=== PATIENT | female | born 1985 | race Caucasian/White ===

== ENCOUNTER 2020-03-04 13:00 | Emergency (ER) | payer BC, SELFPAY ==
[2020-03-04 13:28] VITALS: BP 148/89; PULSE 89; RESP 16; TEMP 37; O2SAT 100; BMI 46.0
--- NOTE | 2020-03-04 13:52 | ED_ITS ---
HPI - Female Genitourinary General Chief complaint: Vaginal Bleeding Stated complaint: abd pain, heavy vaginal bleeding Time Seen by Provider: 03/04/20 13:40 Source: patient Mode of arrival: ambulatory Limitations: no limitations History of Present Illness HPI Narrative: patient presents to ED for vaginal bleeding for 1 week. Patient states heavy bleeding with blood clots. Patient states her menstruation are i rregular. Patient states she took a test last week that was negative. Patient states no fever, chills, dysuria, recent abdominal trauma. Patient states no nausea or vomiting. patient states this happened last year also and bleeding was for six month. patient denies any dizziness or weakness.. Related Data Home Medications Medication Instructions Recorded Confirmed ferrous sulfate 325 mg (65 mg 325 mg PO BID 02/06/20 02/06/20 iron) tablet Previous Rx's Medication Instructions Recorded naproxen 500 mg PO BID PRN #20 tab 03/04/20 Allergies Allergy/AdvReac Type Severity Reaction Status Date / Time Sulfa (Sulfonamide Allergy Unknown hives Verified 01/09/20 00:00 Antibiotics) sulfamethoxazole Allergy Unknown HIVES Verified 03/04/20 14:19 [From BACTRIM] trimethoprim [From BACTRIM] Allergy Unknown HIVES Verified 03/04/20 14:19 Review of Systems Review of Systems: Yes all other systems are reviewed and are negative Constitutional: Constitutional: Reports as per HPI and Reports no additional constitutional complaints Eyes: Eyes: Reports as per HPI and Reports no additional eye complaints ENT: Reports system reviewed and no additional complaints, except as docume nted, Reports as per HPI and Denies dysphagia Cardiovascular: Cardiovascular: Reports as per HPI, Reports no additional cardiovascular complaints, Denies Abdominal Cramping after Meds, Denies pedal edema, Denies edema, Denies irregular heart rhythm, Denies dyspnea on exertion, Denies orthopnea and Denies paroxysmal nocturnal dyspnea Respiratory: Respiratory: Reports as per HPI, Reports no additional respiratory complaints and Denies dyspnea on exertion Gastrointestinal: Gastrointestinal: Denies no additional gastrointestinal complaints, Reports abdominal pain, Denies belching, Denies melena, Denies bloating, Denies hematochezia, Denies change in bowel habits, Denies tenesmus, Denies change in stool character, Denies coffee ground emesis, Denies constipation, Denies GI cramping, Denies dysphagia, Denies excessive flatus, Denies early satiety, Denies dyspepsia, Denies heartburn and Denies fecal incontinence Genitourinary: Genitourinary: Reports no additional female genitourinary complaints, Reports abnormal vaginal bleeding and Reports pelvic pain Musculoskeletal: Musculoskeletal: Reports no additional musculoskeletal complaints and Reports as per HPI Neurologic: Reports as per HPI Psychiatric: Psychiatric: Reports no additional psychiatric complaints and Reports as per HPI [facility] Past Medical History Attestation statement: The following information was validated with the patient. Medical History Anemia History of anemia History of PCOS Panic attack Surgical History History of myringotomy History of tonsillectomy Family History Family History Father Acute PA CVD (cardiovascular disease) Mother HTN (hypertension) Diabetes mellitus Depression Maternal Grandmother Lung cancer Paternal Grandmother Brain aneurysm CVD (cardiovascular disease) Social History Social History Advance Directives: No Advance Directives Information Provided: Yes Physical Exam Vital Signs: Vital Signs: Vital Signs Temp Pulse Resp BP Pulse Ox 03/04/20 16:50 84 20 132/78 98 03/04/20 14:58 97.7 F 71 18 124/54 L 98 03/04/20 13:28 98.6 F 89 16 148/89 H 100 Body Mass Index 46.0 Const: General: cooperative, healthy appearing, comfortable, no acute distress, well developed, alert and awake Orientation/consciousness: patient oriented x3 HENMT: Head: Yes normal to inspection and Yes No palpable skull fracture present Eyes: General: appearance normal, both eyes and all related structures Neck: Neck: Yes normal visual inspection, Yes full ROM, Yes no lymphadenopathy, Yes no meningeal signs, No positive Brudzinski's sign and No positive Kernig's sign Chest: Chest palpation & inspection: normal inspection of the chest, normal palpation of entire chest wall and no localized rib tenderness Resp: Effort & Inspection: normal respiratory effort, able to speak in complete sentences, no grunting, not labored, no nasal flaring, no paradoxical thoraco-abdom movements, no segmental paradox chest wall movement, no stridor and not tachypneic Auscultation: clear to auscultation bilaterally, no crackles, no rales, no rhonchi and no wheezes Percussion: percussion normal Cardio: Jugular venous distension: no JVD Heart sounds: S1 normal heart sound present and S2 normal heart sound present GI: Inspection: Yes normal to inspection, No abdominal wall ecchymosis and No Abdominal wall edema Palpation (GI): Soft to palpation, not firm, Tenderness to palpation present (GI) ( pelvic tenderness), no guarding and not rigid : Other: negative for any hemorrhagic bleeding. negative for any vaginal lesions. General: No CVA tenderness and Yes no CVA tenderness External Female Exam: normal external appearance Speculum Exam - Vagina: vaginal bleeding ( stable vaginal bleeding from cervical ox. Negative any blood clots.) Bimanual exam- vagina & uterus: normal bimanual exam OB/external & speculum: vaginal bleeding ( stable vaginal bleeding from cervical ox. Negative any blood clots.) Back/Spine/Pelvis: Back: no CVA tenderness, No CVA tenderness and No back tenderness Skin: General skin exam: no rashes or lesions noted Trauma: no lacerations or abrasions Neuro: General: patient oriented x3, gait normal, no meningeal signs and CN's II-XI intact bilaterally Cranial nerves: Yes CN's II-XII intact bilaterally Extrem: General: Yes normal to inspection and Yes full ROM Psych: Appearance: grossly normal, well kempt and not disheveled Course Course Course Narrative: patient will have labs including a CT to rule out . Patient will have pelvic exam done. Most likely patient will be sent for pelvic/ transvaginal ultrasound. IV fluids ordered. Reevaluation(s) Reevaluation #1: Patient is in severe pain and requests pain medication. Patient given morphine. Patient was informed that we would rather wait for results to see if she is , but patient states pain is unbearable and cannot wait for her results. Patient agrees to take morphine understanding risk. Time: 13:40 Reevaluation #2: pelvic exam does not show hemorrhaging, profuse bleeding, or blood clots. Bleeding is stable. Spoke with Dr. Randolph of [facility] and he was informed of patient's history, physical exam, diagnostics, and vital signs. He was sent pictures of patient labs and imaging. He states patient can be discharged follow-up with his OBGYN clinic. He does not recommend patient being discharged with control pills, due to patient having history of stroke. He states he will talk to patient about ablation. Patient will be discharged with pain medication. Time: 17:36 MDM - Female Genitourinary MDM Narrative Medical decision making narrative: Dysfunctional uterine bleeding. Medical Records Attestation: I reviewed the patient's medical records. Lab Data Attestation: I reviewed the patient's lab results. Result diagrams: 03/04/20 14:12 03/04/20 14:16 Labs: Lab Results 03/04/20 03/04/20 03/04/20 Range/Units 14:12 14:16 14:16 WBC 9.2 (4.8-10.8) X10*3/uL RBC 4.30 (4.20-5.50) X10*6/uL Hgb 10.8 L (12.0-16.0) g/dl Hct 34.7 L (37-47) % MCV 80.7 (80-98) fL MCH 25.1 L (27.0-33.0) pg MCHC 31.1 (31.0-35.0) g/dl RDW 15.0 (11.0-16.0) % Plt Count 397 (160-400) X10*3/uL MPV 9.2 L (9.4-12.3) fL Immature Gran % (Auto) 0.2 (0.0-0.4) % Neut % (Auto) 64.8 (45-73) % Lymph % (Auto) 27.0 (20-40) % Harper % (Auto) 6.0 (2-11) % Eos % (Auto) 1.7 (0-4) % Baso % (Auto) 0.3 (0-2) % Lymph # (Auto) 2.5 (1.2-4.9) X10*3/uL Harper # (Auto) 0.6 (0.1-1.2) X10*3/uL Eos # (Auto) 0.2 (0.0-0.4) X10*3/uL Baso # (Auto) 0.0 (0.0-0.2) X10*3/uL Abs Immat Gran (auto) 0.02 (0.00-0.03) X10*3/uL Absolute Neuts (auto) 5.9 (2.0-8.3) X10*3/uL Absolute Nucleated RBC 0.000 (0.0-0.012) X10*3/uL Nucleated RBC % (auto) 0.0 (0.0-0.2) /100WBC PT 11.6 (10.8-13.0) SEC INR 1.0 (0.9-1.1) APTT 35.9 (24.1-38.0) SEC Sodium 136 (135-145) mmol/L Potassium 4.1 (3.3-5.1) mmol/l Chloride 103 (96-108) mmol/L Carbon Dioxide 26 (22-29) mmol/L Anion Gap 11 L (12-20) BUN 7 L (9-16) mg/dL Creatinine 0.82 (0.5-1.4) mg/dL Estim Creat Clear Calc 121.1 Estimated GFR > 60 Random Glucose 135 H (60-115) mg/dL Calcium 8.4 (8.4-10.2) mg/dL Total Bilirubin 0.2 (0.0-1.0) mg/dL Direct Bilirubin (0.0-0.5) mg/dL AST 19 (5-31) U/L ALT 21 (0-31) U/L Alkaline Phosphatase 101 (39-117) U/L Total Protein 6.9 (6.5-8.0) g/dL Albumin 4.1 (3.5-5.0) g/dL Lipase (8-78) U/L Beta HCG, Quant < 2 mIU/mL Urine Color Urine Appearance Urine pH (5.0-8.0) Ur Specific [place] (1.005-1.025) Urine Protein (NEG-TRACE) MG/DL Urine Glucose (UA) (NEG) MG/DL Urine Ketones (NEG) MG/DL Urine Blood (NEG) Urine Nitrite (NEG) Ur Leukocyte Esterase (NEG) Urine RBC (0) /HPF Urine WBC (0-4) /HPF Ur Squamous Epith Cells /LPF Urine Bacteria /LPF 03/04/20 03/04/20 Range/Units 14:16 15:29 WBC (4.8-10.8) X10*3/uL RBC (4.20-5.50) X10*6/uL Hgb (12.0-16.0) g/dl Hct (37-47) % MCV (80-98) fL MCH (27.0-33.0) pg MCHC (31.0-35.0) g/dl RDW (11.0-16.0) % Plt Count (160-400) X10*3/uL MPV (9.4-12.3) fL Immature Gran % (Auto) (0.0-0.4) % Neut % (Auto) (45-73) % Lymph % (Auto) (20-40) % Harper % (Auto) (2-11) % Eos % (Auto) (0-4) % Baso % (Auto) (0-2) % Lymph # (Auto) (1.2-4.9) X10*3/uL Harper # (Auto) (0.1-1.2) X10*3/uL Eos # (Auto) (0.0-0.4) X10*3/uL Baso # (Auto) (0.0-0.2) X10*3/uL Abs Immat Gran (auto) (0.00-0.03) X10*3/uL Absolute Neuts (auto) (2.0-8.3) X10*3/uL Absolute Nucleated RBC (0.0-0.012) X10*3/uL Nucleated RBC % (auto) (0.0-0.2) /100WBC PT (10.8-13.0) SEC INR (0.9-1.1) APTT (24.1-38.0) SEC Sodium (135-145) mmol/L Potassium (3.3-5.1) mmol/l Chloride (96-108) mmol/L Carbon Dioxide (22-29) mmol/L Anion Gap (12-20) BUN (9-16) mg/dL Creatinine (0.5-1.4) mg/dL Estim Creat Clear Calc Estimated GFR Random Glucose (60-115) mg/dL Calcium (8.4-10.2) mg/dL Total Bilirubin 0.2 (0.0-1.0) mg/dL Direct Bilirubin < 0.2 (0.0-0.5) mg/dL AST 19 (5-31) U/L ALT 21 (0-31) U/L Alkaline Phosphatase 102 (39-117) U/L Total Protein 6.8 (6.5-8.0) g/dL Albumin 4.1 (3.5-5.0) g/dL Lipase 25 (8-78) U/L Beta HCG, Quant mIU/mL Urine Color RED Urine Appearance TURBID Urine pH 7.5 (5.0-8.0) Ur Specific [place] 1.025 (1.005-1.025) Urine Protein 3+ H (NEG-TRACE) MG/DL Urine Glucose (UA) NEG (NEG) MG/DL Urine Ketones NEG (NEG) MG/DL Urine Blood 3+ H (NEG) Urine Nitrite NEG (NEG) Ur Leukocyte Esterase TRACE H (NEG) Urine RBC TNTC H (0) /HPF Urine WBC 0-2 (0-4) /HPF Ur Squamous Epith Cells NONE /LPF Urine Bacteria 1+ /LPF Discharge Plan Discharge Clinical Impression: Vaginal bleeding, Dysfunctional uterine bleeding Patient Disposition: Home, Self-Care Instructions: Dysfunctional Uterine Bleeding (ED) Additional Instructions: Return to the ED immediately for worsening vaginal bleeding, weakness, passing out, nausea, vomiting, worsening abdominal pain, dizziness, or any other concerning symptoms. Prescriptions: New naproxen 500 mg tablet 500 mg PO BID PRN (Reason: pain) Qty: 20 RF: 0 No Action ferrous sulfate 325 mg (65 mg iron) tablet 325 mg PO BID RF: 0 Referrals: Allen Randolph MD [Physician] - 2 days ( vaginal bleeding for 1 week.) Print Language: Irish
[2020-03-04] MEDS: 0.9 % Sodium Chloride 1,000 ML 999 ML IVCONT (14:20)
[2020-03-04 14:23] LABS: MANUAL DIFF FLAG NO
[2020-03-04 14:25] LABS: Basophils Percent Auto 0.3 % (0-2); Eosinophils Absolute Auto 0.2 X10*3/uL (0.0-0.4); Eosinophils Percent Auto 1.7 % (0-4); Hematocrit 34.7 % (37-47); Hemoglobin 10.8 g/dl (12.0-16.0); Imm Gran Abs Auto 0.02 X10*3/uL (0.00-0.03); Imm Gran Pct Auto 0.2 % (0.0-0.4); Lymphocytes Absolute Auto 2.5 X10*3/uL (1.2-4.9); Mean Corpuscular HGB Conc 31.1 g/dl (31.0-35.0); Mean Corpuscular Hemoglobin 25.1 pg (27.0-33.0); Mean Corpuscular Volume 80.7 fL (80-98); Mean Platelet Volume 9.2 fL (9.4-12.3); Monocytes Absolute Auto 0.6 X10*3/uL (0.1-1.2); Neutrophils Absolute Auto 5.9 X10*3/uL (2.0-8.3); Neutrophils Percent Auto 64.8 % (45-73); Platelet Count 397 X10*3/uL (160-400); White Blood Count 9.2 X10*3/uL (4.8-10.8)
[2020-03-04] MEDS: Morphine Sulfate 4 MG/ML CARTRIDGE IVPUSH (14:36)
[2020-03-04 14:41] LABS: Prothrombin Time 11.6 SEC (10.8-13.0)
[2020-03-04 14:44] LABS: Partial Thromboplastin Time 35.9 SEC (24.1-38.0)
[2020-03-04 14:46] LABS: Alanine Aminotransferase 21 U/L (0-31); Albumin Level 4.1 g/dL (3.5-5.0); Alkaline Phosphatase 101 U/L (39-117); Anion Gap 11 (12-20); Aspartate Amino Transferase 19 U/L (5-31); Bilirubin Total 0.2 mg/dL (0.0-1.0); Blood Urea Nitrogen 7 mg/dL (9-16); Calcium 8.4 mg/dL (8.4-10.2); Carbon Dioxide 26 mmol/L (22-29); Chloride 103 mmol/L (96-108); Creatinine Clr Calc Pharmacy 121.1; Estimated Glomerular Filt Rate > 60; Glucose Random 135 mg/dL (60-115); Potassium 4.1 mmol/l (3.3-5.1); Sodium 136 mmol/L (135-145); Total Protein 6.9 g/dL (6.5-8.0)
[2020-03-04 14:48] LABS: Alanine Aminotransferase 21 U/L (0-31); Albumin Level 4.1 g/dL (3.5-5.0); Alkaline Phosphatase 102 U/L (39-117); Aspartate Amino Transferase 19 U/L (5-31); Bilirubin Direct < 0.2 mg/dL (0.0-0.5); Bilirubin Total 0.2 mg/dL (0.0-1.0); Lipase 25 U/L (8-78); Total Protein 6.8 g/dL (6.5-8.0)
[2020-03-04 14:54] LABS: HCG Quantitative < 2 mIU/mL
[2020-03-04 14:58] VITALS: BP 124/54; PULSE 71; RESP 18; TEMP 36.5; O2SAT 98
--- NOTE | 2020-03-04 15:10 | US_ITS ---
EXAMINATION: ULTRASOUND PELVIC, COMPLETE CLINICAL INFORMATION: Vaginal bleeding. Pelvic pain. COMPARISON: Pelvic ultrasound 10/31/2019 TECHNIQUE: Transvaginal: Used to better visualize pelvic structures Transabdominal: Not adequate visualization Spectral Doppler and color Doppler exam was utilized. LMP: 01/19/2020 FINDINGS: UTERUS: Uterus is unremarkable. Uterus measures 9 x 5 x 5.8 cm. Endometrial thickness is 0.9 cm. Nabothian cysts at cervix. ADNEXA: Ovarian vascularity:Doppler demonstrates both arterial and venous vascular flow in the right and left ovary. No evidence of ovarian torsion. Right Ovary: 3.5 x 2.7 x 2.5 cm. Volume 12.7 mL Left Ovary: 3.1 x 2.9 x 2.6 cm. Volume 12.2 mL Cul-de-sac: No Fluid US/US transvaginal IMPRESSION: Normal ultrasound of pelvis.
--- NOTE | 2020-03-04 15:10 | US_ITS ---
EXAMINATION: ULTRASOUND PELVIC, COMPLETE CLINICAL INFORMATION: Vaginal bleeding. Pelvic pain. COMPARISON: Pelvic ultrasound 10/31/2019 TECHNIQUE: Transvaginal: Used to better visualize pelvic structures Transabdominal: Not adequate visualization Spectral Doppler and color Doppler exam was utilized. LMP: 01/19/2020 FINDINGS: UTERUS: Uterus is unremarkable. Uterus measures 9 x 5 x 5.8 cm. Endometrial thickness is 0.9 cm. Nabothian cysts at cervix. ADNEXA: Ovarian vascularity:Doppler demonstrates both arterial and venous vascular flow in the right and left ovary. No evidence of ovarian torsion. Right Ovary: 3.5 x 2.7 x 2.5 cm. Volume 12.7 mL Left Ovary: 3.1 x 2.9 x 2.6 cm. Volume 12.2 mL Cul-de-sac: No Fluid US/US pelvic complete IMPRESSION: Normal ultrasound of pelvis.
--- NOTE | 2020-03-04 15:10 | US_ITS ---
EXAMINATION: ULTRASOUND PELVIC, COMPLETE CLINICAL INFORMATION: Vaginal bleeding. Pelvic pain. COMPARISON: Pelvic ultrasound 10/31/2019 TECHNIQUE: Transvaginal: Used to better visualize pelvic structures Transabdominal: Not adequate visualization Spectral Doppler and color Doppler exam was utilized. LMP: 01/19/2020 FINDINGS: UTERUS: Uterus is unremarkable. Uterus measures 9 x 5 x 5.8 cm. Endometrial thickness is 0.9 cm. Nabothian cysts at cervix. ADNEXA: Ovarian vascularity:Doppler demonstrates both arterial and venous vascular flow in the right and left ovary. No evidence of ovarian torsion. Right Ovary: 3.5 x 2.7 x 2.5 cm. Volume 12.7 mL Left Ovary: 3.1 x 2.9 x 2.6 cm. Volume 12.2 mL Cul-de-sac: No Fluid US/US pelvic ovarian doppler IMPRESSION: Normal ultrasound of pelvis.
[2020-03-04 16:29] LABS: Glucose Urine UA NEG (NEG); Leukocyte Esterase Urine TRACE (NEG); Nitrite Urine NEG (NEG); PH 7.5 (5.0-8.0); Specific Gravity - Urine 1.025 (1.005-1.025); Urine Blood 3+ (NEG); Urine Ketones NEG (NEG); Urine Protein 3+ MG/DL (NEG-TRACE)
[2020-03-04 16:30] LABS: Appearance Urine TURBID
[2020-03-04 16:31] LABS: Color Urine RED
[2020-03-04 16:33] LABS: Bacteria Urine 1+ /LPF; RBC Urine TNTC /HPF (0); WBC Urine 0-2 /HPF (0-4)
[2020-03-04 16:50] VITALS: BP 132/78; PULSE 84; RESP 20; O2SAT 98
--- NOTE | 2020-03-04 16:51 | PC.NURSE ---
pt moved from room 10, into 7 pt reports for the last two days having really heavy vaginal bleeding, with dark blood/clots, going through 5 pads today, and lower abd/pelvis pain, some nausea but no vomiting at this time, vs stable
[2020-03-04] MEDS: Ketorolac Tromethamine 30 MG/ML VIAL IVPUSH (17:57)
== END 2020-03-04 18:14 | disposition home or self-care (01) ==
PROVIDERS: Physician Assistant; Emergency Provider Internal Medicine; PCP Nurse Practitioner Family
DX: N93.8 Other specified abnormal uterine and vaginal bleeding (principal); R10.2 Pelvic and perineal pain; Z79.899 Other long term (current) drug therapy
CPT/HCPCS: 36415; 76830; 76856; 80053; 80076; 81001; 82248; 83690; 84702; 85025; 85610; 85730; 87086; 93975; 96361; 96374; 96375; 99284; J1885; J2270

== ENCOUNTER 2020-08-20 16:47 | Outpatient (REF) | payer BC, SELFPAY ==
--- NOTE | ~2020-08-20 | XR_ITS ---
EXAMINATION: XR KNEE, RIGHT CLINICAL INFORMATION: Right knee pain COMPARISON: None TECHNIQUE: Four views of the right knee. FINDINGS: Bones and soft tissues are normal. No fracture or joint effusion. Alignment is anatomic. Joint spaces are well maintained. No abnormal soft tissue calcification. XR/XR knee RT 4V IMPRESSION: Normal right knee.
== END 2020-08-20 16:48 | disposition home or self-care (01) ==
LOC: HO.HMGCX 16:47
PROVIDERS: PCP Nurse Practitioner Family; Visit Provider Nurse Practitioner Family
DX: M25.561 Pain in right knee (principal)
CPT/HCPCS: 73564

== ENCOUNTER 2021-02-02 15:21 | Outpatient (REF) | payer BC, SELFPAY ==
[2021-02-02 16:40] LABS: MANUAL DIFF FLAG NO
[2021-02-02 16:42] LABS: Basophils Percent Auto 0.3 % (0-2); Eosinophils Absolute Auto 0.1 X10*3/uL (0.0-0.4); Eosinophils Percent Auto 1.5 % (0-4); Hematocrit 30.3 % (37-47); Hemoglobin 9.4 g/dl (12.0-16.0); Imm Gran Abs Auto 0.03 X10*3/uL (0.00-0.03); Imm Gran Pct Auto 0.3 % (0.0-0.4); Lymphocytes Absolute Auto 2.8 X10*3/uL (1.2-4.9); Lymphocytes Percent Auto 29.3 % (20-40); Mean Corpuscular Hemoglobin 24.5 pg (27.0-33.0); Mean Corpuscular Volume 78.9 fL (80-98); Mean Platelet Volume 8.9 fL (9.4-12.3); Monocytes Absolute Auto 0.5 X10*3/uL (0.1-1.2); Monocytes Percent Auto 4.9 % (2-11); Neutrophils Percent Auto 63.7 % (45-73); Platelet Count 445 X10*3/uL (160-400); Red Blood Count 3.84 X10*6/uL (4.20-5.50); Red Cell Distribution Width 14.5 % (11.0-16.0); White Blood Count 9.4 X10*3/uL (4.8-10.8)
[2021-02-02 16:56] LABS: Alanine Aminotransferase 20 U/L (0-31); Albumin Level 4.5 g/dL (3.5-5.0); Alkaline Phosphatase 103 U/L (39-117); Anion Gap 13 (12-20); Aspartate Amino Transferase 17 U/L (5-31); Bilirubin Total 0.3 mg/dL (0.0-1.0); Blood Urea Nitrogen 9 mg/dL (9-16); Carbon Dioxide 23 mmol/L (22-29); Chloride 107 mmol/L (96-108); Estimated Glomerular Filt Rate > 60; Glucose Fasting 117 mg/dL (60-99); Potassium 4.4 mmol/L (3.3-5.1); Sodium 139 mmol/L (135-145); Total Protein 7.3 g/dL (6.5-8.0)
[2021-02-02 17:16] LABS: Ferritin 7 ng/mL (10-122); TSH reflex Free T4 3.62 uIU/mL (0.32-4.0)
[2021-02-02 17:31] LABS: Urine Cytology See Pathology rpt
== END 2021-02-02 15:22 | disposition home or self-care (01) ==
LOC: HO.HMGCLDS 15:21
PROVIDERS: PCP Nurse Practitioner Family; Visit Provider Nurse Practitioner Family
DX: R31.9 Hematuria, unspecified (principal)
CPT/HCPCS: 36415; 80053; 82728; 84443; 85025; 87086; 88112

== ENCOUNTER 2021-06-23 07:50 | Outpatient (REF) | payer OTHER, SELFPAY ==
--- NOTE | ~2021-06-23 | CT_ITS ---
EXAMINATION: CT ABDOMEN AND PELVIS WITHOUT AND WITH CONTRAST CLINICAL INFORMATION: Hematuria. COMPARISON: Pelvic ultrasound 02/25/2020. CT abdomen 08/09/2016. TECHNIQUE: Multidetector volumetric imaging was performed of the abdomen and pelvis before and after the IV administration of 100 mL of Omnipaque 300 intravenous contrast. Sagittal and coronal reformatted images were obtained on the technologist's workstation. This CT examination was performed using dose optimization techniques as appropriate, variously including the following: *Automated exposure control *Adjustment of mA and/or kV according to patient size (this includes techniques or standardized protocols for targeted exams where dose is matched to indication/reason for exam; i.e. extremities or head) *Use of iterative reconstruction technique DLP: 1403 mGy-cm FINDINGS: LUNG BASES: The visualized lung bases are unremarkable. LIVER, GALLBLADDER, AND BILIARY TREE: The liver is normal in size, shape, and attenuation. No focal hepatic lesion or biliary ductal dilatation is present. The gallbladder has been surgically removed. PANCREAS: Unremarkable. SPLEEN: Unremarkable. ADRENAL GLANDS: Unremarkable. KIDNEYS AND URETERS: The kidneys are normal in size, shape, and attenuation. No hydronephrosis, hydroureter, or calculi seen. No perinephric stranding. BLADDER: Unremarkable. GASTROINTESTINAL TRACT: Minimal scattered stool seen in the right colon without colonic distention. The small bowel loops are normal. Appendix is normal caliber. No inflammatory process seen in the abdomen. ABDOMINAL WALL: Small umbilical hernia containing fat is noted. LYMPH NODES: Small left para-aortic retroperitoneal lymph nodes. Largest left para-aortic retroperitoneal 1 cm lymph node axial image 32/3, nonspecific. VASCULAR: The aorta is normal caliber. PELVIC VISCERA: The uterus is anteverted and appears unremarkable. Scattered phleboliths seen in the right adnexa. OSSEOUS STRUCTURES: Unremarkable. CT/CT abdomen pelvis wo/w con IMPRESSION: No acute intra-abdominal process seen. Especially, there is no radiopaque renal calculi or hydroureteronephrosis. No major change compared to previous study 08/09/2016. Fleischner guidelines were followed.
[2021-06-23] MEDS: iohexoL 350 MG/ML 100 ML INFUS..BTL IV (08:41)
== END 2021-06-23 07:51 | disposition home or self-care (01) ==
LOC: HO.CT 07:50
PROVIDERS: PCP Nurse Practitioner Family; Visit Provider Nurse Practitioner Family
DX: R31.9 Hematuria, unspecified (principal)
CPT/HCPCS: 74178; Q9967

== ENCOUNTER 2021-10-06 09:46 | Outpatient (REF) | payer OTHER, SELFPAY ==
--- NOTE | ~2021-10-06 | XR_ITS ---
EXAMINATION: XR LUMBOSACRAL SPINE CLINICAL INFORMATION: Low back pain COMPARISON: Lumbar spine 12/25/2018 TECHNIQUE: Three views of the lumbosacral spine. FINDINGS: There is normal lumbar lordosis. The vertebral heights and alignment is normal. There is loss of L5-S1 disc height. Rest the disc heights are normal. There is no visible acute fracture, dislocation or subluxation seen. The SI joints are symmetrical and normal. XR/XR lumbar spine 2-3V IMPRESSION: Minimal degenerative disc changes L5-S1 disc level. Otherwise rest of the lumbar spine is unremarkable.
[2021-10-06 11:38] LABS: Hemoglobin 9.9 g/dl (12.0-16.0); Mean Corpuscular Volume 73.5 fL (80.0-98.0); Mean Platelet Volume 8.9 fL (9.4-12.3); Platelet Count 434 X10*3/uL (160-400); Red Blood Count 4.49 X10*6/uL (4.20-5.50); Red Cell Distribution Width 16.5 % (11.0-16.0); White Blood Count 8.9 X10*3/uL (4.8-10.8)
== END 2021-10-06 09:47 | disposition home or self-care (01) ==
LOC: HO.HMGCX 09:46
PROVIDERS: Visit Provider Nurse Practitioner Family
DX: M54.50 Low back pain, unspecified (principal)
CPT/HCPCS: 36415; 72100; 85027

== ENCOUNTER 2021-11-16 15:46 | Outpatient (REF) | payer OTHER, SELFPAY ==
--- NOTE | ~2021-11-16 | MR_ITS ---
EXAMINATION: MR LUMBAR SPINE WITHOUT AND WITH CONTRAST CLINICAL INFORMATION: Low back pain, unspecified. COMPARISON: Lumbar spine MRI 10/08/2014. TECHNIQUE: MRI of the lumbar spine was obtained using routine sequences without and with intravenous contrast. A total of 10 mL Gadavist was intravenously administered. FINDINGS: The lumbar vertebral bodies maintain normal heights and alignment. The disc heights are preserved. No bone marrow edema is seen. The distal spinal cord appears normal. The conus medullaris terminates normally at the L1 level. No cauda equina nerve root enhancement is seen. The extraspinal soft tissues are unremarkable. Small retroperitoneal lymph nodes are demonstrated along the para-aortic stations, similar compared with prior CT of the abdomen and pelvis from 06/23/2021. SPINAL LEVELS: L1-L2: No posterior disc abnormality. No spinal canal or neural foraminal stenosis. L2-L3: No posterior disc abnormality. Mild facet arthropathy. No spinal canal or neural foraminal stenosis. L3-L4: Mild disc bulging with mild facet arthropathy. Mild bilateral neural foraminal stenosis. No spinal canal stenosis. L4-L5: No posterior disc abnormality. Mild facet arthropathy. No spinal canal or neural foraminal stenosis. L5-S1: No posterior disc abnormality. Mild facet arthropathy. No spinal canal or neural foraminal stenosis. MR/MR lumbar spine wo/w con IMPRESSION: Mild degenerative spondylosis. No significant narrowing of the spinal canal. No nerve root compression.
== END 2021-11-16 15:47 | disposition home or self-care (01) ==
LOC: HO.MRI 15:46
PROVIDERS: Visit Provider Nurse Practitioner Family
DX: M54.50 Low back pain, unspecified (principal)
CPT/HCPCS: 72158; A9585

== ENCOUNTER 2021-11-17 10:54 | Emergency (ER) | payer OTHER, SELFPAY ==
[2021-11-17 11:25] VITALS: BP 145/76; PULSE 86; RESP 18; TEMP 36.8; O2SAT 96; BMI 45.1
[2021-11-17 11:52] LABS: COVID-19 Test Negative (Negative)
[2021-11-17 11:54] LABS: Strep A Nucleic Acid Negative (Negative)
--- NOTE | 2021-11-17 11:54 | ED.GENADULT ---
HPI - General Adult General Chief complaint: Upper Respiratory Symptoms Stated complaint: sore throat diff breathing Time Seen by Provider: 11/17/21 11:47 Source: patient Mode of arrival: ambulatory Limitations: no limitations History of Present Illness HPI narrative: Patient comes to the emergency room complaining of sore throat that started this morning. Patient states when she went to sleep, she was feeling fine. However, throughout the night she woke up with mild sore throat. This morning patient had pain swallowing. Patient has no difficulty breathing, denies fever or chills. Also, patient complaining of right calf pain. Patient states that yesterday while she was walking, she learned a popping noise coming from the right calf. Patient states that her head calf has been hurting since then. When she is at rest, she does not have any pain, denies swelling, patient has been able to bear weight but any rotation movement makes it worse. At rest she has no pain. Related Data Previous Rx's Medication Instructions Recorded lorazepam 1 mg tablet 1 mg PO DAILY 30 days #30 tabs 07/13/21 albuterol sulfate 90 mcg/actuation 1 inh inhalation QID PRN shortness 07/14/21 aerosol inhaler of breath or wheezing #8.5 grams omeprazole 20 mg capsule,delayed 20 mg PO BID 30 days #60 caps 07/26/21 release sertraline 25 mg tablet 25 mg PO DAILY 30 days #30 tabs 09/07/21 Allergies Allergy/AdvReac Type Severity Reaction Status Date / Time Sulfa (Sulfonamide Allergy Unknown hives Verified 10/06/21 10:08 Antibiotics) sulfamethoxazole Allergy Unknown HIVES Verified 10/06/21 10:08 [From BACTRIM] trimethoprim [From BACTRIM] Allergy Unknown HIVES Verified 10/06/21 10:08 Review of Systems Review of Systems: Constitutional : No Weight loss, No Fever, No Chills, No Night Sweats, No Fatigue, No Malaise ENT/Mouth : No Hearing loss, No Ear Pain, No Nasal Congestion, No Sinus Pain, No Hoarseness, complaining of sore throat, No Rhinorrhea, No Swallowing Difficulty Eyes: No Eye Pain, No Swelling, No Redness, No Foreign Body, No Discharge, No Vision Changes Cardiovascular : No Chest Pain, No SOB, No Dyspnea on Exertion, No Orthopnea, No Edema, No Palpitations Respiratory : No Cough, No Sputum, No Wheezing, No Smoke Exposure, No Dyspnea Gastrointestinal : No Nausea, No Vomiting, No Diarrhea, No Constipation, No abdominal Pain, No Hematochezia, No Melena Genitourinary : no irregular bleeding, No Dysuria, No Urinary Frequency, No Hematuria, No Urinary Incontinence, No Urgency, No Flank Pain, No Urinary Flow Changes, No Hesitancy Musculoskeletal : No joint pain, complaining of right calf pain, No Joint Swelling Skin : No Skin Lesions, No rash Neuro : No Weakness, No Numbness, No Paresthesias, No Loss of Consciousness, No Dizziness, No Headache Psych : No Anxiety/Panic, No Depression, No SI/HI/AH/VH, No Social Issues, Heme/Lymph: No Bruising, No Bleeding,No Lymphadenopathy Endocrine : No Polyuria, No Polydipsia, No Temperature Intolerance [facility] Past Medical History Medical History Anemia History of anemia History of PCOS Panic attack PTSD (post-traumatic stress disorder) Surgical History History of myringotomy History of tonsillectomy Family History Family History Father Acute [place] CVD (cardiovascular disease) Mother HTN (hypertension) Diabetes mellitus Depression Maternal Grandmother Lung cancer Paternal Grandmother Brain aneurysm CVD (cardiovascular disease) Social History Social History Housing: Apartment Patient Tobacco Use Status: Former Tobacco user Quit Date: quit 8 years ago e-Cigarette/Vaping Use: Never Used Second Hand Smoke Exposure: Yes service: No Current occupational status: employed Current occupation: [employer] Current occupational exposures/hazards: No Cognitive needs: No Hearing needs: No Vision needs: No Physical Exam ED Vital Signs: Vital Signs - 24 hr 11/17/21 11:25 Temperature 98.3 F Pulse Rate 86 Respiratory Rate 18 Blood Pressure 145/76 H Pulse Oximetry 96 Oxygen Delivery Method Room Air BMI result Body Mass Index 45.1 Const Other: Appearance: Alert. Oriented X3. No acute distress. Eyes: Pupils equal, round and reactive to light. ENT: Erythematous pharynx, no exudates no swelling, uvula is very mildly swollen, midline, nonobstructing, patient handling secretions within normal limits Neck: Normal inspection. Neck supple. No lymph nodes noted. No crepitus CVS: Normal heart rate and rhythm. Pulses normal. Normal S1 and S2 Respiratory: No respiratory distress. Breath sounds normal. No Wheezing. No rales Abdomen: Soft and nontender. No rigidity. No distention. Skin: Skin warm and dry. Normal skin color. Normal skin turgor. Extremities: No lower extremity edema. Right and left calf are the same size. There is no swelling on the right calf, at rest there is no pain, pain to palpation over the right gastrocnemius muscles and with foot flexion and extension Neuro: Oriented X 3. No motor deficit. No sensory deficit. Moving all extremities. No slurred speech. CN 2 through 12 grossly intact Psych: calm, cooperative, normal affect Course Course Course Narrative: Strep test and COVID test pending Patient was given 1 dose of p.o. viscous lidocaine and dexamethasone. I discussed with the patient that she likely has a muscle injury, wells score for DVT is -2 Strep test and COVID test are negative. Mononucleosis is not suspected at this time. Patient likely has viral pharyngitis Medical Decision Making Lab Data Labs: Lab Results 11/17/21 11/17/21 Range/Units 11:30 11:30 COVID-19 (LUDWIG) Negative (Negative) COVID-19 Clin Com See Note S. pyogenes GrpA ANTON Negative (Negative) Scores Wells DVT Alternative Dx as likely as or more likely than DVT: -2 Score: -2 2-tier Risk: unlikely risk (5%) 3-tier Risk: low risk (3%) Discharge Plan Discharge Clinical Impression: Acute viral pharyngitis, Gastrocnemius strain Patient Disposition: Home, Self-Care Instructions: Muscle Strain (ED), Pharyngitis (ED) Additional Instructions: Please follow-up with your primary care physician tomorrow. If you have any worsening or new symptoms, please return to the emergency room or call 911 Prescriptions: No Action lorazepam 1 mg tablet 1 mg PO DAILY 30 Days Qty: 30 2RF omeprazole 20 mg capsule,delayed release(DR/EC) 20 mg PO BID 30 Days Qty: 60 3RF sertraline 25 mg tablet 25 mg PO DAILY 30 Days Qty: 30 3RF albuterol sulfate 90 mcg/actuation HFA aerosol inhaler 1 inh inhalation QID PRN (Reason: shortness of breath or wheezing) Qty: 8.5 2RF
[2021-11-17] MEDS: dexAMETHasone sod phosphate 4 MG/ML VIAL 6 MG IVPUSH (12:13)
[2021-11-17] MEDS: Lidocaine HCl Viscous 2 % 15 ML SOLUTION MUCOUS MEM (12:14)
== END 2021-11-17 12:21 | disposition home or self-care (01) ==
PROVIDERS: Emergency Provider Emergency Medicine; PCP Nurse Practitioner Family
DX: J02.9 Acute pharyngitis, unspecified (principal); S86.811A Strain of other muscle(s) and tendon(s) at lower leg level, right leg, initial encounter; X58.XXXA Exposure to other specified factors, initial encounter; Z20.822 Contact with and (suspected) exposure to COVID-19; Z87.891 Personal history of nicotine dependence; Y93.01 Activity, walking, marching and hiking; Y92.480 Sidewalk as the place of occurrence of the external cause; Y99.9 Unspecified external cause status
CPT/HCPCS: 87635; 87651; 96374; 99283; 99284; J1100

== ENCOUNTER 2022-01-26 09:00 | Outpatient (RCR) | payer OTHER, SELFPAY ==
--- NOTE | 2021-12-10 09:03 | MHC.PT.EP ---
[facility] [place] Office [place] Office [place] Office [address] Brody Kennedy [address] [phone] F: [phone] F: [phone] F: [phone] F: [phone] Physical Therapy Plan of Care Date of Evaluation: Date of Surgery: Diagnosis: LBP Assessment: 36 y/o F referred to PT with LBP. She has a hx of LBP for over 10 years following lipoma removal and keloid scarring. It has recently worsened when she was movig and pulled 'the muscle.' CUrrently pain and difficulty with sitting, standing, walking, carrying, lifting, and bending. Exaination shows decreased lumbar AROM, decreased abdominal/hip strength, B keloid scarring lumbar spine, decreased hip flexor length and impaired postural awareness. S/s consistent with SI dysfunction and muscle weakness. Recommend PT 2x/week for 6 weeks (she can only come 1x/week due to high copay) to address impairment, implement HEP, and optimize functional mobilty. Frequency and Duration: The patient will be seen 1x/week for 6 weeks Short Term Goals: 3 weeks 1 i with HEP 2. Improve lumbar AROM to WNL with pain < 3/10 [employer] Goals: 6 weeks 1 I with HEP and self management of sx 2. Will report a 50% decrease in pain with functional activities (IR 9/10) 3. Pt will be able to walk > 20 min with pain < 3/10 Treatment Plan: Modalities to reduce pain, spasms and effusion. Manual therapy to restore motion and function. Therapeutic exercise to improve strength and flexibility. Neuromuscular re-education for posture and balance. Therapeutic activities to return to functional activities of daily living. Electronically signed by: Supriya Quinones PT Please sign and return to therapist. Thank you for your referral.
--- NOTE | 2022-02-18 13:06 | MHC.PT.DC ---
[facility] [place] Office [place] Office [place] Office [address] Brody Kennedy [address] [phone] F: [phone] F: [phone] F: [phone] F: [phone] Physical Therapy Discharge Report Diagnosis: LBP Date of Surgery: Date of Evaluation: 12/10/21 Date of Discharge: Treatments to Date: 6 Cancellations to Date: 0 No Shows to Date: 0 Discharge Status: Improved Function Independent with HEP Patient Elected to Stop Discharge Summary: Pt called to self d/c reporting it is too difficult to make apointments at this time with her new job. At time of last session, she had made some improvement and I with HEP. Electronically signed by: Supriya Quinones PT Please sign and return to therapist. Thank you for your referral.
== END 2022-02-18 13:07 | disposition home or self-care (01) ==
LOC: HO.PTCHIC 09:00
PROVIDERS: PCP Nurse Practitioner Family; Visit Provider Physician Assistant Medical
DX: M54.50 Low back pain, unspecified (principal)
CPT/HCPCS: 97110; 97112; 97140; 97161

== ENCOUNTER → 2022-01-27 15:50 | Outpatient (REF) | payer OTHER, SELFPAY ==
--- NOTE | 2022-01-27 15:53 | CA_ITS ---
Transthoracic Echocardiogram Patient (Last, First, Middle): Miya Willingham M Gender: Female Date of : 1985 Age: 36 Procedure Date: 01/27/2022 Procedure Type: Transthoracic Echocardiogram Location: OP Height: 160.02 cm Weight: 116.58 kg BSA: 2.15 m2 Heart Rate: bpm BP: 100 / 76 mmHg Inspector Tubes: TO Referring MD: John Wright [facility] Symptoms: R01.1 - Cardiac murmur, unspecified Study Quality: Fair/Contrast ECG Rhythm: Sinus Conclusions: - The left ventricular systolic function is normal. The calculated ejection fraction is 59% by biplane method. - No obvious valvular pathology seen on this study. Findings Procedure Information Contrast agent, definity, is being given per protocol without apparent complications. Left Ventricle Normal left ventricular cavity size. There is mildly increased left ventricular wall thickness. The left ventricular systolic function is normal. The calculated ejection fraction is 59% by biplane method. There is no evidence of regional wall motion abnormalities. Diastolic function is normal for age. Right Ventricle Normal right ventricular cavity size and systolic function. Atria Both atria are normal in size. Aortic Valve There is a normal trileaflet aortic valve. There is no aortic valve stenosis. There is no aortic valve regurgitation. Mitral Valve The mitral valve appears normal. There is no mitral valve regurgitation. There is no mitral valve stenosis. Pulmonic Valve The pulmonic valve is likely normal. Tricuspid Valve Normal tricuspid valve structure. There is trace tricuspid valve regurgitation. There is no evidence of pulmonary hypertension. Great Vessels The aortic annulus, sinuses of valsalva, and asc aorta are normal in size. Venous The inferior vena cava is normal in size and collapses greater than 50% with inspiration. Pericardium/Pleural There is no evidence of pericardial effusion. Prior Study Comparison No prior study available for comparison. Recommendations, Care & Conclusions No obvious valvular pathology seen on this study. Measurements 2D Linear Measurements IVSd: 1.09 0.6-0.9/0.6-1.0 cm LVIDd: 4.74 3.9-5.3/4.2-5.9 cm LVIDd Index: 2.20 2.4-3.2/2.2-3.1 cm/m2 LVIDs: 2.70 2.0-3.6 cm LVPWd: 1.15 0.7-1.1 cm LA Diam: 3.70 2.7-3.8/3.0-4.0 cm LAIDs Index: 1.72 1.5-2.3 cm/m2 LV Mass: 242.91 67-162/88-224 g LV Mass Index: 112.98 43-95/49-115 g/m2 LVOT Diam: 2.10 3.0+(-)1.3 cm 2D Systolic Function EF 4C: 60.00 >55% EF 2C: 60.60 >55% EF BiP: 58.90 >55% Mitral Valve MV Pk E: 0.84 MV PK A: 0.54 MV Decel Time: 231.00 E/A: 1.60 E'Lateral: 16.40 E'Medial: 11.30 E/E' Med: 7.40 E/E' Lat: 5.10 PHT: 68.00 MVA PHT: 3.24 Decel [place]: 3.61 Aortic Valve AoV Pk [place]: 1.45 AoV Mn [place]: 1.00 AoV VTI: 0.32 AoV Pk Grad: 8.00 Aov Mn Grad: 4.00 JOAQUIN Cont.VTI: 2.25 LVOT LVOT Pk [place]: 0.96 LVOT Mn [place]: 0.64 LVOT VTI: 0.21 LVOT Pk Grad: 4.00 LVOT Mn Grad: 2.00 LVOT Diam: 2.10 LVOT Area: 3.46 Diastolic Function MV Pk E: 0.84 MV Pk A: 0.54 E/A: 1.60 E'Medial: 11.30 E/E' Med: 7.40 E' Laterial: 16.40 E/E' Lat: 5.10 Right Ventricle TAPSE (mm): 25.60 TVS' [place]: 13.70 Tricuspid Valve TR Pk [place]: 1.90 TR Pk Grad: 14.00 RA Press: 3.00 RVSP: 17.00 Great Vessels Aorta Sinus of Valsalva: 3.08 2.0-3.5 cm Ao Asc: 2.90 2.1-3.4 cm Updated in Other Vendor System with Status of Final Russell Giron MD electronically signed on 01/28/2022 9:05:02 AM with status of Final
== END ==
LOC: HO.CARD 15:50
PROVIDERS: PCP Nurse Practitioner Family; Visit Provider Nurse Practitioner Family
DX: R01.1 Cardiac murmur, unspecified (principal)
CPT/HCPCS: 93306; Q9957

== ENCOUNTER 2022-07-18 07:31 | Emergency (ER) | payer OTHER, MEDICAID, SELFPAY ==
[2022-07-18 07:39] VITALS: BP 141/77; PULSE 90; RESP 18; TEMP 36.1; O2SAT 97; BMI 45.1
--- NOTE | 2022-07-18 08:33 | ED.GENADULT ---
HPI - General Adult General Chief complaint: Upper Respiratory Symptoms Stated complaint: double ear, sinus and respiratory infection Time Seen by Provider: 07/18/22 08:15 Source: patient Mode of arrival: ambulatory Limitations: no limitations History of Present Illness HPI narrative: 36-year-old female presents to ED for bilateral ear pain, sore throat, and facial pain with slight cough for couple of days. Patient denies any chest pain, shortness of breath, fever, weakness. Patient admits to chills. Patient states no one else at home being sick. Related Data Previous Rx's Medication Instructions Recorded albuterol sulfate 90 mcg/actuation 1 inh inhalation QID PRN shortness 07/14/21 aerosol inhaler of breath or wheezing #8.5 grams prednisone 50 mg tablet 50 mg PO DAILY 6 days #6 tabs 01/25/22 omeprazole 20 mg capsule,delayed 20 mg PO BID 30 days #60 caps 06/08/22 release lorazepam 1 mg tablet 1 mg PO DAILY 30 days #30 tabs 07/13/22 amoxicillin 875 mg-potassium 1 tab PO Q12H 10 days #20 tabs 07/18/22 clavulanate 125 mg tablet fluticasone propionate 50 2 spray intranasal DAILY 7 days 07/18/22 mcg/actuation nasal #16 grams spray,suspension naproxen 500 mg tablet 500 mg PO BID PRN pain 10 days #20 07/18/22 tabs Allergies Allergy/AdvReac Type Severity Reaction Status Date / Time Sulfa (Sulfonamide Allergy Unknown hives Verified 07/18/22 07:43 Antibiotics) sulfamethoxazole Allergy Unknown HIVES Verified 07/18/22 07:43 [From BACTRIM] trimethoprim [From BACTRIM] Allergy Unknown HIVES Verified 07/18/22 07:43 Review of Systems Review of Systems: Bilateral ear pain, sore throat, sinus facial tenderness, cough Yes all other systems are reviewed and are negative [facility] Past Medical History Medical History Anemia History of anemia History of PCOS Panic attack PTSD (post-traumatic stress disorder) Surgical History History of myringotomy History of tonsillectomy Family History Family History Father Acute [place] CVD (cardiovascular disease) Mother HTN (hypertension) Diabetes mellitus Depression Maternal Grandmother Lung cancer Paternal Grandmother Brain aneurysm CVD (cardiovascular disease) Social History Social History Housing: Apartment Alcohol intake: current Alcohol intake frequency: a few times a month Patient Tobacco Use Status: Former Tobacco user Quit Date: quit 8 years ago Smoked in Last 30 Days: No e-Cigarette/Vaping Use: Never Used Second Hand Smoke Exposure: Yes Substance Use Type: Marijuana Substance Use Frequency: Daily Advance Directives: No Advance Directives Information Provided: Yes service: No Current occupational status: employed Current occupation: [employer] Current occupational exposures/hazards: No Cognitive needs: No Hearing needs: No Vision needs: No Physical Exam ED Vital Signs: Vital Signs - 24 hr 07/18/22 07:39 07/18/22 09:31 Temperature 97 F 97.6 F Pulse Rate 90 81 Respiratory Rate 18 16 Blood Pressure 141/77 H 123/80 Pulse Oximetry 97 98 Oxygen Delivery Method Room Air Room Air BMI result Body Mass Index 45.1 Const General: cooperative, healthy appearing, comfortable, no acute distress, well developed, alert, awake and Physically active Orientation/consciousness: oriented to person, oriented to place, oriented to time and patient oriented x3 HENMT Head: Yes normal to inspection, Yes No palpable skull fracture present, Yes normocephalic, Yes atraumatic and No abrasion Ears: hearing grossly normal bilaterally, external ears normal, mastoids normal, no periauricular adenopathy and TM abnormal erythematous on the right and on the left Face and sinus: Yes sinuses nontender (maxillary and frontal) Throat: Yes posterior oropharynx normal, Yes tonsils normal and Yes uvula midline Eyes General: appearance normal, both eyes and all related structures Neck Neck: Yes normal visual inspection, Yes full ROM, Yes no lymphadenopathy, Yes no meningeal signs, Yes trachea midline, Yes supple, No anterior neck swelling and No tender Chest Chest palpation & inspection: normal inspection of the chest and normal palpation of entire chest wall Resp Effort & Inspection: normal respiratory effort and able to speak in complete sentences Auscultation: clear to auscultation bilaterally Cardio Jugular venous distension: no JVD Heart sounds: S1 normal heart sound present and S2 normal heart sound present GI Inspection: Yes normal to inspection and No abdominal wall ecchymosis Palpation (GI): Soft to palpation, not firm, nontender, no guarding and not rigid General: No CVA tenderness Back/Spine/Pelvis Back: No CVA tenderness and No back tenderness Skin General skin exam: no rashes or lesions noted and elasticity normal Neuro General: oriented to person, oriented to place, oriented to time, patient oriented x3, gait normal, tone normal, moves all extremities, Normal light touch and pain sensation, no meningeal signs, no focal motor deficits, CN's II-XI intact bilaterally and normal sensation to monofilament Extrem General: Yes normal to inspection and Yes full ROM Psych Appearance: grossly normal, well kempt and not disheveled Course Course Course Narrative: SARs ordered. Strep test ordered. Patient well-appearing. Reevaluation(s) Reevaluation #1: COVID, influenza, RSV, and strep came back negative. Patient will be treated as otitis media/sinusitis. Patient discharged with antibiotics. Time: 21:14 Medical Decision Making Medical Decision Making [facility] Narrative: 36-year-old female presents ED for sore throat, bilateral ear pain, sinus facial pain, and slight cough couple of days. No one else at home is sick. Patient denies any chest pain or shortness of breath. Patient well-appearing Differential Diagnosis Differential Diagnoses: The differential diagnosis associated with the presentation includes ( COVID, influenza, RSV, head call, sinusitis, otitis media, tonsillitis,) Lab Data [facility] Lab Attestation statement: I reviewed the patient's lab results. Labs: Lab Results 07/18/22 07/18/22 Range/Units 07:54 08:29 Influenza Type A (PCR) NEGATIVE (Negative) Influenza Type B (PCR) NEGATIVE (Negative) RSV RNA Qual (PCR) NEGATIVE (Negative) SARS-CoV-2 RNA (RT-PCR) NEGATIVE (Negative) S. pyogenes GrpA ANTON Negative (Negative) Prescription Management I considered prescription management with: Pain Medication and Antibiotic Discharge Plan Discharge Clinical Impression: Sinusitis, Otitis media Patient Disposition: Home, Self-Care Instructions: Sinusitis (ED), Ear Infection (ED) Additional Instructions: You're COVID, influenza, RSV, and strep test came back negative. You will be discharged with antibiotics for ear infection and sinusitis. Return to the ED immediately for any chest pain cough shortness of breath, weakness, dizziness, coughing up blood, tractable fever, ear discharge, nasal discharge, or any other concerning symptoms. Please follow-up with primary care provider. Prescriptions: New amoxicillin-pot clavulanate 875-125 mg tablet 1 tab PO Q12H 10 Days Qty: 20 0RF naproxen 500 mg tablet 500 mg PO BID PRN (Reason: pain) 10 Days Qty: 20 0RF fluticasone propionate 50 mcg/actuation spray,suspension 2 spray intranasal DAILY 7 Days Qty: 16 0RF Rx Instructions: administer into each nostril No Action prednisone 50 mg tablet 50 mg PO DAILY 6 Days Qty: 6 0RF omeprazole 20 mg capsule,delayed release(DR/EC) 20 mg PO BID 30 Days Qty: 60 3RF lorazepam 1 mg tablet 1 mg PO DAILY 30 Days Qty: 30 2RF albuterol sulfate 90 mcg/actuation HFA aerosol inhaler 1 inh inhalation QID PRN (Reason: shortness of breath or wheezing) Qty: 8.5 2RF Stand Alone Forms: Work/School Release Interventions: ED Discharge Assessment Last Done: 07/18/22 09:37 Discharge Date/Time: 07/18/22 09:40 Print Language: Bulgarian
[2022-07-18 08:36] LABS: Influenza A PCR NEGATIVE (Negative); Influenza B PCR NEGATIVE (Negative); Resp Syncy Virus RNA Qual PCR NEGATIVE (Negative); SARS COV2 PCR INHOUSE NEGATIVE (Negative)
[2022-07-18 08:52] LABS: IDNOW Serial# 6674DD1D; Strep A Nucleic Acid Negative (Negative)
[2022-07-18 09:31] VITALS: BP 123/80; PULSE 81; RESP 16; TEMP 36.4; O2SAT 98
== END 2022-07-18 09:40 | disposition home or self-care (01) ==
PROVIDERS: Physician Assistant; Emergency Provider Student in an Organized Health Care Education/Training Program; PCP Nurse Practitioner Family
DX: J32.9 Chronic sinusitis, unspecified (principal); H66.93 Otitis media, unspecified, bilateral; Z20.822 Contact with and (suspected) exposure to COVID-19; Z20.828 Contact with and (suspected) exposure to other viral communicable diseases
CPT/HCPCS: 0241U; 36415; 87651; 99283; 99284

== ENCOUNTER 2022-08-18 06:55 | Outpatient (REF) | payer OTHER, SELFPAY ==
[2022-08-18 11:30] LABS: Appearance Urine Turbid; Color Urine Yellow; Glucose Urine UA >=1000 mg/dL (Negative); Leukocyte Esterase Urine Negative (Negative); Nitrite Urine Negative (Negative); PH 5.5 (5.0-9.0); Specific Gravity - Urine >= 1.030 (1.005-1.025); UMIC TRIGGER UACC YES; Urine Blood Negative (Negative); Urine Ketones Negative (Negative); Urine Protein Trace mg/dL (Neg-Trace)
[2022-08-18 11:35] LABS: Bacteria Urine None Seen (None Seen); Hyaline Casts Urine 0-2 /LPF (0-2); RBC Urine 0-2 /HPF (0-2); WBC Urine 0-5 /HPF (0-5)
[2022-08-18 11:44] LABS: MANUAL DIFF FLAG NO
[2022-08-18 12:03] LABS: Alanine Aminotransferase 32 U/L (0-31); Albumin Level 4.1 g/dL (3.5-5.0); Alkaline Phosphatase 145 U/L (39-117); Anion Gap 12 (12-20); Aspartate Amino Transferase 20 U/L (5-31); Bilirubin Total 0.3 mg/dL (0.0-1.0); Blood Urea Nitrogen 12 mg/dL (9-16); Calcium 8.9 mg/dL (8.4-10.2); Carbon Dioxide 25 mmol/L (22-29); Chloride 105 mmol/L (96-108); Cholesterol 182 mg/dL; Estimated Glomerular Filt Rate > 60; Glucose Fasting 189 mg/dL (60-99); HDL Cholesterol 38 mg/dL; Iron 66 mcg/dL (30-160); LDL Cholesterol Calculated 96 mg/dl; Percent Iron Saturation 18 % (15-50); Potassium 4.3 mmol/L (3.3-5.1); Sodium 138 mmol/L (135-145); Total Iron Binding Capacity 367 mcg/dL (228-428); Total Protein 6.7 g/dL (6.5-8.0); Triglycerides 244 mg/dL; Unsaturated Iron Binding 301 ug/dL
[2022-08-18 12:07] LABS: Basophils Percent Auto 0.4 % (0-2); Eosinophils Absolute Auto 0.2 X10*3/uL (0.0-0.4); Eosinophils Percent Auto 2.5 % (0-4); Hemoglobin 13.3 g/dl (12.0-16.0); Imm Gran Abs Auto 0.02 X10*3/uL (0.00-0.03); Imm Gran Pct Auto 0.3 % (0.0-0.4); Immature Retic Fraction 12.7 % (3.0-15.9); Lymphocytes Percent Auto 27.8 % (20-40); Mean Corpuscular HGB Conc 33.3 g/dl (31.0-35.0); Mean Corpuscular Volume 84.2 fL (80.0-98.0); Mean Platelet Volume 9.1 fL (9.4-12.3); Monocytes Absolute Auto 0.5 X10*3/uL (0.1-1.2); Monocytes Percent Auto 6.6 % (2-11); Neutrophils Absolute Auto 4.4 x10*3/uL (2.0-8.3); Neutrophils Percent Auto 62.4 % (45-73); Platelet Count 364 X10*3/uL (160-400); Red Blood Count 4.75 X10*6/uL (4.20-5.50); Red Cell Distribution Width 13.8 % (11.0-16.0); Retic HGB Equivalent 33.7 pg (30.0-35.0); Reticulocyte Percent 1.6 % (0.5-1.8); Reticulocytes Absolute 0.075 X10*6/uL (0.026-0.095); White Blood Count 7.1 X10*3/uL (4.8-10.8)
[2022-08-18 12:36] LABS: Ferritin 33 ng/mL (10-122); Folate 7.5 ng/mL (> or = 4.0); TSH reflex Free T4 3.72 uIU/mL (0.32-4.0); Vitamin B12 477 pg/mL (200-900)
== END 2022-08-18 06:56 | disposition home or self-care (01) ==
LOC: HO.HMGCLDS 06:55
PROVIDERS: PCP Nurse Practitioner Family; Visit Provider Nurse Practitioner Family
DX: Z00.00 Encounter for general adult medical examination without abnormal findings (principal); D64.9 Anemia, unspecified; E78.5 Hyperlipidemia, unspecified
CPT/HCPCS: 36415; 80053; 80061; 81001; 82607; 82728; 82746; 83540; 84443; 85025; 85045

== ENCOUNTER 2022-09-30 15:54 | Outpatient (REF) | payer OTHER, SELFPAY ==
[2022-09-30 17:06] LABS: Estimated Average Glucose 157 mg/dL; Hemoglobin A1c % 7.1 %
[2022-09-30 17:51] LABS: Creatinine Urine 173.37 mg/dL; Gamma Glutamyl Transpeptidase 50 U/L (7-33); Microalbum/Creatinine Ratio Ur 9.2 ug/mg cr
[2022-10-08 06:08] LABS: Alk.Phos Iso. Macrohepatic 0 % (<=0); Alk.Phos Isoenzymes Bone 33 % (28-66); Alk.Phos Isoenzymes Intest 13 % (1-24); Alk.Phos Isoenzymes Liver 54 % (25-69); Alk.Phos Isoenzymes Placental 0 % (<=0); Alk.Phos Isoenzymes Total 102 U/L (31-125)
== END 2022-09-30 15:55 | disposition home or self-care (01) ==
LOC: HO.LAB 15:54
PROVIDERS: PCP Nurse Practitioner Family; Visit Provider Nurse Practitioner Family
DX: E11.9 Type 2 diabetes mellitus without complications (principal); R74.8 Abnormal levels of other serum enzymes
CPT/HCPCS: 36415; 82043; 82977; 83036; 84080

== ENCOUNTER 2022-10-28 14:06 | Outpatient (REF) | payer OTHER, SELFPAY ==
--- NOTE | ~2022-10-28 | XR_ITS ---
EXAMINATION: XR CERVICAL SPINE CLINICAL INFORMATION: Cervical radiculopathy. COMPARISON: None available. TECHNIQUE: 3 views of the cervical spine were obtained. FINDINGS: Moderate disc degenerative changes are present at C5-C7. There is mild reversal of the normal cervical lordosis, centered at C5-C6. No fracture or subluxation is seen. Vertebral body heights appear maintained. No lytic or sclerotic bony lesion is seen. The prevertebral soft tissues appear unremarkable. XR/XR cervical spine 3V IMPRESSION: Degenerative change.
== END 2022-10-28 14:07 | disposition home or self-care (01) ==
LOC: HO.HMGCX 14:06
PROVIDERS: PCP Nurse Practitioner Family; Visit Provider Physician Assistant Medical
DX: M54.12 Radiculopathy, cervical region (principal)
CPT/HCPCS: 72040

== ENCOUNTER 2022-12-22 08:25 | Outpatient (AMB) | payer OTHER, SELFPAY ==
--- NOTE | 2022-12-22 08:31 | MHC.PC.OV ---
Vital Signs 12/22/22 08:33 Height 5 ft 3 in Weight 244 lb 4 oz BMI 43.3 BP 128/72 Blood Pressure Location Rt brachial Position Sitting Pulse 66 Pulse Source Pulse Oximeter Pulse Oximetry (%) 98 Oxygen Delivery Method Room Air Intake Visit Reasons: Med increase follow up/ discuss ssri Allergies Sulfa (Sulfonamide Antibiotics) Allergy (Unknown, Verified 12/22/22 08:51) hives sulfamethoxazole [From BACTRIM] Allergy (Unknown, Verified 12/22/22 08:51) HIVES trimethoprim [From BACTRIM] Allergy (Unknown, Verified 12/22/22 08:51) HIVES lisinopril Allergy (Mild, Uncoded 12/22/22 08:51) Cough Tobacco use date assessed: 12/22/22 Dental Screening Dental Screen Date: 12/22/22 Did you have a dental visit in the last 12 months?: Yes Did you have a dental problem in the last 6 months where you did not have access to dental care?: No Was dental information given to patient?: Patient has dentist HPI Med increase follow up/ discuss ssri HPI Details Pt is a diabetic, on an ARB and a statin. A1C in office today is 7.0. Microalbumin is up to date. Denies polyuria, polydipsia, and neuropathy. Pt denies any signs and symptoms of hypoglycemia and does know how to correct it. Pt reports that her blood sugar this morning was 104. Will increase metformin from 500mg daily to 500mg bid. She will schedule her own eye exam. recent steroids and going for a cortisone injection today, educated steroid use and hyperglycemia. [facility] Medical History Anemia History of anemia History of PCOS Panic attack PTSD (post-traumatic stress disorder) Surgical History History of myringotomy History of tonsillectomy Family History Father Acute [place] CVD (cardiovascular disease) Mental health disorder Mother HTN (hypertension) Diabetes mellitus Depression Mental health disorder Maternal Grandmother Lung cancer Mental health disorder Paternal Grandmother Brain aneurysm CVD (cardiovascular disease) Mental health disorder Maternal Grandfather Mental health disorder Paternal Grandfather Mental health disorder Sister Mental health disorder Social History Housing: Apartment Alcohol intake: current Alcohol intake frequency: a few times a month Patient Tobacco Use Status: Former Tobacco user Quit Date: quit 8 years ago e-Cigarette/Vaping Use: Never Used Second Hand Smoke Exposure: Yes Substance Use Type: Marijuana service: No Current occupational status: employed Current occupation: [employer] Current occupational exposures/hazards: No Cognitive needs: No Hearing needs: No Vision needs: No Questionnaire Thrive Questionnaire Date Thrive assessed: 10/06/21 RORO-7 AMB Questionnaire RORO-7 Date RORO - 7 assessed: 10/06/21 Source: Developed by Drs. Onur Connors, Kimberly Oseguera, Juan Manuel Lara and colleagues, with an educational leah from [employer] Review of Systems Const Reports as per HPI Physical exam (Primary Care) Vital Signs: Last Vital Signs Pulse 66 12/22/22 08:33 BP 128/72 12/22/22 08:33 Pulse Ox 98 12/22/22 08:33 Oxygen Delivery Method Room Air 12/22/22 08:33 BMI result Body Mass Index 43.3 Tobacco/Smoking Status: Tobacco use Status Tobacco use date assessed 12/22/22 12/22/22 08:36 Patient Tobacco Use Status Former Tobacco user 12/22/22 08:33 e-Cigarette/Vaping Use Never Used 12/22/22 08:33 Thrive Assessment: Date of Thrive Assessment Date Thrive assessed 10/06/21 12/22/22 08:33 Const General: cooperative Nutritional Appearance: obese morbidly obese Orientation/consciousness: patient oriented x3 Resp Effort & Inspection: normal respiratory effort Auscultation: clear to auscultation bilaterally Cardio Rate: regular rate Rhythm: regular rhythm Heart sounds: S1 normal heart sound present, S2 normal heart sound present and Murmur heart sound present systolic (faint) Neuro General: patient oriented x3 Extrem Other: bilat feet: + sensation with use of monofilament Psych Appearance: grossly normal Mental Status: mental status grossly normal Speech and movement: Normal speech and movement present Affect: normal affect Attitude: cooperative Thought process: Normal thought process present Thought content: Normal thought content present Insight: Good insight present (Psych) Judgement: Good judgement present (Psych) Results AMB Hemoglobin A1c AMB Hemoglobin A1c 7.0 % Last Edit by Cyndee Suresh CMA on 12/22/22 09:03 Results Reviewed Results Reviewed: Laboratory Last Values Hgb A1c (Clinic) 7.0 % (4.0-6.0) H 12/22/22 09:01 Assessment and Plan Assessment & Plan (1) Newly diagnosed diabetes: Code(s): E11.9 - Type 2 diabetes mellitus without complications Plan The patient agreed to the use of a medical office assistant for this encounter. Scribed for REINALDO Denney by Jamia Yao medical office assistant, on 12/22/2022 at 08:40 EST. Orders: Orders Comprehensive [place]. Panel Fast Today E11.9 - Type 2 diabetes mellitus without complications TSH reflex Free T4 Today E11.9 - Type 2 diabetes mellitus without complications Complete Blood Count Auto Diff Today E11.9 - Type 2 diabetes mellitus without complications UA CC w/rflx Micro + Cult Today E11.9 - Type 2 diabetes mellitus without complications Lipid Panel Today E11.9 - Type 2 diabetes mellitus without complications AMB Hemoglobin A1c Today E11.9 - Type 2 diabetes mellitus without complications Coding Level of Care Code Est Pt Level 3 (40788) Diagnoses Newly diagnosed diabetes E11.9
[2022-12-22 08:33] VITALS: BP 128/72; PULSE 66; O2SAT 98; BMI 43.3
== END 2022-12-22 08:59 | disposition home or self-care (01) ==
PROVIDERS: Visit Provider Nurse Practitioner Family
DX: E11.9 Type 2 diabetes mellitus without complications (principal)
CPT/HCPCS: 83036; 99213

== ENCOUNTER 2023-02-14 14:47 | Outpatient (AMB) | payer OTHER, SELFPAY ==
--- NOTE | 2023-02-14 14:53 | MHC.PC.OV ---
Vital Signs 02/14/23 14:54 Height 5 ft 3 in Weight 235 lb 8 oz BMI 41.7 BP 122/80 Blood Pressure Location Rt brachial Position Sitting Pulse 79 Pulse Source Pulse Oximeter Pulse Oximetry (%) 99 Oxygen Delivery Method Room Air Intake Visit Reasons: 6 month follow up Allergies Sulfa (Sulfonamide Antibiotics) Allergy (Unknown, Verified 02/14/23 15:09) hives sulfamethoxazole [From BACTRIM] Allergy (Unknown, Verified 02/14/23 15:09) HIVES trimethoprim [From BACTRIM] Allergy (Unknown, Verified 02/14/23 15:09) HIVES lisinopril Allergy (Mild, Uncoded 02/14/23 15:09) Cough Medication List - Last Reconciled 02/14/23 by REINALDO Carey albuterol sulfate 90 mcg/actuation 1 inh inhalation QID PRN blood sugar diagnostic (FreeStyle Lite Strips) test blood sugar once a day blood-glucose meter (FreeStyle Lite Meter kit) As directed famotidine 20 mg PO BEDTIME lancets (FreeStyle Lancets) Test blood sugar once a day lorazepam 1.5 mg (1.5 x 1 mg) PO DAILY 30 days losartan 25 mg PO DAILY metformin 500 mg PO DAILY omeprazole 20 mg PO BID 30 days rosuvastatin 5 mg PO DAILY sertraline 50 mg PO DAILY 30 days Tobacco use date assessed: 02/14/23 Dental Screening Dental Screen Date: 02/14/23 Did you have a dental visit in the last 12 months?: Yes Did you have a dental problem in the last 6 months where you did not have access to dental care?: No Was dental information given to patient?: Patient has dentist HPI 6 month follow up HPI Details Pt is a diabetic, on an ARB and a statin. Last A1C was 7.0, microalbumin is up to date. Denies polyuria, polydipsia, and neuropathy. Pt denies any signs and symptoms of hypoglycemia and does know how to correct it. Pt reports that her blood sugar has been ranging from 90s-mid 150s. Pt has been working on her diet and losing weight. [facility] Medical History Anemia History of anemia History of PCOS Panic attack PTSD (post-traumatic stress disorder) Surgical History History of myringotomy History of tonsillectomy Family History Father Acute [place] CVD (cardiovascular disease) Mental health disorder Mother HTN (hypertension) Diabetes mellitus Depression Mental health disorder Maternal Grandmother Lung cancer Mental health disorder Paternal Grandmother Brain aneurysm CVD (cardiovascular disease) Mental health disorder Maternal Grandfather Mental health disorder Paternal Grandfather Mental health disorder Sister Mental health disorder Social History Housing: Apartment Alcohol intake: current Alcohol intake frequency: a few times a month Patient Tobacco Use Status: Former Tobacco user Quit Date: quit 8 years ago e-Cigarette/Vaping Use: Never Used Second Hand Smoke Exposure: Yes Substance Use Type: Marijuana service: No Current occupational status: employed Current occupation: [employer] Current occupational exposures/hazards: No Cognitive needs: No Hearing needs: No Vision needs: No Questionnaire Thrive Questionnaire Date Thrive assessed: 10/06/21 RORO-7 AMB Questionnaire RORO-7 Date RORO - 7 assessed: 10/06/21 Source: Developed by Drs. Onur Connors, Kimberly Oseguera, Juan Manuel Lara and colleagues, with an educational laeh from [employer]. Review of Systems Const Reports as per HPI Physical exam (Primary Care) Vital Signs: Last Vital Signs Pulse 79 02/14/23 14:54 BP 122/80 02/14/23 14:54 Pulse Ox 99 02/14/23 14:54 Oxygen Delivery Method Room Air 02/14/23 14:54 BMI result Body Mass Index 41.7 Tobacco/Smoking Status: Tobacco use Status Tobacco use date assessed 02/14/23 02/14/23 14:57 Patient Tobacco Use Status Former Tobacco user 02/14/23 14:53 e-Cigarette/Vaping Use Never Used 02/14/23 14:53 Thrive Assessment: Date of Thrive Assessment Date Thrive assessed 10/06/21 02/14/23 14:53 Const General: cooperative Nutritional Appearance: obese morbidly obese Orientation/consciousness: patient oriented x3 Resp Effort & Inspection: normal respiratory effort Auscultation: clear to auscultation bilaterally Cardio Rate: regular rate Rhythm: regular rhythm Heart sounds: S1 normal heart sound present and S2 normal heart sound present Neuro General: patient oriented x3 Extrem Other: bilat feet: + sensation with use of monofilament, slight lack of sensation to right foot Psych Appearance: grossly normal Mental Status: mental status grossly normal Speech and movement: Normal speech and movement present Affect: normal affect Attitude: cooperative Thought process: Normal thought process present Thought content: Normal thought content present Insight: Good insight present (Psych) Judgement: Good judgement present (Psych) Assessment and Plan Assessment & Plan (1) Newly diagnosed diabetes: Code(s): E11.9 - Type 2 diabetes mellitus without complications Plan: Labs ordered Plan The patient agreed to the use of a coroner/medical examiner for this encounter. Scribed for REINALDO Denney by Jamia Yao coroner/medical examiner, on 02/14/2023 at 15:10 EST Orders: Orders Comprehensive [place]. Panel Fast Today E11.9 - Type 2 diabetes mellitus without complications Hemoglobin A1c Today E11.9 - Type 2 diabetes mellitus without complications Complete Blood Count Auto Diff Today E11.9 - Type 2 diabetes mellitus without complications TSH reflex Free T4 Today E11.9 - Type 2 diabetes mellitus without complications UA CC w/rflx Micro + Cult Today E11.9 - Type 2 diabetes mellitus without complications Lipid Panel Today E11.9 - Type 2 diabetes mellitus without complications Coding Level of Care Code Est Pt Level 3 (47634) Diagnoses Newly diagnosed diabetes E11.9
[2023-02-14 14:54] VITALS: BP 122/80; PULSE 79; O2SAT 99; BMI 41.7
== END 2023-02-14 15:21 | disposition home or self-care (01) ==
PROVIDERS: Visit Provider Nurse Practitioner Family
DX: E11.9 Type 2 diabetes mellitus without complications (principal)
CPT/HCPCS: 99213

== ENCOUNTER 2023-03-16 08:22 | Emergency (ER) | payer OTHER, SELFPAY ==
[2023-03-16 08:38] VITALS: BP 142/86; PULSE 86; RESP 18; TEMP 36.8; O2SAT 97; BMI 35.9
--- NOTE | 2023-03-16 08:41 | PC.NURSE ---
Patient reports dry non-productive cough for the the last few months, reports x3 days ago started with productive cough and sinus pressure/pain. reports sob and headache but denies chest pain
--- NOTE | 2023-03-16 08:56 | ED.GENADULT ---
HPI - General Adult General Chief complaint: General Medical Stated complaint: Sinus infection Time Seen by Provider: 03/16/23 08:38 Source: patient Mode of arrival: ambulatory History of Present Illness HPI narrative: 37-year-old female, has history of diabetes, presents with 2 days of coughing that is now become slightly productive of yellowish sputum but denies any fevers or chills, does report headache and significant bilateral sinus pressure denies cigarette smoking but does endorse smoking of marijuana. Related Data Previous Rx's Medication Instructions Recorded albuterol sulfate 90 mcg/actuation 1 inh inhalation QID PRN shortness 07/14/21 aerosol inhaler of breath or wheezing #8.5 grams blood sugar diagnostic (FreeStyle #100 ea 09/30/22 Lite Strips) blood-glucose meter (FreeStyle #1 ea 09/30/22 Lite Meter kit) lancets 28 gauge (FreeStyle #100 ea 09/30/22 Lancets) metformin 500 mg tablet 500 mg PO DAILY #90 tabs 11/21/22 famotidine 20 mg tablet 20 mg PO BEDTIME #90 tabs 01/11/23 rosuvastatin 5 mg tablet 5 mg PO DAILY #90 tabs 01/13/23 sertraline 50 mg tablet 50 mg PO DAILY 30 days #30 tabs 01/30/23 lorazepam 1 mg tablet 1.5 mg (1.5 x 1 mg) PO DAILY 30 02/15/23 days #45 tabs losartan 25 mg tablet 25 mg PO DAILY #90 tabs 02/15/23 omeprazole 20 mg capsule,delayed 20 mg PO BID 30 days #60 caps 02/15/23 release amoxicillin 875 mg-potassium 1 tab PO BID 3 days #6 tabs 03/16/23 clavulanate 125 mg tablet Allergies Allergy/AdvReac Type Severity Reaction Status Date / Time Sulfa (Sulfonamide Allergy Unknown hives Verified 02/14/23 15:09 Antibiotics) sulfamethoxazole Allergy Unknown HIVES Verified 02/14/23 15:09 [From BACTRIM] trimethoprim [From BACTRIM] Allergy Unknown HIVES Verified 02/14/23 15:09 lisinopril Allergy Mild Cough Uncoded 02/14/23 15:09 Review of Systems Review of Systems: Pertinent positives and negatives as stated in HPI [facility] Past Medical History Source: nursing notes reviewed Medical History PTSD (post-traumatic stress disorder) Anemia Panic attack History of PCOS History of anemia Surgical History History of myringotomy History of tonsillectomy Family History Family History Father Acute [place] CVD (cardiovascular disease) Mental health disorder Mother HTN (hypertension) Diabetes mellitus Depression Mental health disorder Maternal Grandmother Lung cancer Mental health disorder Paternal Grandmother Brain aneurysm CVD (cardiovascular disease) Mental health disorder Maternal Grandfather Mental health disorder Paternal Grandfather Mental health disorder Sister Mental health disorder Social History Social History Housing: Apartment Alcohol intake: current Alcohol intake frequency: holidays/special occasions only Patient Tobacco Use Status: Former Tobacco user Quit Date: quit 8 years ago Smoked in Last 30 Days: No e-Cigarette/Vaping Use: Never Used Second Hand Smoke Exposure: Yes Use of substances other than those prescribed or required for medical reasons: Yes Substance Use Type: Marijuana Advance Directives: No Advance Directives Information Provided: Yes service: No Current occupational status: employed Current occupation: [employer] Current occupational exposures/hazards: No Cognitive needs: No Hearing needs: No Vision needs: No Physical Exam ED Vital Signs: Vital Signs - 24 hr 03/16/23 08:38 Temperature 98.2 F Pulse Rate 86 Respiratory Rate 18 Blood Pressure 142/86 H Pulse Oximetry 97 Oxygen Delivery Method Room Air BMI result Body Mass Index 35.9 VITAL SIGNS: Reviewed. GENERAL: Well developed, well nourished, in no acute distress. HEAD: Normocephalic/atraumatic EYES: PERRLA, EOMI EARS: Ext canals without abnormality, TMs non-bulging and non-erythematous NOSE: Bilateral boggy turbinates no purulence noted, tenderness to palpation across bilateral maxilla sinus OROPHARYNX: no oral lesions noted, posterior pharynx clear but hyperemic without noted tonsillar enlargement/erythema/exudates NECK: Supple, no adenopathy LUNGS: Normal breath sounds. No adventitious sounds or accessory muscle use. SpO2<97> CARDIOVASCULAR: Regular rate and rhythm without noted murmurs ABDOMEN: Soft, non-tender, non-distended with bowel sounds. MUSCULOSKELETAL: No tenderness, deformities, or effusions noted on gross inspection. EXTREMITIES: No cyanosis, clubbing or edema. SKIN: Inspection of the skin reveals no rashes NEUROLOGIC: Alert and oriented x 4. Strength and sensation to light touch were grossly intact x 4. Medications Administered Discontinued Medications Generic Name Dose Route Start Last Admin Trade Name Edwin PRN Reason Stop Dose Admin Acetaminophen 975 mg 03/16/23 08:55 03/16/23 09:02 Acetaminophen 325 Mg Tablet PO 03/16/23 08:56 975 mg ONCE ONE Administration Ibuprofen 400 mg 03/16/23 08:55 03/16/23 09:02 Ibuprofen 400 Mg Tablet PO 03/16/23 08:56 400 mg ONCE ONE Administration Medical Decision Making Medical Decision Making MDM Narrative: 37-year-old female with history and clinical presentation, DDX: Viral illness, doubt pneumonia, likely sinusitis but feel that this is most consistent with viral sinusitis. My interpretation is that patient a viral illness with viral bronchitis and sinusitis, viral testing is negative for evidence of influenza/RSV/COVID. Patient given combination analgesics. I recommended that patient initiate the use of Flonase for symptom relief as well as [id number] decongestants. In addition, recommended cessation of any form of smoke inhalation. Although I would not normally prescribe antibiotics given patient's diagnosis diabetes will cover with short course of antibiotics for the bronchitis. Differential Diagnosis Differential Diagnoses: The differential diagnosis associated with the presentation includes Please see the discussion above Admission/Observation Consideration of admission/observation: Escalation of care including admission/observation considered Please see the discussion above Lab Data MDM Lab Attestation statement: I reviewed the patient's lab results. Please see the discussion above Labs: Lab Results 03/16/23 Range/Units 08:48 Influenza Type A (PCR) NEGATIVE (Negative) Influenza Type B (PCR) NEGATIVE (Negative) RSV RNA Qual (PCR) NEGATIVE (Negative) SARS-CoV-2 RNA (RT-PCR) NEGATIVE (Negative) Discharge Plan Discharge Clinical Impression: Bronchitis Patient Disposition: Home, Self-Care Instructions: Acute Bronchitis (ED) Additional Instructions: 1. [id number] Tylenol/ibuprofen for pain/headache/temperatures greater than 100.4 symptoms. Also recommend [id number] Flonase. 2. Please complete the course of antibiotics as prescribed. 3. Follow-up with your primary care provider. Return to the ER for any worsening symptoms. Prescriptions: New amoxicillin-pot clavulanate 875-125 mg tablet 1 tab PO BID 3 Days Qty: 6 0RF No Action (DME) blood-glucose meter [FreeStyle Lite Meter] Kit See Rx Instructions .Route Qty: 1 0RF Rx Instructions: As directed (DME) FreeStyle Lite Strips Strip See Rx Instructions .Route Qty: 100 1RF Rx Instructions: test blood sugar once a day (DME) lancets [FreeStyle Lancets] 28 gauge misc See Rx Instructions .Route Qty: 100 1RF Rx Instructions: Test blood sugar once a day metformin 500 mg tablet 500 mg PO DAILY Qty: 90 1RF famotidine 20 mg tablet 20 mg PO BEDTIME Qty: 90 0RF rosuvastatin 5 mg tablet 5 mg PO DAILY Qty: 90 1RF sertraline 50 mg tablet 50 mg PO DAILY 30 Days Qty: 30 3RF lorazepam 1 mg tablet 1.5 mg PO DAILY 30 Days Qty: 45 2RF omeprazole 20 mg capsule,delayed release(DR/EC) 20 mg PO BID 30 Days Qty: 60 3RF losartan 25 mg tablet 25 mg PO DAILY Qty: 90 0RF albuterol sulfate 90 mcg/actuation HFA aerosol inhaler 1 inh inhalation QID PRN (Reason: shortness of breath or wheezing) Qty: 8.5 2RF Referrals: John Wright FNP-[facility] [Primary Care Provider] -
[2023-03-16] MEDS: Acetaminophen 325 MG TABLET 975 MG PO (09:02)
[2023-03-16] MEDS: Ibuprofen 400 MG TABLET PO (09:02)
[2023-03-16 09:41] LABS: Influenza A PCR NEGATIVE (Negative); Influenza B PCR NEGATIVE (Negative); Resp Syncy Virus RNA Qual PCR NEGATIVE (Negative); SARS COV2 PCR INHOUSE NEGATIVE (Negative)
[2023-03-16 09:55] LABS: Glucose, Whole Blood 129 mg/dL (60-115)
== END 2023-03-16 10:24 | disposition home or self-care (01) ==
PROVIDERS: Emergency Provider Student in an Organized Health Care Education/Training Program; PCP Nurse Practitioner Family
DX: J40 Bronchitis, not specified as acute or chronic (principal); Z20.822 Contact with and (suspected) exposure to COVID-19; Z20.828 Contact with and (suspected) exposure to other viral communicable diseases; R05.9 Cough, unspecified; R51.9 Headache, unspecified; F12.90 Cannabis use, unspecified, uncomplicated; E11.8 Type 2 diabetes mellitus with unspecified complications; Z79.84 Long term (current) use of oral hypoglycemic drugs; Z79.899 Other long term (current) drug therapy
CPT/HCPCS: 0241U; 82947; 99283; 99284

== ENCOUNTER 2023-05-24 07:10 | Outpatient (REF) | payer OTHER, SELFPAY ==
[2023-05-24 11:26] LABS: MANUAL DIFF FLAG NO
[2023-05-24 11:33] LABS: Appearance Urine Turbid; Color Urine Yellow; Glucose Urine UA Negative (Negative); Leukocyte Esterase Urine Negative (Negative); Nitrite Urine Negative (Negative); PH 5.5 (5.0-9.0); Specific Gravity - Urine 1.025 (1.005-1.025); Urine Blood Negative (Negative); Urine Ketones Negative (Negative); Urine Protein Negative (Neg-Trace)
[2023-05-24 11:34] LABS: Basophils Percent Auto 0.3 % (0-2); Eosinophils Absolute Auto 0.3 X10*3/uL (0.0-0.4); Hematocrit 42.4 % (37.0-47.0); Hemoglobin 13.7 g/dl (12.0-16.0); Imm Gran Abs Auto 0.03 X10*3/uL (0.00-0.03); Imm Gran Pct Auto 0.3 % (0.0-0.4); Lymphocytes Absolute Auto 2.1 X10*3/uL (1.2-4.9); Mean Corpuscular HGB Conc 32.3 g/dl (31.0-35.0); Mean Corpuscular Hemoglobin 27.3 pg (27.0-33.0); Mean Corpuscular Volume 84.6 fL (80.0-98.0); Mean Platelet Volume 9.3 fL (9.4-12.3); Monocytes Absolute Auto 0.6 X10*3/uL (0.1-1.2); Monocytes Percent Auto 5.9 % (2-11); Neutrophils Absolute Auto 6.4 x10*3/uL (2.0-8.3); Neutrophils Percent Auto 68.5 % (45-73); Platelet Count 349 X10*3/uL (160-400); Red Blood Count 5.01 X10*6/uL (4.20-5.50); Red Cell Distribution Width 14.6 % (11.0-16.0); White Blood Count 9.4 X10*3/uL (4.8-10.8)
[2023-05-24 11:42] LABS: Estimated Average Glucose 128 mg/dL; Hemoglobin A1C 151.1304 umol/L; Hemoglobin A1c % 6.1 % (<6.0)
[2023-05-24 12:09] LABS: Alanine Aminotransferase 20 U/L (0-31); Albumin Level 4.3 g/dL (3.5-5.0); Alkaline Phosphatase 97 U/L (39-117); Anion Gap 11 (12-20); Aspartate Amino Transferase 20 U/L (5-31); Bilirubin Total 0.5 mg/dL (0.0-1.0); Blood Urea Nitrogen 14 mg/dL (9-16); Calcium 9.3 mg/dL (8.4-10.2); Carbon Dioxide 24 mmol/L (22-29); Chloride 105 mmol/L (96-108); Cholesterol 134 mg/dL (<200); Estimated Glomerular Filt Rate > 60; Glucose Fasting 135 mg/dL (60-99); HDL Cholesterol 45 mg/dL (>40); LDL Cholesterol Calculated 62 mg/dL (<100); Potassium 4.1 mmol/L (3.3-5.1); Sodium 136 mmol/L (135-145); TSH reflex Free T4 1.97 uIU/mL (0.32-4.0); Total Protein 7.3 g/dL (6.5-8.0); Triglycerides 138 mg/dL (<150)
== END 2023-05-24 07:11 | disposition home or self-care (01) ==
LOC: HO.HMGCLDS 07:10
PROVIDERS: PCP Nurse Practitioner Family; Visit Provider Nurse Practitioner Family
DX: E11.9 Type 2 diabetes mellitus without complications (principal)
CPT/HCPCS: 36415; 80053; 80061; 81003; 83036; 84443; 85025

== ENCOUNTER 2023-06-01 13:11 | Outpatient (AMB) | payer OTHER, SELFPAY ==
--- NOTE | 2023-06-01 13:15 | A.OFFPC_ITS ---
Vital Signs 06/01/23 13:16 Height 5 ft 5 in Weight 231 lb 6 oz BMI 38.5 BP 112/78 Blood Pressure Location Rt brachial Position Sitting Pulse 74 Pulse Source Pulse Oximeter Pulse Oximetry (%) 98 Oxygen Delivery Method Room Air Intake Visit Reasons: 3 month follow up Intake Note: Pt is here to follow up for her lab results Allergies Sulfa (Sulfonamide Antibiotics) Allergy (Unknown, Verified 06/01/23 13:20) hives sulfamethoxazole [From BACTRIM] Allergy (Unknown, Verified 06/01/23 13:20) HIVES trimethoprim [From BACTRIM] Allergy (Unknown, Verified 06/01/23 13:20) HIVES lisinopril Allergy (Mild, Uncoded 06/01/23 13:20) Cough Medication List - Last Reconciled 06/01/23 by REINALDO Carey albuterol sulfate 90 mcg/actuation 1 inh inhalation QID PRN blood sugar diagnostic (FreeStyle Lite Strips) test blood sugar once a day blood-glucose meter (FreeStyle Lite Meter kit) As directed lancets (FreeStyle Lancets) Test blood sugar once a day lorazepam 1.5 mg (1.5 x 1 mg) PO DAILY 30 days omeprazole 20 mg PO BID 30 days rosuvastatin 5 mg PO DAILY sertraline 50 mg PO DAILY 30 days Tobacco use date assessed: 06/01/23 Dental Screening Dental Screen Date: 06/01/23 Did you have a dental visit in the last 12 months?: Yes Did you have a dental problem in the last 6 months where you did not have access to dental care?: No Was dental information given to patient?: Patient has dentist HPI 3 month follow up HPI Details Pt is a diabetic, on a statin. Last A1C was 6.1, microalbumin is up to date. Denies polyuria, polydipsia, and neuropathy. Pt denies any signs and symptoms of hypoglycemia and does know how to correct it. Eye exam is up to date. [facility] Medical History PTSD (post-traumatic stress disorder) Anemia Panic attack History of PCOS History of anemia Surgical History History of myringotomy History of tonsillectomy Family History Father Acute [place] CVD (cardiovascular disease) Mental health disorder Mother HTN (hypertension) Diabetes mellitus Depression Mental health disorder Maternal Grandmother Lung cancer Mental health disorder Paternal Grandmother Brain aneurysm CVD (cardiovascular disease) Mental health disorder Maternal Grandfather Mental health disorder Paternal Grandfather Mental health disorder Sister Mental health disorder Social History Housing: Apartment Alcohol intake: current Alcohol intake frequency: holidays/special occasions only Patient Tobacco Use Status: Former Tobacco user Quit Date: quit 8 years ago e-Cigarette/Vaping Use: Never Used Second Hand Smoke Exposure: Yes Substance Use Type: Marijuana service: No Current occupational status: employed Current occupation: [employer] Current occupational exposures/hazards: No Cognitive needs: No Hearing needs: No Vision needs: No Questionnaire PHQ-9 Over the last 2 weeks, how often have you been bothered by any of the following problems? 1. Little interest or pleasure in doing things: not at all 2. Feeling down, depressed, or hopeless: not at all 3. Trouble falling or staying asleep, or sleeping too much: not at all 4. Feeling tired or having little energy: nearly every day 5. Poor appetite or overeating: several days 6. Feeling bad about yourself - or that you are a failure or have let yourself or your family down: several days 7. Trouble concentrating on things, such as reading the newspaper or watching television: nearly every day 8. Moving or speaking so slowly that other people could have noticed. Or the opposite - being so fidgety or restless that you have been moving around a lot more than usual: more than half the days 9. Thoughts that you would be better off or of hurting yourself in some way: not at all Total score: 10 Depression Screening Interpretation: Positive Depression Screening Follow-up: Existing condition and In treatment Depression Screening Done: Yes 92615 - PHQ-9 Billing: Yes Source: Developed by Drs. Onur Connors, Kimberly Oseguera, Juan Manuel Lara and colleagues, with an educational leah from [employer]. Thrive Questionnaire Date Thrive assessed: 06/01/23 I am a: Patient What is your living situation today?: I have a steady place to live Within the past 12 months, did the food you bought not last and you didn't have the money to get more?: Never true Within the past 12 months, did you worry whether your food would run out before you got money to buy more?: Never true Do you have trouble paying for medicines?: No Do you have trouble getting transportation to medical appointments?: No Do you have trouble paying your heating and electricity bill?: No Do you have trouble taking care of your child, family member or friend?: No Do you have trouble with day-to-day activities such as bathing, preparing meals, shopping, managing finances, etc.?: No Are you currently unemployed and looking for a job?: No Are you interested in more education?: No THRIVE Score: 0 AUDIT C Alcohol Use Questionnaire (AUDIT-C) 1. How often do you have a drink containing alcohol?: Monthly or less 2. How many drinks containing alcohol do you have on a typical day when you are drinking?: 3 or 4 3. How often do you have six or more drinks on one occasion?: Never Total Score: 2 Score Reviewed/Action Taken: Yes RORO-7 AMB Questionnaire RORO-7 Date RORO - 7 assessed: 06/01/23 Feeling nervous, anxious, or on edge: 1 = Several days Not being able to stop or control worryin = Several days Worrying too much about different things: 1 = Several days Trouble relaxin = More than half the days Being so restless that it is hard to sit still: 2 = More than half the days Becoming easily annoyed or irritable: 2 = More than half the days Feeling afraid as if something awful might happen: 1 = Several days Total RORO-7 score (0-4 normal; 5-9 mild; 10-14 moderate; 15-21 severe): 10 Source: Developed by Drs. Onur Connors, Kimberly Oseguera, Juan Manuel Lara and colleagues, with an educational leah from [employer]. RORO-7 Assessment Billing RORO-7 Assessment Tool: RORO-7 Assessment 54393 Review of Systems Const Reports as per HPI Physical exam (Primary Care) Vital Signs: Last Vital Signs Pulse 74 06/01/23 13:16 BP 112/78 06/01/23 13:16 Pulse Ox 98 06/01/23 13:16 Oxygen Delivery Method Room Air 06/01/23 13:16 BMI result Body Mass Index 38.5 Tobacco/Smoking Status: Tobacco use Status Tobacco use date assessed 06/01/23 06/01/23 13:25 Patient Tobacco Use Status Former Tobacco user 06/01/23 13:16 e-Cigarette/Vaping Use Never Used 06/01/23 13:16 PHQ-9: PHQ-9 Score PHQ-9: Total score 10 06/01/23 13:32 Depression Screening Interpretation: Positive Depression Screening Follow-up: Existing condition and In treatment Thrive Assessment: Date of Thrive Assessment Date Thrive assessed 06/01/23 06/01/23 13:32 Const General: cooperative Nutritional Appearance: obese Orientation/consciousness: patient oriented x3 Resp Effort & Inspection: normal respiratory effort Auscultation: clear to auscultation bilaterally Cardio Other: very faint systolic murmur Rate: regular rate Rhythm: regular rhythm Heart sounds: S1 normal heart sound present, S2 normal heart sound present and Murmur heart sound present systolic (very faint murmur) Neuro General: patient oriented x3 Extrem Other: bilat feet: + sensation with use of monofilament Right lower extremity: no edema Left lower extremity: no edema Psych Appearance: grossly normal Mental Status: mental status grossly normal Speech and movement: Normal speech and movement present Affect: normal affect Attitude: cooperative Thought process: Normal thought process present Thought content: Normal thought content present Insight: Good insight present (Psych) Judgement: Good judgement present (Psych) Assessment and Plan Assessment & Plan (1) Diabetes: Code(s): E11.9 - Type 2 diabetes mellitus without complications Plan: Labs already performed Plan The patient agreed to the use of a medical administrative specialist for this encounter. Scribed for REINALDO Denney by Jamia Yao medical administrative specialist, on 06/01/2023 at 13:35 EST. Coding Level of Care Code Est Pt Level 3 (80276) Diagnoses Diabetes E11.9 Additional Codes RORO-7 Assessment Billing - RORO-7 Assessment Tool: RORO-7 Assessment 12545 ([id number])
[2023-06-01 13:16] VITALS: BP 112/78; PULSE 74; O2SAT 98; BMI 38.5
== END 2023-06-01 16:53 | disposition home or self-care (01) ==
PROVIDERS: PCP Nurse Practitioner Family; Visit Provider Nurse Practitioner Family
DX: E11.9 Type 2 diabetes mellitus without complications (principal)
CPT/HCPCS: 99213

== ENCOUNTER 2023-06-28 13:44 | Outpatient (REF) | payer OTHER, SELFPAY ==
--- NOTE | ~2023-06-28 | XR_ITS ---
EXAMINATION: XR PELVIS CLINICAL INFORMATION: Sacroiliitis. COMPARISON: None available. TECHNIQUE: AP view of the pelvis. FINDINGS: No fracture. Hip joint spaces are maintained. Alignment is anatomic. Sacroiliac joints and pubic symphysis are normal. No abnormal soft tissue calcifications. XR/XR pelvis 1-2V IMPRESSION: Normal pelvis.
--- NOTE | ~2023-06-28 | XR_ITS ---
EXAMINATION: XR LUMBOSACRAL SPINE WITH OBLIQUES CLINICAL INFORMATION: Sacroiliitis. COMPARISON: Radiographs dated 10/06/2021. TECHNIQUE: AP, both oblique, and lateral views of the lumbar spine. Lateral view of the lumbosacral junction. FINDINGS: The vertebral bodies and posterior elements are normal. The disc spaces are preserved and the vertebral alignment is normal. The paraspinal soft tissues are normal. The sacroiliac joints are symmetric and well-maintained. The acetabular joint spaces are well-maintained. There are right upper quadrant surgical clips. XR/XR lumbar spine 4V min IMPRESSION: Unremarkable examination.
== END 2023-06-28 13:45 | disposition home or self-care (01) ==
LOC: HO.HMGCX 13:44
PROVIDERS: PCP Nurse Practitioner Family; Visit Provider Student in an Organized Health Care Education/Training Program
DX: M46.1 Sacroiliitis, not elsewhere classified (principal)
CPT/HCPCS: 72110; 72170

== ENCOUNTER 2023-07-11 09:32 | Emergency (ER) | payer OTHER, SELFPAY ==
[2023-07-11 09:35] VITALS: BP 138/70; PULSE 66; RESP 16; TEMP 36.5; O2SAT 96; BMI 40.7
--- NOTE | 2023-07-11 09:38 | ED.BACK ---
HPI - Back Pain/Injury General Chief Complaint: Back Pain/Injury Stated Complaint: Low Back Spasms Injury 07/10/23 Time Seen by Provider: 07/11/23 09:38 Source: patient Mode of arrival: ambulatory Limitations: no limitations History of Present Illness HPI Narrative: Patient is a 37-year-old female presenting to the emergency department with complaint lower back pain, worse on the right since yesterday. She states that she was throwing out bags of trash at work and after lifting a bag, noted that the whole bottle was filled with dirt and it caused the bag to be heavier than she expected. Since that time has had lower back pain. Reports some radiation to right buttock. Denies any saddle anesthesia or bowel or bladder incontinence. Denies fevers, IV drug use. Denies fall or other trauma. MD elicited complaint: back pain Pertinent past history: prior back pain Onset (ago): hour(s) Timing: constant Severity: severe Similar Symptoms Previously: Yes Quality: aching Location: right lower back Radiation: buttocks (right) Exacerbating factors: walking Context: while lifting and turning/twisting Associated symptoms: denies other symptoms Related Data Previous Rx's Medication Instructions Recorded blood sugar diagnostic (FreeStyle #100 ea 09/30/22 Lite Strips) blood-glucose meter (FreeStyle #1 ea 09/30/22 Lite Meter kit) lancets 28 gauge (FreeStyle #100 ea 09/30/22 Lancets) rosuvastatin 5 mg tablet 5 mg PO DAILY #90 tabs 01/13/23 sertraline 50 mg tablet 50 mg PO DAILY 30 days #30 tabs 01/30/23 lorazepam 1 mg tablet 1.5 mg (1.5 x 1 mg) PO DAILY 30 02/15/23 days #45 tabs omeprazole 20 mg capsule,delayed 20 mg PO BID 30 days #60 caps 02/15/23 release albuterol sulfate 90 mcg/actuation 1 inh inhalation QID PRN shortness 03/29/23 aerosol inhaler of breath or wheezing #8.5 grams cyclobenzaprine 5 mg tablet 5 mg PO TID PRN muscle spasm #10 07/11/23 tabs lidocaine 5 % topical patch 1 patch topical DAILY #15 ea 07/11/23 Allergies Allergy/AdvReac Type Severity Reaction Status Date / Time Sulfa (Sulfonamide Allergy Unknown hives Verified 06/01/23 13:20 Antibiotics) sulfamethoxazole Allergy Unknown HIVES Verified 06/01/23 13:20 [From BACTRIM] trimethoprim [From BACTRIM] Allergy Unknown HIVES Verified 06/01/23 13:20 lisinopril Allergy Mild Cough Uncoded 06/01/23 13:20 Review of Systems Review of Systems: As per HPI. Yes all other systems are reviewed and are negative Constitutional: Constitutional: Reports as per HPI PMFSH Past Medical History Medical History PTSD (post-traumatic stress disorder) Anemia Panic attack History of PCOS History of anemia Surgical History History of myringotomy History of tonsillectomy Family History Family History Father Acute [place] CVD (cardiovascular disease) Mental health disorder Mother HTN (hypertension) Diabetes mellitus Depression Mental health disorder Maternal Grandmother Lung cancer Mental health disorder Paternal Grandmother Brain aneurysm CVD (cardiovascular disease) Mental health disorder Maternal Grandfather Mental health disorder Paternal Grandfather Mental health disorder Sister Mental health disorder Social History Social History Housing: Apartment Alcohol intake: current Alcohol intake frequency: holidays/special occasions only Patient Tobacco Use Status: Former Tobacco user Quit Date: quit 8 years ago e-Cigarette/Vaping Use: Never Used Second Hand Smoke Exposure: Yes Substance Use Type: Marijuana Advance Directives: No service: No Current occupational status: employed Current occupation: [employer] Current occupational exposures/hazards: No Cognitive needs: No Hearing needs: No Vision needs: No Physical Exam Vital Signs: Vital Signs: Last Vital Signs Temp 97.7 F 07/11/23 09:35 Pulse 66 07/11/23 09:35 Resp 16 07/11/23 09:35 BP 138/70 07/11/23 09:35 Pulse Ox 96 07/11/23 09:35 O2 Del Method Room Air 07/11/23 09:35 BMI result Body Mass Index 40.7 Vital signs have been reviewed and appear to be correct. Blood pressure normal. Heart rate normal. Respiratory rate normal. Temperature normal. Oxygen saturation normal. Const: General: cooperative, healthy appearing and no acute distress Orientation/consciousness: oriented to person, oriented to place, oriented to time and patient oriented x3 Limitations: no limitations HEENT: Head: Yes normocephalic and Yes atraumatic Ears: external ears normal General nose exam: Normal external nose present Face and sinus: Yes face symmetric Mouth: oropharynx normal and moist mucous membranes Throat: Yes uvula midline Eyes: Pupils: Equal, round and reactive pupils present Neck: Neck: Yes normal visual inspection, Yes no meningeal signs and Yes supple Resp: Effort & Inspection: normal respiratory effort and able to speak in complete sentences Auscultation: clear to auscultation bilaterally Cardio: Rate: regular rate Rhythm: regular rhythm Heart sounds: S1 normal heart sound present and S2 normal heart sound present GI: Palpation (GI): Soft to palpation and nontender Auscultation: normoactive bowel sounds : General: Yes no CVA tenderness Back/Spine/Pelvis: Back: no CVA tenderness Thoracic/Lumbar Spine: thoracic and lumbar spine normal to inspection, Thoracic/lumbar spine scar(s) (right lumbar keloid scar), thoraco-lumbar ROM normal, straight leg raise negative bilaterally, pain with thoraco-lumbar ROM, paraspinal muscle tenderness on the right in the mid lumbar and in the lower lumbar, No thoracic spinal tenderness and No lumbar spinal tenderness Sacroiliac joints: bilaterally nontender Skin: General skin exam: elasticity normal and turgor normal Neuro: General: oriented to person, oriented to place, oriented to time, patient oriented x3, gait normal, tone normal, moves all extremities, Normal light touch and pain sensation, no meningeal signs, no focal motor deficits, CN's II-XI intact bilaterally and deep tendon reflexes 2+ bilaterally Cranial nerves: Yes Equal, round and reactive pupils present Cognition (Neuro): normal cognition Motor exam (neuro): Normal motor muscle tone present throughout and Motor abnormalities not present Sensory Exam: Normal double simultaneous stimulation for sensation Extrem: General: Yes normal to inspection, Yes full ROM, Yes capillary refill normal, Yes no pedal edema and Yes no calf tenderness Psych: Mental Status: mental status grossly normal Affect: normal affect Thought process: Normal thought process present Medications Administered Discontinued Medications Generic Name Dose Route Start Last Admin Trade Name Freq PRN Reason Stop Dose Admin Cyclobenzaprine HCl 10 mg 07/11/23 09:58 07/11/23 10:07 Cyclobenzaprine Hcl 10 Mg Tablet PO 07/11/23 09:59 10 mg ONCE ONE Administration Ketorolac Tromethamine 30 mg 07/11/23 09:58 07/11/23 10:08 Ketorolac Tromethamine 30 Mg/Ml Vial IM 07/11/23 09:59 30 mg ONCE ONE Administration Medical Decision Making Medical Decision Making [facility] Narrative: Patient is a 37-year-old female presenting to the emergency department with complaint lower back pain, worse on the right since yesterday. On exam patient is awake, A+Ox3, VS WNL, afebrile, normal neurological exam without focal deficits, physical exam findings as above. Given reported symptoms and physical exam findings, initial differential includes lumbar strain, lumbar radiculopathy. Do not suspect degenerative disc disease, disc herniation, spinal stenosis, spondylosis. Unlikely vertebral fracture as patient denies trauma. Do not suspect malignancy/mass, SEA, cauda equina/cord compression. Treated with ketorolac and cyclobenzaprine in the ED as she was driven to ED by her . Will send prescriptions for cyclobenzaprine and lidocaine patches. Instructed patient to follow-up with her primary care provider. Return precautions discussed at bedside. Patient verbalized understanding of and agreement with plan. Differential Diagnosis Differential Diagnoses: The differential diagnosis associated with the presentation includes As per MDM. Lab Data Labs: Lab Results 07/11/23 Range/Units 09:48 Urine Test NEGATIVE (NEGATIVE) External Record Review External record reviewed: Inpatient record, Office record and Outpatient record Prescription Management I considered prescription management with: Pain Medication and Other Discharge Plan Discharge Clinical Impression: Strain of lumbar region Patient Disposition: Home, Self-Care Instructions: Low Back Strain (ED), Acute Low Back Pain (ED), Lower Back Exercises (ED) Additional Instructions: You were evaluated in the emergency department today for back pain. Your evaluation did not show signs of medical conditions requiring emergent intervention at this time. We recommended that you use ibuprofen or Tylenol per package directions every 6 hours as needed for pain. If necessary, you can alternate these medications so that you take one medication every 3 hours. For instance, at noon take ibuprofen, then at 3:00 p.m. take Tylenol, then at 6:00 p.m. take ibuprofen. You have been prescribed a muscle relaxer which you may take every 8 hours as needed for spasms. You have been prescribed 5% topical lidocaine patches which you can wear for up to 12 hours in a 24 hour period. Do not apply heat directly over the patches. Please schedule an appointment for follow-up with your primary care physician this week for further evaluation of your symptoms. Return to the emergency department if you experience worsening back pain, difficulty walking, fevers, numbness, tingling, incontinence, groin numbness or tingling, or any other concerning symptoms. Prescriptions: New cyclobenzaprine 5 mg tablet 5 mg PO TID PRN (Reason: muscle spasm) Qty: 10 0RF lidocaine 5 % adhesive patch,medicated 1 patch topical DAILY Qty: 15 0RF Rx Instructions: leave on most painful area for up to 12 hrs No Action (DME) blood-glucose meter [FreeStyle Lite Meter] Kit See Rx Instructions .Route Qty: 1 0RF Rx Instructions: As directed (DME) FreeStyle Lite Strips Strip See Rx Instructions .Route Qty: 100 1RF Rx Instructions: test blood sugar once a day (DME) lancets [FreeStyle Lancets] 28 gauge misc See Rx Instructions .Route Qty: 100 1RF Rx Instructions: Test blood sugar once a day rosuvastatin 5 mg tablet 5 mg PO DAILY Qty: 90 1RF sertraline 50 mg tablet 50 mg PO DAILY 30 Days Qty: 30 3RF lorazepam 1 mg tablet 1.5 mg PO DAILY 30 Days Qty: 45 2RF omeprazole 20 mg capsule,delayed release(DR/EC) 20 mg PO BID 30 Days Qty: 60 3RF albuterol sulfate 90 mcg/actuation HFA aerosol inhaler 1 inh inhalation QID PRN (Reason: shortness of breath or wheezing) Qty: 8.5 2RF
[2023-07-11 09:56] LABS: UPreg QC Valid YES; Urine Pregnancy NEGATIVE (NEGATIVE)
[2023-07-11] MEDS: Cyclobenzaprine HCl 10 MG TABLET PO (10:07)
[2023-07-11] MEDS: Ketorolac Tromethamine 30 MG/ML VIAL IM (10:08)
== END 2023-07-11 10:31 | disposition home or self-care (01) ==
PROVIDERS: Registered Nurse Emergency; Emergency Provider Student in an Organized Health Care Education/Training Program; PCP Nurse Practitioner Family
DX: S39.012A Strain of muscle, fascia and tendon of lower back, initial encounter (principal); X50.0XXA Overexertion from strenuous movement or load, initial encounter; X50.9XXA Other and unspecified overexertion or strenuous movements or postures, initial encounter; Y93.9 Activity, unspecified; Y92.9 Unspecified place or not applicable; Y99.0 Civilian activity done for income or pay
CPT/HCPCS: 81025; 96372; 99283; 99284; J1885

== ENCOUNTER 2023-07-13 08:55 | Outpatient (AMB) | payer OTHER, SELFPAY ==
--- NOTE | 2023-07-13 10:03 | AM.OFFWIN_ITS ---
Intake Vital Signs 07/13/23 10:05 Weight 240 lb BP 120/76 Blood Pressure Location Lt brachial Position Sitting Pulse 56 Pulse Source Pulse Oximeter Pulse Oximetry (%) 98 Oxygen Delivery Method Room Air Intake Visit Reasons: EP WC Lower back pain Intake Note: Patient here for lower back pain while at work 4 days ago, she states she was lifting bags of what she thought was leaves which ended up having wet soil at the bottom of the bag and was just lifting them regularly when she pulled something Patient Tobacco Use Status: Former Tobacco user Quit Date: quit 8 years ago Allergies Sulfa (Sulfonamide Antibiotics) Allergy (Unknown, Verified 07/13/23 10:07) hives sulfamethoxazole [From BACTRIM] Allergy (Unknown, Verified 07/13/23 10:07) HIVES trimethoprim [From BACTRIM] Allergy (Unknown, Verified 07/13/23 10:07) HIVES lisinopril Allergy (Mild, Uncoded 07/13/23 10:07) Cough Do you need a note to return to daycare/school/sports/work: Yes HPI HPI Comments History of Present Illness Details 37 y/o female patient who presents to [facility] with c/o lower back x 4 days. This is a chronic issue. She lifted heavy bags of Trash at work, and aggravated the pain. Pt was seen at [facility] [place] 07/11/23 for similar problem. She was give NSAIDs, Acetaminophen, Lido Patch and Muscle relaxant. She reports no improvement. Denies Bowel or urinary problems. Pt is also receiving PT for her back. [facility] Medical History PTSD (post-traumatic stress disorder) Anemia Panic attack History of PCOS History of anemia Surgical History History of myringotomy History of tonsillectomy Family History Father Acute [place] CVD (cardiovascular disease) Mental health disorder Mother HTN (hypertension) Diabetes mellitus Depression Mental health disorder Maternal Grandmother Lung cancer Mental health disorder Paternal Grandmother Brain aneurysm CVD (cardiovascular disease) Mental health disorder Maternal Grandfather Mental health disorder Paternal Grandfather Mental health disorder Sister Mental health disorder Social History Housing: Apartment Alcohol intake: current Alcohol intake frequency: holidays/special occasions only Patient Tobacco Use Status: Former Tobacco user Quit Date: quit 8 years ago e-Cigarette/Vaping Use: Never Used Second Hand Smoke Exposure: Yes Substance Use Type: Marijuana service: No Current occupational status: employed Current occupation: [employer] Current occupational exposures/hazards: No Cognitive needs: No Hearing needs: No Vision needs: No Review of Systems Const All systems reviewed & are unremarkable except as noted in HPI and below Physical Exam Vital Signs: Last Vital Signs Pulse 56 07/13/23 10:05 BP 120/76 07/13/23 10:05 Pulse Ox 98 07/13/23 10:05 Oxygen Delivery Method Room Air 07/13/23 10:05 Const General: comfortable and no acute distress Nutritional Appearance: obese Orientation/consciousness: patient oriented x3 Back/Spine/Pelvis Thoracic/Lumbar Spine: thoracic and lumbar spine normal to inspection, thoraco- lumbar ROM limited (Due to pain) and lumbar spinal tenderness Neuro General: patient oriented x3 and gait normal Psych Appearance: grossly normal Affect: normal affect Attitude: cooperative Assessment & Plan Assessment & Plan (1) Spondylosis without myelopathy or radiculopathy, lumbar region: Code(s): M47.816 - Spondylosis without myelopathy or radiculopathy, lumbar region Plan: - Continue on current medications as directed. - D/C Flexeril and start taking Carisoprodol - Rest back - Continue with PT Medications: New carisoprodol 350 mg PO BEDTIME 20 tabs 0RF M47.816 - Spondylosis without myelopathy or radiculopathy, lumbar region Discontinued cyclobenzaprine Discontinued Reason: No Longer Medically Relevant 5 mg PO TID PRN 10 tabs 0RF muscle spasm Coding Level of Care Code Est Pt Level 3 (62956) Diagnoses Spondylosis without myelopathy or radiculopathy, lumbar region M47.816 Time Spent (min) 15
[2023-07-13 10:05] VITALS: BP 120/76; PULSE 56; O2SAT 98
== END 2023-07-13 10:44 | disposition home or self-care (01) ==
PROVIDERS: PCP Nurse Practitioner Family; Visit Provider Nurse Practitioner Family
DX: M47.816 Spondylosis without myelopathy or radiculopathy, lumbar region (principal)
CPT/HCPCS: 99213

== ENCOUNTER 2023-07-19 14:30 | Outpatient (AMB) | payer OTHER, SELFPAY ==
--- NOTE | 2023-07-19 14:31 | AM.OFFWIN_ITS ---
Intake Vital Signs 07/19/23 14:33 Height 5 ft 3 in Weight 236 lb BMI 41.8 BP 104/64 Blood Pressure Location Rt brachial Position Sitting Pulse 84 Pulse Source Pulse Oximeter Temp 97.6 F Temp Source Temporal Artery Scan Pulse Oximetry (%) 99 Oxygen Delivery Method Room Air Intake Visit Reasons: EP WC lower back/still not better Intake Note: Pt is here c/o lower back pain not getting better. Pt states she is feeling numbness on her lower back. Patient Tobacco Use Status: Former Tobacco user Quit Date: quit 8 years ago Allergies Sulfa (Sulfonamide Antibiotics) Allergy (Unknown, Verified 07/19/23 14:34) hives sulfamethoxazole [From BACTRIM] Allergy (Unknown, Verified 07/19/23 14:34) HIVES trimethoprim [From BACTRIM] Allergy (Unknown, Verified 07/19/23 14:34) HIVES lisinopril Allergy (Mild, Uncoded 07/19/23 14:34) Cough Do you need a note to return to daycare/school/sports/work: Yes HPI HPI Comments History of Present Illness Details 37 y/o female patient who presents to [facility] with c/o back pain, numbness and tingling. Pt was seen by me last week for similar issue. Pt reports prescribed Tx not working. Pt was injured at work, and now her case has been presented for Work-danilo comp. Pt was informed that for her to qualify for the services she will need to be out of work for 5 days. Pt asking for work/excuse note for today. [facility] Medical History PTSD (post-traumatic stress disorder) Anemia Panic attack History of PCOS History of anemia Surgical History History of myringotomy History of tonsillectomy Family History Father Acute [place] CVD (cardiovascular disease) Mental health disorder Mother HTN (hypertension) Diabetes mellitus Depression Mental health disorder Maternal Grandmother Lung cancer Mental health disorder Paternal Grandmother Brain aneurysm CVD (cardiovascular disease) Mental health disorder Maternal Grandfather Mental health disorder Paternal Grandfather Mental health disorder Sister Mental health disorder Social History Housing: Apartment Alcohol intake: current Alcohol intake frequency: holidays/special occasions only Patient Tobacco Use Status: Former Tobacco user Quit Date: quit 8 years ago e-Cigarette/Vaping Use: Never Used Second Hand Smoke Exposure: Yes Substance Use Type: Marijuana service: No Current occupational status: employed Current occupation: [employer] Current occupational exposures/hazards: No Cognitive needs: No Hearing needs: No Vision needs: No Review of Systems Const All systems reviewed & are unremarkable except as noted in HPI and below Physical Exam Vital Signs: BMI result Body Mass Index 41.8 Const General: comfortable and no acute distress Orientation/consciousness: oriented to person, oriented to place and oriented to time Neuro General: oriented to person, oriented to place, oriented to time and moves all extremities Gait exam (Neuro): Normal gait present Psych Speech and movement: Normal speech and movement present Assessment & Plan Assessment & Plan (1) Spondylosis without myelopathy or radiculopathy, lumbar region: Code(s): M47.816 - Spondylosis without myelopathy or radiculopathy, lumbar region Plan: - Provided Pt with a work note today. - She is already in Physical therapy at [facility] [facility]. They need another Referral that will cover the work-danilo comp claim. - Informed Pt to f/u with her employer regarding issue. Coding Level of Care Code Est Pt Level 2 (59738) Diagnoses Spondylosis without myelopathy or radiculopathy, lumbar region M47.816 Time Spent (min) 10
[2023-07-19 14:33] VITALS: BP 104/64; PULSE 84; TEMP 36.4; O2SAT 99; BMI 41.8
== END 2023-07-19 14:51 | disposition home or self-care (01) ==
PROVIDERS: PCP Nurse Practitioner Family; Visit Provider Nurse Practitioner Family
DX: M47.816 Spondylosis without myelopathy or radiculopathy, lumbar region (principal); Z04.2 Encounter for examination and observation following work accident
CPT/HCPCS: 99212

== ENCOUNTER 2023-08-08 07:44 | Outpatient (AMB) | payer OTHER, SELFPAY ==
--- NOTE | 2023-08-08 07:15 | MHC.PC.OV ---
Intake Visit Reasons: work comp, back injury Allergies Sulfa (Sulfonamide Antibiotics) Allergy (Unknown, Verified 07/19/23 14:34) hives sulfamethoxazole [From BACTRIM] Allergy (Unknown, Verified 07/19/23 14:34) HIVES trimethoprim [From BACTRIM] Allergy (Unknown, Verified 07/19/23 14:34) HIVES lisinopril Allergy (Mild, Uncoded 07/19/23 14:34) Cough Medication List - Last Reconciled 08/08/23 by LUZ Carey-MAHESH albuterol sulfate 90 mcg/actuation 1 inh inhalation QID PRN blood sugar diagnostic (FreeStyle Lite Strips) test blood sugar once a day blood-glucose meter (FreeStyle Lite Meter kit) As directed carisoprodol 350 mg PO BEDTIME lancets (FreeStyle Lancets) Test blood sugar once a day lidocaine 5% 1 patch topical DAILY lorazepam 1.5 mg (1.5 x 1 mg) PO DAILY 30 days omeprazole 20 mg PO BID 30 days rosuvastatin 5 mg PO DAILY sertraline 50 mg PO DAILY 30 days tramadol 50 mg PO PRN Tobacco use date assessed: 06/01/23 Dental Screening Dental Screen Date: 06/01/23 HPI work comp, back injury HPI Details Pt was seen in the ER on 07/10 c/o lower back pain after injuring her back at work on 07/09. She was given ketorolac and cyclobenzaprine in the ER. Pt was d/c with cyclobenzaprine and lidocaine patches. She was seen in the walk-in on 07/12. Cyclobenzaprine was d/c and she was given carisoprodol. Pt will be going to PT. She reports some ongoing pain with radicular symptoms down her BLE (left>right). Will send prednisone. Pt is currently on light duty. Denies any signs of cauda equina. [facility] Medical History PTSD (post-traumatic stress disorder) Anemia Panic attack History of PCOS History of anemia Surgical History History of myringotomy History of tonsillectomy Family History Father Acute [place] CVD (cardiovascular disease) Mental health disorder Mother HTN (hypertension) Diabetes mellitus Depression Mental health disorder Maternal Grandmother Lung cancer Mental health disorder Paternal Grandmother Brain aneurysm CVD (cardiovascular disease) Mental health disorder Maternal Grandfather Mental health disorder Paternal Grandfather Mental health disorder Sister Mental health disorder Social History Housing: Apartment Alcohol intake: current Alcohol intake frequency: holidays/special occasions only Patient Tobacco Use Status: Former Tobacco user Quit Date: quit 8 years ago e-Cigarette/Vaping Use: Never Used Second Hand Smoke Exposure: Yes Substance Use Type: Marijuana service: No Current occupational status: employed Current occupation: [employer] Current occupational exposures/hazards: No Cognitive needs: No Hearing needs: No Vision needs: No Questionnaire Thrive Questionnaire Date Thrive assessed: 06/01/23 I am a: Patient What is your living situation today?: I have a place to live, but I am worried about losing it in the future Within the past 12 months, did the food you bought not last and you didn't have the money to get more?: Never true Within the past 12 months, did you worry whether your food would run out before you got money to buy more?: Never true Please select the resources that you would like help with: Housing/Group Home THRIVE Score: 1 AUDIT C Alcohol Use Questionnaire (AUDIT-C) 1. How often do you have a drink containing alcohol?: Monthly or less 2. How many drinks containing alcohol do you have on a typical day when you are drinking?: 1 or 2 3. How often do you have six or more drinks on one occasion?: Less than monthly Total Score: 2 RORO-7 AMB Questionnaire RORO-7 Date RORO - 7 assessed: 06/01/23 Feeling nervous, anxious, or on edge: 3 = Nearly every day Not being able to stop or control worryin = Nearly every day Worrying too much about different things: 3 = Nearly every day Trouble relaxin = Nearly every day Being so restless that it is hard to sit still: 3 = Nearly every day Becoming easily annoyed or irritable: 3 = Nearly every day Feeling afraid as if something awful might happen: 3 = Nearly every day Total RORO-7 score (0-4 normal; 5-9 mild; 10-14 moderate; 15-21 severe): 21 Source: Developed by Drs. Onur Connors, Kimberly Oseguera, Juan Manuel Lara and colleagues, with an educational leah from [employer]. Review of Systems Const Reports as per HPI Physical exam (Primary Care) Tobacco/Smoking Status: Tobacco use Status Tobacco use date assessed 06/01/23 08/08/23 07:19 Patient Tobacco Use Status Former Tobacco user 08/08/23 07:19 e-Cigarette/Vaping Use Never Used 08/08/23 07:19 Thrive Assessment: Date of Thrive Assessment Date Thrive assessed 06/01/23 08/08/23 07:19 Const General: cooperative Orientation/consciousness: patient oriented x3 Neuro General: patient oriented x3 Psych Appearance: grossly normal Mental Status: mental status grossly normal Speech and movement: Clear speech present Affect: normal affect Attitude: cooperative Thought process: Normal thought process present Thought content: Normal thought content present Insight: Good insight present (Psych) Judgement: Good judgement present (Psych) Telehealth Telehealth Location of provider rendering services: practice address Location of patient: address on file Patient Identification confirmed using: Name, : Yes Telehealth method: video Patient verbally consented to treatment: Yes Patient verbally consented to billing insurance company: Yes Patient informed of any privacy concerns related to visit: Yes Minutes spent on Phone/Video with Pt.: 10 Assessment and Plan Assessment & Plan (1) Spondylosis without myelopathy or radiculopathy, lumbar region: Code(s): M47.816 - Spondylosis without myelopathy or radiculopathy, lumbar region Plan: start prednisone, start PT Plan The patient agreed to the use of a medical administrative specialist for this encounter. Scribed for REINALDO Denney by Jamia Yao medical administrative specialist, on 08/08/2023 at 07:10 EST. Medications: New prednisone 50 mg PO DAILY 7 tabs 0RF 7 days Refilled lidocaine 5% leave on most painful area for up to 12 hrs 1 patch topical DAILY 15 ea 0RF Coding Level of Care Code Tele Est Pt Level 3 (14244) Diagnoses Spondylosis without myelopathy or radiculopathy, lumbar region M46.135
== END 2023-08-08 08:28 | disposition home or self-care (01) ==
LOC: HO.HMGC 07:44
PROVIDERS: PCP Nurse Practitioner Family; Visit Provider Nurse Practitioner Family
DX: M47.816 Spondylosis without myelopathy or radiculopathy, lumbar region (principal)
CPT/HCPCS: 99213

== ENCOUNTER 2023-11-15 07:05 | Outpatient (AMB) | payer OTHER, SELFPAY ==
--- NOTE | 2023-11-15 07:34 | A.OFFPC_ITS ---
Intake Visit Reasons: ? med increase Allergies Sulfa (Sulfonamide Antibiotics) Allergy (Unknown, Verified 11/15/23 09:02) hives sulfamethoxazole [From BACTRIM] Allergy (Unknown, Verified 11/15/23 09:02) HIVES trimethoprim [From BACTRIM] Allergy (Unknown, Verified 11/15/23 09:02) HIVES lisinopril Allergy (Mild, Uncoded 11/15/23 09:02) Cough Medication List - Last Reconciled 11/15/23 by REINALDO Carey albuterol sulfate 90 mcg/actuation 1 inh inhalation QID PRN blood sugar diagnostic (FreeStyle Lite Strips) test blood sugar once a day blood-glucose meter (FreeStyle Lite Meter kit) As directed carisoprodol 350 mg PO BEDTIME lancets (FreeStyle Lancets) Test blood sugar once a day lidocaine 5% 1 patch topical DAILY lorazepam 1.5 mg (1.5 x 1 mg) PO DAILY 30 days omeprazole 20 mg PO BID 30 days prednisone 50 mg PO DAILY 7 days rosuvastatin 5 mg PO DAILY sertraline 100 mg PO DAILY 30 days tramadol 50 mg PO PRN Tobacco use date assessed: 06/01/23 Dental Screening Dental Screen Date: 06/01/23 HPI ? med increase HPI Details Pt c/o increased depression. She is currently taking sertraline 50mg. She reports that this was working well but it has not been as effective lately. Will increase from 50mg to 100mg. Pt does not see a therapist or a psychiatrist. Denies any SI and HI. [facility] Medical History PTSD (post-traumatic stress disorder) Anemia Panic attack History of PCOS History of anemia Surgical History History of myringotomy History of tonsillectomy Family History Father Acute [place] CVD (cardiovascular disease) Mental health disorder Mother HTN (hypertension) Diabetes mellitus Depression Mental health disorder Maternal Grandmother Lung cancer Mental health disorder Paternal Grandmother Brain aneurysm CVD (cardiovascular disease) Mental health disorder Maternal Grandfather Mental health disorder Paternal Grandfather Mental health disorder Sister Mental health disorder Social History Housing: Apartment Alcohol intake: current Alcohol intake frequency: holidays/special occasions only Patient Tobacco Use Status: Former Tobacco user e-Cigarette/Vaping Use: Never Used Second Hand Smoke Exposure: Yes Substance Use Type: Marijuana service: No Current occupational status: employed Current occupation: [employer] Current occupational exposures/hazards: No Cognitive needs: No Hearing needs: No Vision needs: No Questionnaire Thrive Questionnaire Date Thrive assessed: 06/01/23 RORO-7 AMB Questionnaire RORO-7 Date RORO - 7 assessed: 06/01/23 Source: Developed by Drs. Onur Connors, Kimberly Oseguera, Juan Manuel Lara and colleagues, with an educational leah from [employer]. Review of Systems Const Reports as per HPI Physical exam (Primary Care) Tobacco/Smoking Status: Tobacco use Status Tobacco use date assessed 06/01/23 11/15/23 07:39 Patient Tobacco Use Status Former Tobacco user 11/15/23 07:39 e-Cigarette/Vaping Use Never Used 11/15/23 07:39 Thrive Assessment: Date of Thrive Assessment Date Thrive assessed 06/01/23 11/15/23 07:39 Const General: cooperative Orientation/consciousness: patient oriented x3 Neuro General: patient oriented x3 Psych Appearance: grossly normal Mental Status: mental status grossly normal Speech and movement: Clear speech present Affect: normal affect Attitude: cooperative Thought process: Normal thought process present Thought content: Normal thought content present Insight: Good insight present (Psych) Judgement: Good judgement present (Psych) Telehealth Telehealth Telehealth Platform: [facility] Location of provider rendering services: practice address Location of patient: address on file Patient Identification confirmed using: Name, : Yes Telehealth method: video Patient verbally consented to treatment: Yes Patient verbally consented to billing insurance company: Yes Patient informed of any privacy concerns related to visit: Yes Minutes spent on Phone/Video with Pt.: 5 Assessment and Plan Assessment & Plan (1) Anxiety: Code(s): F41.9 - Anxiety disorder, unspecified (2) Depression: Code(s): F32.A - Depression, unspecified Plan: increased sertraline Plan The patient agreed to the use of a medical assistant dermatology for this encounter. Scribed for LUZ Denney-MAHESH by Jamia Yao medical assistant dermatology, on 11/15/2023 at 07:35 EST. Orders: Orders Microalbumin, Random (w Creat) Today E11.9 - Type 2 diabetes mellitus without complications Medications: Changed From sertraline 50 mg PO DAILY 30 days 30 tabs 3RF To sertraline 100 mg PO DAILY 30 tabs 3RF 30 days Coding Level of Care Code Tele Est Pt Level 3 (61854) Diagnoses Anxiety F41.9 Depression F32.A
== END 2023-11-15 17:17 | disposition home or self-care (01) ==
LOC: HO.HMGC 07:05
PROVIDERS: PCP Nurse Practitioner Family; Visit Provider Nurse Practitioner Family
DX: E11.9 Type 2 diabetes mellitus without complications (principal); F41.9 Anxiety disorder, unspecified; F32.A Depression, unspecified
CPT/HCPCS: 99213

== ENCOUNTER 2023-12-09 08:19 | Outpatient (REF) | payer OTHER, SELFPAY ==
[2023-12-09 11:22] LABS: MANUAL DIFF FLAG NO
[2023-12-09 11:37] LABS: Basophils Percent Auto 0.4 % (0-2); Eosinophils Absolute Auto 0.3 X10*3/uL (0.0-0.4); Hematocrit 41.3 % (37.0-47.0); Hemoglobin 13.5 g/dl (12.0-16.0); Imm Gran Abs Auto 0.03 X10*3/uL (0.00-0.03); Imm Gran Pct Auto 0.4 % (0.0-0.4); Lymphocytes Absolute Auto 1.7 X10*3/uL (1.2-4.9); Lymphocytes Percent Auto 25.4 % (20-40); Mean Corpuscular HGB Conc 32.7 g/dl (31.0-35.0); Mean Corpuscular Hemoglobin 28.9 pg (27.0-33.0); Mean Corpuscular Volume 88.4 fL (80.0-98.0); Mean Platelet Volume 9.3 fL (9.4-12.3); Monocytes Absolute Auto 0.4 X10*3/uL (0.1-1.2); Neutrophils Absolute Auto 4.3 x10*3/uL (2.0-8.3); Neutrophils Percent Auto 63.8 % (45-73); Platelet Count 290 X10*3/uL (160-400); Red Blood Count 4.67 X10*6/uL (4.20-5.50); Red Cell Distribution Width 13.9 % (11.0-16.0); White Blood Count 6.8 X10*3/uL (4.8-10.8)
[2023-12-09 12:01] LABS: Alanine Aminotransferase 17 U/L (0-31); Alkaline Phosphatase 127 U/L (39-117); Anion Gap 12 (12-20); Aspartate Amino Transferase 22 U/L (5-31); Bilirubin Total 0.2 mg/dL (0.0-1.0); Blood Urea Nitrogen 10 mg/dL (9-16); Calcium 8.7 mg/dL (8.4-10.2); Carbon Dioxide 25 mmol/L (22-29); Chloride 106 mmol/L (96-108); Cholesterol 121 mg/dL (<200); Estimated Glomerular Filt Rate > 60; Glucose Fasting 151 mg/dL (60-99); HDL Cholesterol 38 mg/dL (>40); LDL Cholesterol Calculated 35 mg/dL (<100); Potassium 4.1 mmol/L (3.3-5.1); Sodium 139 mmol/L (135-145); Total Protein 6.6 g/dL (6.5-8.0); Triglycerides 243 mg/dL (<150)
[2023-12-09 12:19] LABS: TSH reflex Free T4 2.39 uIU/mL (0.32-4.0)
== END 2023-12-09 08:20 | disposition home or self-care (01) ==
LOC: HO.HMGCLDS 08:19
PROVIDERS: PCP Nurse Practitioner Family; Visit Provider Nurse Practitioner Family
DX: E11.9 Type 2 diabetes mellitus without complications (principal)
CPT/HCPCS: 36415; 80053; 80061; 84443; 85025

== ENCOUNTER 2023-12-13 12:22 | Outpatient (AMB) | payer OTHER, SELFPAY ==
[2023-12-13 12:29] VITALS: BP 110/66; PULSE 71; O2SAT 98; BMI 41.6
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
== END 2023-12-13 13:41 | disposition home or self-care (01) ==
PROVIDERS: PCP Nurse Practitioner Family; Visit Provider Nurse Practitioner Family
DX: Z00.00 Encounter for general adult medical examination without abnormal findings (principal); E11.9 Type 2 diabetes mellitus without complications
CPT/HCPCS: 83036; 99395

== ENCOUNTER 2023-12-23 13:09 | Outpatient (REF) | payer OTHER, SELFPAY ==
[2023-12-28 22:08] LABS: Alk.Phos Iso. Macrohepatic 0 % (<=0); Alk.Phos Isoenzymes Bone 17 % (28-66); Alk.Phos Isoenzymes Intest 36 % (1-24); Alk.Phos Isoenzymes Liver 47 % (25-69); Alk.Phos Isoenzymes Placental 0 % (<=0); Alk.Phos Isoenzymes Total 101 U/L (31-125)
== END 2023-12-23 13:10 | disposition home or self-care (01) ==
LOC: HO.HMGCLDS 13:09
PROVIDERS: PCP Nurse Practitioner Family; Visit Provider Nurse Practitioner Family
DX: R74.8 Abnormal levels of other serum enzymes (principal)
CPT/HCPCS: 36415; 84080

== ENCOUNTER 2024-02-09 08:23 | Outpatient (AMB) | payer BC, SELFPAY ==
--- NOTE | 2024-02-09 08:31 | MHC.OFFWIV ---
Intake Vital Signs 02/09/24 08:33 Height 5 ft 3 in Weight 235 lb BMI 41.6 BP 122/82 Blood Pressure Location Lt brachial Position Sitting Pulse 78 Pulse Source Pulse Oximeter Pulse Oximetry (%) 98 Oxygen Delivery Method Room Air Intake Visit Reasons: EP-lt eye infection Intake Note: Patient here for for left eye that started off as a stye and it is now red and swollen and has some slight discharge. Patient Tobacco Use Status: Former Tobacco user Allergies Sulfa (Sulfonamide Antibiotics) Allergy (Unknown, Verified 02/09/24 08:34) hives sulfamethoxazole [From BACTRIM] Allergy (Unknown, Verified 02/09/24 08:34) HIVES trimethoprim [From BACTRIM] Allergy (Unknown, Verified 02/09/24 08:34) HIVES lisinopril Allergy (Mild, Uncoded 02/09/24 08:34) Cough Do you need a note to return to daycare/school/sports/work: No HPI HPI Comments History of Present Illness Details Patient is a 38-year-old female complaining of a left eyelid swelling and pain for the last few days. She has been treating it with warm compresses and thought it was getting better but this morning she woke up it was painful and she has states it is leaking yellow fluid. She denies any changes in her vision or fevers. She tells me she does not wear contacts. [facility] Medical History PTSD (post-traumatic stress disorder) Anemia Panic attack History of PCOS History of anemia Surgical History History of myringotomy History of tonsillectomy Family History Father Acute [place] CVD (cardiovascular disease) Mental health disorder Mother HTN (hypertension) Diabetes mellitus Depression Mental health disorder Maternal Grandmother Lung cancer Mental health disorder Paternal Grandmother Brain aneurysm CVD (cardiovascular disease) Mental health disorder Maternal Grandfather Mental health disorder Paternal Grandfather Mental health disorder Sister Mental health disorder Social History Housing: Apartment Alcohol intake: current Alcohol intake frequency: holidays/special occasions only Patient Tobacco Use Status: Former Tobacco user e-Cigarette/Vaping Use: Never Used Second Hand Smoke Exposure: Yes Substance Use Type: Marijuana service: No Current occupational status: employed Current occupation: [employer] Current occupational exposures/hazards: No Cognitive needs: No Hearing needs: No Vision needs: No Review of Systems Const All systems reviewed & are unremarkable except as noted in HPI and below Physical Exam Vital Signs: Last Vital Signs Pulse 78 02/09/24 08:33 BP 122/82 02/09/24 08:33 Pulse Ox 98 02/09/24 08:33 Oxygen Delivery Method Room Air 02/09/24 08:33 BMI result Body Mass Index 41.6 Const General: cooperative, healthy appearing, comfortable, no acute distress and well developed Orientation/consciousness: patient oriented x3 Limitations: no limitations HEENT Head: Yes normal to inspection Eyes Alignment and Position: alignment normal and position normal Periorbital: periorbital findings normal Eyelids: Yes eyelid abnormality (Right upper eyelid has area of swelling and erythema) Conjunctivae: conjunctival abnormal right conjunctival injection (mild); without discharge Neck Neck: Yes normal visual inspection and Yes supple Neuro General: patient oriented x3 Assessment & Plan Assessment & Plan (1) Hordeolum externum left upper eyelid: Code(s): H00.014 - Hordeolum externum left upper eyelid Plan: Recommended she use a antibiotic ointment as well as warm compresses and tea bags for swelling Plan See above Medications: New erythromycin Apply to left eye 4 times a day while awake 0.5 inches ophthalmic (eye) QID 3.5 grams 0RF Coding Level of Care Code Est Pt Level 3 (39623) Diagnoses Hordeolum externum left upper eyelid H00.014
[2024-02-09 08:33] VITALS: BP 122/82; PULSE 78; O2SAT 98; BMI 41.6
== END 2024-02-09 09:26 | disposition home or self-care (01) ==
PROVIDERS: PCP Nurse Practitioner Family; Visit Provider Physician Assistant
DX: H00.014 Hordeolum externum left upper eyelid (principal)

== ENCOUNTER → 2024-02-09 08:23 | Outpatient (BNVA) | payer BC, SELFPAY | PROVIDERS: PCP Nurse Practitioner Family ==

== ENCOUNTER 2024-05-14 15:02 | Outpatient (AMB) | payer BC, SELFPAY ==
[2024-05-14 15:05] VITALS: BP 120/74; PULSE 70; O2SAT 97; BMI 40.2
--- NOTE | 2024-05-14 15:05 | A.OFFVIS_ITS ---
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 Prior hx of colo/egd? N Concerns/Questions? Pt is concerned regarding a mass that they recently discovered as well as the abd labs. Allergies Sulfa (Sulfonamide Antibiotics) Allergy (Unknown, Verified 05/14/24 15:07) hives sulfamethoxazole [From BACTRIM] Allergy (Unknown, Verified 05/14/24 15:07) HIVES trimethoprim [From BACTRIM] Allergy (Unknown, Verified 05/14/24 15:07) HIVES lisinopril Adverse Reaction (Mild, Verified 05/14/24 15:07) Cough Medication List - Last Reconciled 05/14/24 by Coral Kaur, TRANSPORTATION ECONOMICS TEACHER- albuterol sulfate 90 mcg/actuation 1 inh inhalation QID PRN blood sugar diagnostic (FreeStyle Lite Strips) test blood sugar once a day blood-glucose meter (FreeStyle Lite Meter kit) As directed erythromycin 0.5 inches ophthalmic (eye) QID lancets (FreeStyle Lancets) Test blood sugar once a day lorazepam 1.5 mg (1.5 x 1 mg) PO DAILY 30 days omeprazole 20 mg PO BID PRN rosuvastatin 5 mg PO DAILY sertraline 100 mg PO DAILY 30 days tramadol 50 mg PO PRN HPI HPI ISO enzyme breakdown, elevated intestinal level: Details: 38-year-old female with past medical history of diabetes, previously on metformin now prediabetic, cervical radiculopathy, anxiety, spondylosis, PTSD, anemia is here today for initial consultation. Patient had her blood work done with PCP and was found to have alkaline phosphate isotope intestinal elevated and bone iso low. When reviewing patient's chart patient had elevation almost 2 years ago and then normal results. Patient denies any family history of CRC, positive for family history of IBD. Patient denies any melena, hematochezia, unintentional weight loss or ribbon like stools. History of anemia. Patient reports postprandial abdominal bloating, occasional acid reflux. Patient denies any dyspepsia, dysphagia or odynophagia. [facility] Medical History PTSD (post-traumatic stress disorder) Anemia Panic attack History of PCOS History of anemia Surgical History Hx of cholecystectomy History of myringotomy History of tonsillectomy Family History Father Acute [place] CVD (cardiovascular disease) Mental health disorder Mother HTN (hypertension) Diabetes mellitus Depression Mental health disorder Maternal Grandmother Lung cancer Mental health disorder Paternal Grandmother Brain aneurysm CVD (cardiovascular disease) Mental health disorder Maternal Grandfather Mental health disorder Paternal Grandfather Mental health disorder Sister Mental health disorder Social History Housing: Apartment Alcohol intake: current Alcohol intake frequency: holidays/special occasions only Patient Tobacco Use Status: Former Tobacco user e-Cigarette/Vaping Use: Never Used Second Hand Smoke Exposure: Yes Substance Use Type: Marijuana service: No Current occupational status: employed Current occupation: [employer] Current occupational exposures/hazards: No Cognitive needs: No Hearing needs: No Vision needs: No Review of Systems Const Denies weight gain and Denies weight loss ENT Reports no additional complaints, Denies dysphagia and Denies odynophagia Card Reports no additional complaints Resp Reports no additional complaints GI Reports abdominal pain, Denies belching, Denies melena, Reports bloating, Denies change in bowel habits, Reports constipation, Denies dysphagia, Denies excessive flatus, Denies dyspepsia, Denies heartburn, Denies diarrhea, Denies loose stools, Denies nausea, Denies odynophagia, Denies vomiting and Reports other (Rectal discomfort) Reports no additional complaints Musc Reports no additional complaints Neuro Reports no additional complaints Psych Reports no additional complaints Endo Reports no additional complaints Physical Exam Vital Signs: Last Vital Signs Pulse 70 05/14/24 15:05 BP 120/74 05/14/24 15:05 Pulse Ox 97 05/14/24 15:05 Oxygen Delivery Method Room Air 05/14/24 15:05 BMI result Body Mass Index 40.2 Const General: healthy appearing and no acute distress Nutritional Appearance: obese Orientation/consciousness: patient oriented x3 Resp Effort & Inspection: normal respiratory effort, able to speak in complete sentences, no tracheal deviation and symmetric chest movement Auscultation: clear to auscultation bilaterally Cardio Rate: regular rate GI Inspection: Yes normal to inspection, No distended and Yes obesity Palpation (GI): Soft to palpation, not firm, nontender and No hepatosplenomegaly present Auscultation: normal bowel sounds Rectal Exam - Female: other (Patient had very strong sphincter tone and I am unable to examine properly ) General: Yes no CVA tenderness Back/Spine/Pelvis Back: no CVA tenderness Skin General skin exam: elasticity normal, turgor normal and dry skin Neuro General: patient oriented x3 Psych Appearance: grossly normal Mental Status: mental status grossly normal Results Reviewed Results Reviewed: Laboratory Tests 05/24/23 12/09/23 12/23/23 07:18 08:28 13:12 AST 20 22 ALT 20 17 Alk Phos Iso-Intestine 36 H Alk Phos Iso-Bone 17 L Laboratory Tests 08/18/22 09/30/22 05/24/23 07:02 16:02 07:18 Alkaline Phosphatase 145 H 102 97 Alk Phos Iso-Intestine 13 Alk Phos Iso-Bone 33 12/09/23 12/23/23 08:28 13:12 Alkaline Phosphatase 127 H 101 Alk Phos Iso-Intestine Alk Phos Iso-Bone Assessment & Plan Assessment & Plan (1) Anemia: Code(s): D64.9 - Anemia, unspecified Category: Medical Qualifiers: Anemia type: unspecified type Qualified Code(s): D64.9 - Anemia, unspecified (2) Abnormal laboratory test: Code(s): R89.9 - Unspecified abnormal finding in specimens from other organs, systems and tissues (3) Rectal mass: Code(s): K62.89 - Other specified diseases of anus and rectum (4) IBS (irritable bowel syndrome): Code(s): K58.9 - Irritable bowel syndrome, unspecified Qualifiers: Irritable bowel syndrome type: without diarrhea Qualified Code(s): K58.9 - Irritable bowel syndrome, unspecified (5) Postprandial abdominal bloating: Code(s): R14.0 - Abdominal distension (gaseous) Plan Continue omeprazole on as needed basis. Patient only has acid reflux occasionally. Avoid dietary triggers and late night snacking. Patient agreed to rectal exam, dental specialist Beto PERES present during the exam. Patient tolerated well, unable to fully examine as patient had very strong sphincter tone and unable to determine if patient was describing hemorrhoids versus potential mass. Given that patient has bowel movements normal shape and size when she does have a bowel movement unlikely mass, however given her history of anemia in the past, elevated alkaline phosphate intestinal isoenzyme and occasional loose stools postprandially patient will go for colonoscopy. Patient does not have any family history of CRC. Possibility of malabsorption, will order vitamin-D, B12, folate, magnesium. Will order CRP as patient is experiencing occasional postprandial loose stools. Discussed with patient what to expect before during and after procedure. Stressed the importance of good bowel prep and clear liquid diet day before procedure. Patient will be meeting after disappointment with surgical schedulers to book procedure. Available spot opened up in June. Patient will follow-up in our office after the procedure. Patient will call if she will have any GI concerning symptoms. She is agreeable to current plan of care and verbalizes understanding of instructions. She was given the opportunity to ask questions and all questions answered. Thank you for allowing me to participate in her care Orders: Orders Transglutaminase IgA Today Coral Kaur TRANSPORTATION ECONOMICS TEACHER-BC R10.9 - Unspecified abdominal pain Vitamin D 25-OH (D2 and D3) Today Coral Kaur TRANSPORTATION ECONOMICS TEACHER-BC E55.9 - Vitamin D deficiency, unspecified Calcium Today Coral Kaur TRANSPORTATION ECONOMICS TEACHER-BC R89.9 - Unspecified abnormal finding in specimens from other organs, systems and tissues Vitamin B12 and Folate Today Coral Kaur TRANSPORTATION ECONOMICS TEACHER-BC R19.7 - Diarrhea, unspecified Magnesium Today Coral Kaur TRANSPORTATION ECONOMICS TEACHER-BC N18.9 - Chronic kidney disease, unspe cified C Reactive Protein Today Coral Kaur, TRANSPORTATION ECONOMICS TEACHER-BC K58.9 - Irritable bowel syndrome, unspecified Medications: New polyethylene glycol 3350 (Miralax) As directed by gastroenterology department at [facility] 238 grams PO ONCE 238 grams 0RF Coral Kaur TRANSPORTATION ECONOMICS TEACHER-BC Z12.11 - Encounter for screening for malignant neoplasm of colon bisacodyl (Dulcolax (bisacodyl)) take 4 tabs at noon the day before your colonoscopy 20 mg (4 x 5 mg) PO ONCE 1 day 4 tabs 0RF Coral Kaur, TRANSPORTATION ECONOMICS TEACHER-BC Z12.11 - Encounter for screening for malignant neoplasm of colon Changed From omeprazole 20 mg PO BID 30 days 60 caps 3RF To omeprazole 20 mg PO BID PRN John Wright, TRANSPORTATION ECONOMICS TEACHER-BC Coding Level of Care Code New Pt Level 4 (49655) Diagnoses Anemia, unspecified type D64.9 Anemia type: unspecified type Abnormal laboratory test R89.9 Rectal mass K62.89 Irritable bowel syndrome without diarrhea K58.9 Irritable bowel syndrome type: without diarrhea Postprandial abdominal bloating R14.0 Time Spent (min) 45 Comment 35 minutes spent with patient and additional 15 minutes spent reviewing her records
== END 2024-05-14 16:01 | disposition home or self-care (01) ==
PROVIDERS: PCP Nurse Practitioner Family; Visit Provider Nurse Practitioner Family
DX: D64.9 Anemia, unspecified (principal); R89.9 Unspecified abnormal finding in specimens from other organs, systems and tissues; K62.89 Other specified diseases of anus and rectum; K58.9 Irritable bowel syndrome, unspecified; R14.0 Abdominal distension (gaseous)
CPT/HCPCS: 99204

== ENCOUNTER 2024-05-14 15:02 | Outpatient (REF) | payer BC, SELFPAY ==
[2024-05-14 17:50] LABS: Calcium 9.3 mg/dL (8.4-10.2); Magnesium 1.9 mg/dL (1.6-2.6)
[2024-05-14 18:24] LABS: Folate 14.7 ng/mL (> or = 4.0); Vitamin B12 822 pg/mL (200-900)
[2024-05-17 15:24] LABS: Transglutaminase IgA <1.0 U/mL
[2024-05-18 13:58] LABS: Vitamin D 25-OH, D2 <4 ng/mL; Vitamin D 25-OH, D3 26 ng/mL; Vitamin D 25-OH, Total 26 ng/mL (30-100)
== END 2024-05-14 15:03 | disposition home or self-care (01) ==
LOC: HO.LAB 15:02
PROVIDERS: PCP Nurse Practitioner Family; Visit Provider Nurse Practitioner Family
DX: D64.9 Anemia, unspecified (principal); R89.9 Unspecified abnormal finding in specimens from other organs, systems and tissues; K62.89 Other specified diseases of anus and rectum; K58.9 Irritable bowel syndrome, unspecified; R14.0 Abdominal distension (gaseous)
CPT/HCPCS: 36415; 82306; 82310; 82607; 82746; 83735; 86140; 86364

== ENCOUNTER 2024-06-01 09:39 | Outpatient (REF) | payer BC, SELFPAY ==
--- NOTE | ~2024-06-01 | XR_ITS ---
EXAMINATION: XR SHOULDER 2 OR MORE VIEWS RIGHT HISTORY: RIGHT SHOULDER PAIN. COMPARISON: There are no prior studies available for comparison. FINDINGS: Four views of the right shoulder are submitted. Osseous mineralization is normal. There is no fracture or dislocation. The joint spaces are preserved. The soft tissues are unremarkable. XR/XR shoulder RT min 2V IMPRESSION: Unremarkable examination of the right shoulder. Electronically signed by: Onur Gomez MD 06/03/2024 11:14 AM [email or web address]
--- OUTSIDE RECORDS SUMMARY | 2024-06-01 09:42 | XMS_ITS | Encounter Summary ---
Author Organization [facility] Address [address] [place] [id number] Phone Care Team Providers Care Permastone Mechanic Name Role Phone Yoana Carballo MD Primary Care Provider Unava ilable Encounter Details Date Type Department Care Team (Late st Contact Info) Description 12/22/2016 Conversion Encounter [facility] - [address] [id number] Social History Tobacco Use Types Packs/Day Years Used Date Smoking Tobacco: Never Assessed Comments Unknown Sex and Gender Information Value Date Recorded Sex Assigned at Not on file Legal Sex Female 4:21 PM EDT Gender Identity Not on file Sexual Orientation Not on file documented as of this encounter Plan of Treatment Not on file documented as of this encounter Visit Diagnoses Not on filedocumented in this encounter Care Teams Permastone Mechanic Relationship Specialty Start Date End Date Yoana Carballo MD PCP - General 12/16/16 documented as of this encounter
--- OUTSIDE RECORDS SUMMARY | 2024-06-01 09:42 | XMS_ITS | Clinical Summary ---
Author Organization [facility] Address [address] [place] [phone] Phone Care Team Providers Care Tractor Operator Battery Name Role Phone Yoana Carballo MD Primary Care Provider Unava ilable Immunizations Name Administration Dates Next Due DTP 06/07/1998, 8,06/07/1997,03/07/19 97,09/05/1991 Hep B, ped/adol 10/07/1998,06/08/1998,11/27/1997 Hib (HbOC) 06/07/1998 IPV 06/07/1998, 8,06/07/1997,03/07/19 97 MMR 05/07/1998,12/05/1997 Td (adult) (MBL), 2 Lf tetan us toxoid, PF, adsorbed 1999 Family History Relation Name Status Comments Father Alive Father: Alive a nd well Mother Mother: Hyperte nsion, Asthma Sister 1 Alive Sister: Alive a nd well, Alive and well Sister 2 Alive Sister: Alive a nd well, Alive and well Social History Tobacco Use Types Packs/Day Years Used Date Smoking Tobacco: Never Assessed Comments Unknown Sex and Gender Information Value Date Recorded Sex Assigned at Not on file Legal Sex Female 4:21 PM EDT Gender Identity Not on file Sexual Orientation Not on file Plan of Treatment Health Maintenance Due Date Last Done Comments Varicella Vaccines (1 of 2 - 13+ 2-dose series) 12/01/1999 Consider Men B Vaccine (1 of 2 - Bexsero 2-dose series) 2002 DTaP,Tdap,and Td Vaccines (5 - Tdap) 11/29/2009 1999, 06/07/1998, 08/05/1997, Additional history exists Influenza Vaccines (#1) 2023 COVID-19 Vaccine ( season) 2024 MMR Vaccines Completed 05/07/1998, 12/05/1997 HIB Vaccines Aged Out 06/07/1998 No longer eligi ble based on patient's age to complete this topic IPV Vaccines Completed 06/07/1998, 07/08, 06/07/1997, Additional history exists Hepatitis B Vaccines Completed 10/07/1998, 06/08/1998, 11/27/1997 HPV Vaccines Aged Out No longer eligi ble based on patient's age to complete this topic Hepatitis A Vaccines Aged Out No long er eligible based on patient's age to complete this topic Men B Vaccine Aged Out No longer elig ible based on patient's age to complete this topic Meningococcal Vaccine Aged Out No vy deja eligible based on patient's age to complete this topic Pneumococcal Vaccine Aged Out No long er eligible based on patient's age to complete this topic Care Teams Tractor Operator Battery Relationship Specialty Start Date End Date Yoana Carballo MD PCP - General 12/16/16
--- OUTSIDE RECORDS SUMMARY | 2024-06-01 09:42 | XMS_ITS | Clinical Summary ---
Author Organization [facility] Address [address] [place] [address] Care Team Providers Care Quality Control Assessor Name Role Phone Unavailable Primary Care Provider Unavailabl e Social History Tobacco Use Types Packs/Day Years Used Date Smoking Tobacco: Never Assessed Sex and Gender Information Value Date Recorded Sex Assigned at Not on file Gender Identity Not on file Sexual Orientation Not on file Plan of Treatment Health Maintenance Due Date Last Done Comments DTaP,Tdap,and Td Vaccines (1 - Tdap) 2005 Hepatitis B Vaccines (1 of 3 - 19+ 3-dose series) 2005 Cervical Cancer Screening: P ap Smear 12/01/2007 Depression Screening 04/09/2022 HIV Screening 04/09/2022 Hepatitis C Screening 04/09/2022 Social Influencers of Health Screening 04/09/2022 COVID-19 Vaccine (2023-2 5 season) 2024 Influenza Vaccine (#1) 2024 HIB Vaccines Aged Out No longer eligi ble based on patient's age to complete this topic HPV Vaccines Aged Out No longer eligi ble based on patient's age to complete this topic Hepatitis A Vaccines Aged Out No long er eligible based on patient's age to complete this topic IPV Vaccines Aged Out No longer eligi ble based on patient's age to complete this topic MMR Vaccines Aged Out No longer eligi ble based on patient's age to complete this topic Meningococcal ACWY Vaccine Aged Out N o longer eligible based on patient's age to complete this topic Pneumococcal Vaccine: Pediat rics (0 to 5 Years) and At-Risk Patients (6 to 64 Years) Aged Out No longer eligible b ased on patient's age to complete this topic RSV Immunization Patients Un barbie 20 months Aged Out No longer eligible b ased on patient's age to complete this topic Varicella Vaccines Aged Out No longer eligible based on patient's age to complete this topic
== END 2024-06-01 09:40 | disposition home or self-care (01) ==
LOC: HO.HMGCX 09:39
PROVIDERS: PCP Nurse Practitioner Family; Visit Provider Student in an Organized Health Care Education/Training Program
DX: M25.511 Pain in right shoulder (principal)
CPT/HCPCS: 73030

== ENCOUNTER → 2024-06-01 09:44 | Outpatient (BNV) | payer BC, SELFPAY | PROVIDERS: PCP Nurse Practitioner Family; Visit Provider Radiology Diagnostic Radiology | DX: M25.511 Pain in right shoulder (principal) | CPT/HCPCS: 73030 ==

== ENCOUNTER 2024-06-17 08:38 | Outpatient (REF) | payer BC, SELFPAY ==
--- OUTSIDE RECORDS SUMMARY | 2024-06-17 10:05 | XMS_ITS | Encounter Summary ---
Author Organization [facility] Address [address] [place] [phone] Phone Care Team Providers Care Natural Resource Economist Name Role Phone Yoana Carballo MD Primary Care Provider Unava ilable Encounter Details Date Type Department Care Team (Late st Contact Info) Description 12/22/2016 Conversion Encounter [facility] - [address] [phone] Social History Tobacco Use Types Packs/Day Years [...] on filedocumented in this encounter Care Teams Natural Resource Economist Relationship Specialty Start Date End Date Yoana Carballo MD PCP - General 12/16/16 documented as of this encounter
--- OUTSIDE RECORDS SUMMARY | 2024-06-17 10:05 | XMS_ITS | Clinical Summary ---
Author Organization [facility] Address [address] [place] [phone] Phone Care Team Providers Care Stunt Performer Name Role Phone Yoana Carballo MD Primary Care Provider Unava ilable Immunizations Immunization Administration Dates Next Due DTP 06/07/1998, 8,06/07/1997,1996,09/05/1991 Hep B, ped/adol 10/07/1998,06/08/1998,11/27/1997 Hib (HbOC) 06/07/1998 IPV 06/07/1998, 8,06/07/1997,1996 MMR 05/07/1998,12/05/1997 Td (adult) (MBL), 2 Lf [...] of 2 - 13+ 2-dose series) 12/01/1999 DTaP,Tdap,and Td Vaccines (5 - Tdap) 11/29/2009 [...] age to complete this topic Care Teams Stunt Performer Relationship Specialty Start Date End Date Yoana Carballo MD PCP - General 12/16/16
--- OUTSIDE RECORDS SUMMARY | 2024-06-17 10:05 | XMS_ITS | Clinical Summary ---
Author Organization [facility] Address [address] [place] [address] Care Team Providers Care Pottery Machine Operator Name Role Phone Unavailable Primary Care Provider Unavailabl e Social History Tobacco Use Types Packs/Day Years Used Date Smoking Tobacco: Never Assessed Comments Unknown Sex and Gender Information Value Date Recorded Sex Assigned at Not on file Legal Sex Female 10:02 PM EST Gender Identity Not on file Sexual Orientation Not on file Plan of Treatment Health Maintenance Due Date Last Done Comments DTaP,Tdap,and Td Vaccines (1 - Tdap) 1993 Hepatitis B Vaccines (1 of 3 - [...] patient's age to complete this topic Meningococcal B Vacine Aged Out No lo nger eligible based on patient's age to complete [...]
[2024-06-17 15:24] LABS: Influenza A PCR POSITIVE (Negative); Influenza B PCR NEGATIVE (Negative); Resp Syncy Virus RNA Qual PCR NEGATIVE (Negative); SARS COV2 PCR INHOUSE NEGATIVE (Negative)
== END 2024-06-17 08:39 | disposition home or self-care (01) ==
LOC: HO.LAB 08:38
PROVIDERS: PCP Nurse Practitioner Family; Visit Provider Physician Assistant
DX: J22 Unspecified acute lower respiratory infection (principal); R09.89 Other specified symptoms and signs involving the circulatory and respiratory systems; H66.001 Acute suppurative otitis media without spontaneous rupture of ear drum, right ear
CPT/HCPCS: 0241U

== ENCOUNTER 2024-06-17 08:38 | Outpatient (AMB) | payer BC, SELFPAY ==
--- NOTE | 2024-06-17 09:05 | MHC.OFFWIV ---
Intake Vital Signs 06/17/24 09:08 Weight 226 lb BP 124/80 Blood Pressure Location Lt brachial Position Sitting Pulse 73 Pulse Source Pulse Oximeter Temp 98.1 F Temp Source Oral Pulse Oximetry (%) 98 Oxygen Delivery Method Room Air Intake Visit Reasons: EP-rt ear pain, lung fluid Intake Note: Patient here for right ear pain, cough, wheezing that has been present for about 1 week Patient Tobacco Use Status: Former Tobacco user Allergies Sulfa (Sulfonamide Antibiotics) Allergy (Unknown, Verified 06/17/24 09:09) hives sulfamethoxazole [From BACTRIM] Allergy (Unknown, Verified 06/17/24 09:09) HIVES trimethoprim [From BACTRIM] Allergy (Unknown, Verified 06/17/24 09:09) HIVES lisinopril Adverse Reaction (Mild, Verified 06/17/24 09:09) Cough Do you need a note to return to daycare/school/sports/work: No HPI HPI Comments History of Present Illness Details History - The patient is a 38-year-old female presenting with a right sided earache and respiratory symptoms. - She has been experiencing respiratory symptoms such as coughing, wheezing, and yellow sputum production for the last week. - Previously diagnosed with bronchitis, she manages respiratory symptoms using an inhaler and has one at home to use. - The earache began with significant discomfort in the right ear, accompanied by drainage. - A slight fever of 99?F was noted but did not prompt initial medical evaluation. - The patient is a former smoker, abstinent for 11 years. currently only smoking cannibas occasionally. - She has a history of recurrent ear infections, necessitating medical intervention to prevent worsening symptoms. Physical Exam General: Cooperative, healthy appearing, comfortable and no acute distress Orientation/consciousness: Patient oriented x3 Limitations: No limitations Head: Normal to inspection Ears: Hearing grossly normal bilaterally, external ears normal, TM's right ear with fluid, erythema and scant purulence, left TM normal Nose: Normal external nose present, Normal nares present and No nasal discharge present Face and sinus: Normal facial exam and Yes sinuses nontender Mouth: Normal oral and palatal mucosa present and moist mucous membranes Throat: Yes tonsils normal, Yes uvula midline. Posterior oropharynx erythema Eyes: Appearance normal, both eyes and all related structures Neck: Normal visual inspection Respiratory: slight exp wheeze throughout. Normal respiratory effort, able to speak in complete sentences, Actively coughing, no respiratory distress, not tachypneic, no tripod positioning and no use of accessory muscles Cardiovascular: Regular rate and rhythm. Normal S1 and S2 Skin: No rashes or lesions noted Neuro: Patient oriented x3 Extremities: Normal to inspection and Yes no clubbing, cyanosis or edema PFSH Medical History PTSD (post-traumatic stress disorder) Anemia Panic attack History of PCOS History of anemia Surgical History Hx of cholecystectomy History of myringotomy History of tonsillectomy Family History Father Acute HI CVD (cardiovascular disease) Mental health disorder Mother HTN (hypertension) Diabetes mellitus Depression Mental health disorder Maternal Grandmother Lung cancer Mental health disorder Paternal Grandmother Brain aneurysm CVD (cardiovascular disease) Mental health disorder Maternal Grandfather Mental health disorder Paternal Grandfather Mental health disorder Sister Mental health disorder Social History Housing: Apartment Alcohol intake: current Alcohol intake frequency: holidays/special occasions only Patient Tobacco Use Status: Former Tobacco user e-Cigarette/Vaping Use: Never Used Second Hand Smoke Exposure: Yes Substance Use Type: Marijuana service: No Current occupational status: employed Current occupation: [employer] Current occupational exposures/hazards: No Cognitive needs: No Hearing needs: No Vision needs: No Review of Systems Const All systems reviewed & are unremarkable except as noted in HPI and below Physical Exam Vital Signs: Last Vital Signs Temp 98.1 F 06/17/24 09:08 Pulse 73 06/17/24 09:08 BP 124/80 06/17/24 09:08 Pulse Ox 98 06/17/24 09:08 Oxygen Delivery Method Room Air 06/17/24 09:08 Assessment & Plan Assessment & Plan (1) Lower respiratory infection (e.g., bronchitis, pneumonia, pneumonitis, pulmonitis): Code(s): J22 - Unspecified acute lower respiratory infection Plan: Plan Treatment includes initiation of amoxicillin 875 mg twice daily for 5 days to address the acute otitis media. Prednisone 20 mg daily is prescribed to manage respiratory symptoms of bronchitis, focusing on reducing inflammation and wheezing. Flonase is advised to alleviate nasal congestion, with proper usage instructions given. Testing for COVID-19 and RSV was performed to rule out viral infections. This combined therapeutic approach aims to target the bacterial etiology effectively and ensure symptomatic relief in accordance with clinical findings. Patient was informed and verbally consented to the use of an ambient scribe for clinic note documentation during this visit (2) Otitis media: Code(s): H66.90 - Otitis media, unspecified, unspecified ear Qualifiers: Chronicity: acute Laterality: right Otitis media type: suppurative Recurrence: non-recurrent Spontaneous tympanic membrane rupture: without spontaneous rupture Qualified Code(s): H66.001 - Acute suppurative otitis media without spontaneous rupture of ear drum, right ear Plan: see above Orders: Orders SARS-CoV2/FLU/RSV Today R09.89 - Other specified symptoms and signs involving the circulatory and respiratory systems Medications: New prednisone 20 mg PO DAILY 5 tabs 0RF amoxicillin 875 mg PO Q12H 10 tabs 0RF Coding Level of Care Code Est Pt Level 4 (79301) Diagnoses Lower respiratory infection (e.g., bronchitis, pneumonia, pneumonitis, pulmonitis) J22 Non-recurrent acute suppurative otitis media of right ear without spontaneous rupture of tympanic membrane H66.001 Chronicity: acute Laterality: right Otitis media type: suppurative Recurrence: non-recurrent Spontaneous tympanic membrane rupture: without spontaneous rupture
[2024-06-17 09:08] VITALS: BP 124/80; PULSE 73; TEMP 36.7; O2SAT 98
== END 2024-06-17 09:46 | disposition home or self-care (01) ==
PROVIDERS: PCP Nurse Practitioner Family; Visit Provider Physician Assistant
DX: J22 Unspecified acute lower respiratory infection (principal); H66.001 Acute suppurative otitis media without spontaneous rupture of ear drum, right ear

== ENCOUNTER 2024-07-04 07:28 | Day surgery (SDC) | payer BC, SELFPAY ==
[2024-07-02 14:12] VITALS: BMI 40.2
--- NOTE | 2024-07-03 09:47 | HO.ANESPROP2 ---
Documented by User: Jada Contreras NP 07/03/24 09:47 HPI - Anesthesia Eval Consult details Narrative: 38yo F for Colonoscopy PMFSH Active Problems Active Problems: All Active Problems Lower respiratory infection (e.g., bronchitis, pneumonia, pneumonitis, pulmonitis) (Acute) Hordeolum externum left upper eyelid (Acute) Depression (Acute) Anxiety (Acute) Diabetes (Acute) Cervical radiculopathy (Acute) Elevated alkaline phosphatase level (Acute) Newly diagnosed diabetes (Acute) Physical exam (Acute) Systolic murmur (Acute) Spondylosis without myelopathy or radiculopathy, lumbar region (Acute) Lower back pain (Acute) Post-COVID chronic shortness of breath (Acute) Left lateral abdominal pain (Acute) Left flank pain (Acute) Hematuria (Acute) Knee pain (Acute) PTSD (post-traumatic stress disorder) (Acute) Anemia (Acute) Past Medical History Medical History Diabetes Anxiety PTSD (post-traumatic stress disorder) Anemia Panic attack History of PCOS History of anemia Family History Family History Father Acute MA CVD (cardiovascular disease) Mental health disorder Mother HTN (hypertension) Diabetes mellitus Depression Mental health disorder Maternal Grandmother Lung cancer Mental health disorder Paternal Grandmother Brain aneurysm CVD (cardiovascular disease) Mental health disorder Maternal Grandfather Mental health disorder Paternal Grandfather Mental health disorder Sister Mental health disorder Surgical History Surgical History Hx of cholecystectomy History of myringotomy History of tonsillectomy Social History Social History Housing: Apartment Are you a primary acute care assistant to a significant other at home: No Do you presently have visiting nurse or other home services: No Alcohol intake: current Alcohol intake frequency: holidays/special occasions only Patient Tobacco Use Status: Former Tobacco user e-Cigarette/Vaping Use: Never Used Second Hand Smoke Exposure: Yes Substance Use Type: Marijuana service: No Current occupational status: employed Current occupation: [employer] Current occupational exposures/hazards: No Cognitive needs: No Hearing needs: No Vision needs: No Meds Allergies Allergy/AdvReac Type Severity Reaction Status Date / Time Sulfa (Sulfonamide Allergy Intermediate hives Verified 07/04/24 07:52 Antibiotics) sulfamethoxazole Allergy Intermediate HIVES Verified 07/04/24 07:52 [From BACTRIM] trimethoprim [From BACTRIM] Allergy Intermediate HIVES Verified 07/04/24 07:52 lisinopril AdvReac Mild Cough Verified 07/04/24 07:52 Home Medications ?Medication ?Instructions ?Recorded ?Confirmed ?Last Taken ?Type tramadol 50 mg tablet 50 mg PO PRN Pain, Moderate 07/19/23 05/14/24 Unknown History Exam Height,Weight and Vital Signs: Height 5 ft 3 in Weight 102.965 kg Assessment and Plan Assessment Anesthesia Assessment: Chart Reviewed Documented by User: Feng Koch MD 07/04/24 09:30 [facility] Past Medical History Medical History Diabetes Anxiety PTSD (post-traumatic stress disorder) Anemia Panic attack History of PCOS History of anemia Patient : No Family History Family History Father Acute MA CVD (cardiovascular disease) Mental health disorder Mother HTN (hypertension) Diabetes mellitus Depression Mental health disorder Maternal Grandmother Lung cancer Mental health disorder Paternal Grandmother Brain aneurysm CVD (cardiovascular disease) Mental health disorder Maternal Grandfather Mental health disorder Paternal Grandfather Mental health disorder Sister Mental health disorder Family history of problems with anesthesia: No Surgical History Surgical History Hx of cholecystectomy History of myringotomy History of tonsillectomy History of Problems with Anesthesia: No Social History Social History Housing: Apartment Are you a primary acute care assistant to a significant other at home: No Do you presently have visiting nurse or other home services: No Alcohol intake: current Alcohol intake frequency: holidays/special occasions only Patient Tobacco Use Status: Former Tobacco user e-Cigarette/Vaping Use: Never Used Second Hand Smoke Exposure: Yes Substance Use Type: Marijuana service: No Current occupational status: employed Current occupation: [employer] Current occupational exposures/hazards: No Cognitive needs: No Hearing needs: No Vision needs: No Meds Allergies Allergy/AdvReac Type Severity Reaction Status Date / Time Sulfa (Sulfonamide Allergy Intermediate hives Verified 07/04/24 07:52 Antibiotics) sulfamethoxazole Allergy Intermediate HIVES Verified 07/04/24 07:52 [From BACTRIM] trimethoprim [From BACTRIM] Allergy Intermediate HIVES Verified 07/04/24 07:52 lisinopril AdvReac Mild Cough Verified 07/04/24 07:52 Home Medications ?Medication ?Instructions ?Recorded ?Confirmed ?Last Taken ?Type tramadol 50 mg tablet 50 mg PO PRN Pain, Moderate 07/19/23 05/14/24 Unknown History Exam Airway Mallampati Class: II TM Dist: <=3cm Neck ROM: Full Loose/Missing/Broken Teeth: No Heart: ok Lungs: ok Assessment and Plan Assessment Anesthesia Assessment: Anesthesia Plan Discussed Final Anesthetic Review Family History of Problems with Anesthesia: No History of Problems with Anesthesia: No NPO: Yes ASA Class: III Final Preanesthetic Review: No Changes in Pt Med Stat, Meds/Allgs Chart Reviewed, Consent Obtained/Reviewed and Anes Risks/Benef Reviewed Patient Risk: Intermediate Procedure Risk: Low Anesthetic Plan Anesthetic Plan: MAC: and Agree w/ Assess. and Plan Disposition: Standard PACU
[2024-07-04 07:51] VITALS: BMI 40.4
[2024-07-04] MEDS: Lactated Ringers 1,000 ML 100 ML IVCONT (08:03)
[2024-07-04 08:07] LABS: UPreg QC Valid YES; Urine Pregnancy NEGATIVE (NEGATIVE)
[2024-07-04 08:16] VITALS: BP 135/83; PULSE 71; RESP 18; TEMP 36.6; O2SAT 96
--- NOTE | 2024-07-04 09:10 | P.HPSUR_ITS ---
Pre-Procedural Eval Section A - 24 Hr Update-Section A only Date of Service: 07/04/24 Section B - Complete if H&P > 30 days Chief Complaint: Unspecified abnormal finding in specimens from oth Relevant Family History (Specify if Yes): No Relevant Social History: None Present Medications: see Short Stay Collaborative assessment Medical History: Significant History (PTSD (post-traumatic stress disorder) A nemia Panic attack History of PCOS History of anemia) History of Previous Operations: Relevant previous surgery/procedure and date(s) (Hx of cholecystectomy History of myringotomy History of tonsillectomy) Allergies: Allergies Allergy/AdvReac Type Severity Reaction Status Date / Time Sulfa (Sulfonamide Allergy Intermediate hives Verified 07/04/24 07:52 Antibiotics) sulfamethoxazole Allergy Intermediate HIVES Verified 07/04/24 07:52 [From BACTRIM] trimethoprim [From BACTRIM] Allergy Intermediate HIVES Verified 07/04/24 07:52 lisinopril AdvReac Mild Cough Verified 07/04/24 07:52 Review of Systems Sugical H&P ROS: Negative: Constitution, Cardiovascular, Respiratory, Neurological, Psychiatric, Hem-Onc, Allergic/Immunologic, Gastrointestinal, Genitourinary, Musculoskeletal, Integumentary, Endocrine and Eyes/Ears/Nose/Throat Exam Surgical H&P Exam: Normal: HEENT, Normal: Heart, Normal: Lungs, Normal: Extremities, Normal: Abdomen, Normal: Skin and Normal: Neurological Plan Diagnosis/Plan: Unchanged I have reviewed the history and physical and performed a pertinent physical examination on my patient. No changes have occurred unless specified. Time Spent With Patient Time: Total time managing care of this patient today ____ minutes.
--- NOTE | 2024-07-04 09:42 | P.OPN-COLO_ITS ---
Colonoscopy Operative Note Operative Note Date of Service: 07/04/24 Narrative: Operative Information Procedure Description: Colonoscopy Indication: abn bowel habit Anesthesia: MAC COLONOSCOPY Instrument: Olympus variable stiffness pediatric scope 190L Colonoscopy Monitoring: Vital signs and clinical assessment, continuous EKG monitoring, Pulse oximetry, Carbon Dioxide monitoring and blood pressure monitoring were done throughout the procedure. Colon withdrawal time was 13 minutes. Procedure: The patient was placed in the left lateral decubitis position and pre-procedure medications were administered. After a digital rectal examination of the ano-rectum, the video colonoscope was inserted into the rectum and advanced through the colon to the cecum/TI. The colonoscope was slowly withdrawn in a retrograde panoramic fashion and the colon mucosa was carefully examined including a retroflexed view of the rectum. Findings and interventions are described below. Procedure Difficulty: easy Findings: Terminal Ileum-normal, bx taken random colon bx taken Cecum:normal Ascending Colon: normal Transverse Colon -normal Descending Colon:normal Sigmoid Colon: normal Rectum: Retroflexion with small internal hemorrhoids seen, grade I with skin tag note Anorectum - normal Intervention: cold forceps bx Colon preparation: [place] Bowel Preparation Scale Right colon; 2 Transverse colon: 3 Left colon; 3 (0 = Unprepared colon segment with mucosa not seen due to solid stool that cannot be cleared. 1 = Portion of mucosa of the colon segment seen, but other areas of the colon segment not well seen due to staining, residual stool and/or opaque liquid. 2 = Minor amount of residual staining, small fragments of stool and/or opaque liquid, but mucosa of colon segment seen well. 3 = Entire mucosa of colon segment seen well with no residual staining, small fragments of stool or opaque liquid) Impression and Post Procedure Diagnosis: internal hemorrhoids with skin tag Plan: High fiber diet leaflet Avoid straining at stool, epsom salts and sitz bath, anusol supps or cream Repeat Colonoscopy aged 45 years or earlier if clinically indicated Above findings were reviewed with the patient and relevant handouts were provided if indicated.
[2024-07-04 09:48] VITALS: BP 120/72; PULSE 65; RESP 20; TEMP 36.2; O2SAT 99
[2024-07-04 10:03] VITALS: BP 121/64; PULSE 62; RESP 16; TEMP 36.4; O2SAT 99
== END 2024-07-04 10:44 | disposition home or self-care (01) ==
PROVIDERS: Nurse Practitioner; PCP Nurse Practitioner Family; Visit Provider Internal Medicine Gastroenterology
PROC: 0DJD8ZZ Inspection of Lower Intestinal Tract, Via Natural or Artificial Opening Endoscopic (ICD-10-PCS; CPT 45378; principal; 2024-07-04 09:10)
DX: K64.0 First degree hemorrhoids (principal); K64.4 Residual hemorrhoidal skin tags; R19.4 Change in bowel habit; R89.9 Unspecified abnormal finding in specimens from other organs, systems and tissues; K58.9 Irritable bowel syndrome, unspecified; K62.89 Other specified diseases of anus and rectum; E11.9 Type 2 diabetes mellitus without complications; D64.9 Anemia, unspecified; F12.90 Cannabis use, unspecified, uncomplicated; Z87.891 Personal history of nicotine dependence; Z79.899 Other long term (current) drug therapy; Z79.02 Long term (current) use of antithrombotics/antiplatelets; Z79.84 Long term (current) use of oral hypoglycemic drugs
CPT/HCPCS: 45380; 81025; 88305; J2003; J2704

== ENCOUNTER → 2024-07-04 07:28 | Outpatient (BNV) | payer BC, SELFPAY | PROVIDERS: PCP Nurse Practitioner Family; Visit Provider Internal Medicine Gastroenterology | DX: R19.4 Change in bowel habit (principal); K64.8 Other hemorrhoids; K64.4 Residual hemorrhoidal skin tags | CPT/HCPCS: 45380 ==

== ENCOUNTER 2024-07-09 08:52 | Outpatient (REF) | payer BC, SELFPAY ==
--- OUTSIDE RECORDS SUMMARY | 2024-07-09 09:33 | XMS_ITS | Encounter Summary ---
Author Organization [facility] Address [address] [place] [phone] Phone Care Team Providers Care Shoe Cleaner Name Role Phone Yoana Carballo MD Primary Care Provider Unava ilable Encounter Details Date Type Department Care Team (Late st Contact Info) Description 12/22/2016 Conversion Encounter [facility] - [address] [phone] Social History Tobacco Use Types Packs/Day Years [...] on filedocumented in this encounter Care Teams Shoe Cleaner Relationship Specialty Start Date End Date Yoana Carballo MD PCP - General 12/16/16 documented as of this encounter
--- OUTSIDE RECORDS SUMMARY | 2024-07-09 09:33 | XMS_ITS | Clinical Summary ---
Author Organization [facility] Address [address] [place] [address] Care Team Providers Care Ladies Underwear Operator Name Role Phone Unavailable Primary Care [...]
--- OUTSIDE RECORDS SUMMARY | 2024-07-09 09:33 | XMS_ITS | Clinical Summary ---
Author Organization [facility] Address [address] [place] [id number] Phone Care Team Providers Care Instructional Systems Designer Name Role Phone Yoana Carballo MD Primary [...] age to complete this topic Care Teams Instructional Systems Designer Relationship Specialty Start Date End Date Yoana Carballo MD PCP - General 12/16/16
[2024-07-09 09:56] LABS: MANUAL DIFF FLAG NO
[2024-07-09 10:02] LABS: Appearance Urine Turbid; Color Urine Yellow; Glucose Urine UA Negative (Negative); Leukocyte Esterase Urine Negative (Negative); Nitrite Urine Negative (Negative); PH 8.5 (5.0-9.0); Urine Blood Negative (Negative); Urine Ketones Negative (Negative); Urine Protein Negative (Neg-Trace)
[2024-07-09 10:02] LABS: Basophils Percent Auto 0.4 % (0-2); Eosinophils Absolute Auto 0.2 X10*3/uL (0.0-0.4); Eosinophils Percent Auto 2.6 % (0-4); Hematocrit 40.4 % (37.0-47.0); Hemoglobin 13.4 g/dl (12.0-16.0); Imm Gran Abs Auto 0.02 X10*3/uL (0.00-0.03); Imm Gran Pct Auto 0.3 % (0.0-0.4); Lymphocytes Absolute Auto 1.7 X10*3/uL (1.2-4.9); Lymphocytes Percent Auto 22.4 % (20-40); Mean Corpuscular HGB Conc 33.2 g/dl (31.0-35.0); Mean Corpuscular Hemoglobin 28.9 pg (27.0-33.0); Mean Corpuscular Volume 87.3 fL (80.0-98.0); Mean Platelet Volume 8.8 fL (9.4-12.3); Monocytes Absolute Auto 0.5 X10*3/uL (0.1-1.2); Monocytes Percent Auto 6.7 % (2-11); Neutrophils Absolute Auto 5.3 x10*3/uL (2.0-8.3); Neutrophils Percent Auto 67.6 % (45-73); Platelet Count 273 X10*3/uL (160-400); Red Blood Count 4.63 X10*6/uL (4.20-5.50); Red Cell Distribution Width 13.6 % (11.0-16.0); White Blood Count 7.8 X10*3/uL (4.8-10.8)
[2024-07-09 10:34] LABS: Creatinine Urine 119.09 mg/dL; Microalbumin Urine < 5.0 mg/L
[2024-07-09 10:40] LABS: Alanine Aminotransferase 24 U/L (0-31); Albumin Level 4.1 g/dL (3.5-5.0); Alkaline Phosphatase 107 U/L (39-117); Anion Gap 10 (12-20); Aspartate Amino Transferase 23 U/L (5-31); Bilirubin Total 0.3 mg/dL (0.0-1.0); Blood Urea Nitrogen 13 mg/dL (9-16); Carbon Dioxide 27 mmol/L (22-29); Chloride 107 mmol/L (96-108); Cholesterol 145 mg/dL (<200); Estimated Glomerular Filt Rate > 60; Glucose Fasting 119 mg/dL (60-99); HDL Cholesterol 51 mg/dL (>40); LDL Cholesterol Calculated 74 mg/dL (<100); Potassium 4.3 mmol/L (3.3-5.1); Sodium 140 mmol/L (135-145); Total Protein 7.1 g/dL (6.5-8.0); Triglycerides 104 mg/dL (<150)
[2024-07-09 10:54] LABS: TSH reflex Free T4 2.38 uIU/mL (0.32-4.0)
[2024-07-10 08:39] LABS: Estimated Average Glucose 126 mg/dL; Hemoglobin A1C 144.9893 umol/L
== END 2024-07-09 08:53 | disposition home or self-care (01) ==
LOC: HO.HMGCLDS 08:52
PROVIDERS: PCP Nurse Practitioner Family; Visit Provider Nurse Practitioner Family
DX: E11.9 Type 2 diabetes mellitus without complications (principal)
CPT/HCPCS: 36415; 80053; 80061; 81003; 82043; 82570; 83036; 84443; 85025

== ENCOUNTER 2024-07-10 11:22 | Outpatient (AMB) | payer BC, SELFPAY ==
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
[2024-07-10 11:25] VITALS: BP 122/76; PULSE 75; O2SAT 97; BMI 40.6
--- OUTSIDE RECORDS SUMMARY | 2024-07-10 13:46 | XMS_ITS | Clinical Summary ---
Author Organization [facility] Address [address] [place] [id number] Phone Care Team Providers Care Staffing Analyst Name Role Phone Yoana Carballo MD Primary [...] age to complete this topic Care Teams Staffing Analyst Relationship Specialty Start Date End Date Yoana Carballo MD PCP - General 12/16/16
--- OUTSIDE RECORDS SUMMARY | 2024-07-10 13:46 | XMS_ITS | Clinical Summary ---
Author Organization [facility] Address [address] [place] [address] Care Team Providers Care Assistant Head Cashier Name Role Phone Unavailable Primary Care Provider [...]
--- OUTSIDE RECORDS SUMMARY | 2024-07-10 13:46 | XMS_ITS | Encounter Summary ---
Author Organization [facility] Address [address] [place] [id number] Phone Care Team Providers Care Oceanographer Geological Name Role Phone Yoana Carballo MD Primary Care Provider Unava ilable Encounter Details Date Type Department Care Team (Late st Contact Info) Description 12/22/2016 Conversion Encounter [facility] - [address] [phone] Social History Tobacco Use Types Packs/Day Years [...] on filedocumented in this encounter Care Teams Oceanographer Geological Relationship Specialty Start Date End Date Yoana Carballo MD PCP - General 12/16/16 documented as of this encounter
== END 2024-07-10 11:58 | disposition home or self-care (01) ==
PROVIDERS: PCP Nurse Practitioner Family; Visit Provider Nurse Practitioner Family
DX: E11.9 Type 2 diabetes mellitus without complications (principal); F11.10 Opioid abuse, uncomplicated; F32.A Depression, unspecified; F41.9 Anxiety disorder, unspecified; F90.9 Attention-deficit hyperactivity disorder, unspecified type

== ENCOUNTER → 2024-07-10 11:22 | Outpatient (BNVA) | payer BC, SELFPAY | PROVIDERS: PCP Nurse Practitioner Family; Visit Provider Nurse Practitioner Family | DX: E11.9 Type 2 diabetes mellitus without complications (principal); F32.A Depression, unspecified; F41.9 Anxiety disorder, unspecified; F90.9 Attention-deficit hyperactivity disorder, unspecified type; F11.10 Opioid abuse, uncomplicated | CPT/HCPCS: 96127 ==

== ENCOUNTER 2024-10-03 13:45 | Outpatient (AMB) | payer BC, SELFPAY ==
[2024-10-03 13:50] VITALS: BP 132/74; PULSE 81; TEMP 36.7; O2SAT 97; BMI 40.6
--- NOTE | 2024-10-03 13:50 | AM.OFFWIN_ITS ---
Intake Vital Signs 10/03/24 13:50 Height 5 ft 3 in Weight 229 lb BMI 40.6 BP 132/74 Blood Pressure Location Lt brachial Position Sitting Pulse 81 Pulse Source Pulse Oximeter Temp 98.1 F Temp Source Oral Pulse Oximetry (%) 97 Intake Visit Reasons: EP pain on RT side & Swollen RT breast Patient Tobacco Use Status: Former Tobacco user Allergies Sulfa (Sulfonamide Antibiotics) Allergy (Intermediate, Verified 10/03/24 13:50) hives sulfamethoxazole [From BACTRIM] Allergy (Intermediate, Verified 10/03/24 13:50) HIVES trimethoprim [From BACTRIM] Allergy (Intermediate, Verified 10/03/24 13:50) HIVES lisinopril Adverse Reaction (Mild, Verified 10/03/24 13:50) Cough Do you need a note to return to daycare/school/sports/work: No HPI HPI Comments History of Present Illness Details History of Present Illness - The patient is a 38-year-old female pr esenting with severe right-sided breast pain and swelling. - She reports waking up with intense david n involving the shoulder and chest muscles. - The skin on the affected side is red, hot, and swollen, with significant tenderness. - The redness is noted to extend to the breast and back of the arm. - The patient has a history of shoulder pain and subscapularis tendinosis. Physical Exam General: Cooperative, healthy appearing, comfortable, no acute distress and well developed Orientation: Patient oriented x3 Limitations: Limited range of motion due to shoulder pain Head: Normal to inspection Ears: Hearing grossly normal bilaterally Nose: Normal External nose present Face and sinus: Normal facial exam Eyes: Appearance normal, both eyes and all related structures Neck: Normal visual inspection and Yes full ROM Respiratory: Normal respiratory effort and able to speak in complete sentences. Skin: 12 o'clock of right breast 3cm circular area of flat erythema with warmth and slight ttp Neuro: Patient oriented x3 Extremities: normal to inspection PFSH Medical History (Updated 10/03/24 @ 14:16 by Jasmyn Parikh PA-C) Diabetes Anxiety PTSD (post-traumatic stress disorder) Anemia Panic attack History of PCOS History of anemia Surgical History (Updated 07/10/24 @ 11:32 by Rik Escamilla CMA) S/P colonoscopy Hx of cholecystectomy History of myringotomy History of tonsillectomy Family History (Reviewed 07/10/24 @ 11:27 by Rik Escamilla [facility]) Father Acute [place] CVD (cardiovascular disease) Mental health disorder Mother HTN (hypertension) Diabetes mellitus Depression Mental health disorder Maternal Grandmother Lung cancer Mental health disorder Paternal Grandmother Brain aneurysm CVD (cardiovascular disease) Mental health disorder Maternal Grandfather Mental health disorder Paternal Grandfather Mental health disorder Sister Mental health disorder Social History (Reviewed 07/10/24 @ 11:27 by Rik Escamilla [facility]) Housing: Apartment Are you a primary careers adviser to a significant other at home: No Do you presently have visiting nurse or other home services: No Alcohol intake: current Alcohol intake frequency: holidays/special occasions only Patient Tobacco Use Status: Former Tobacco user e-Cigarette/Vaping Use: Never Used Second Hand Smoke Exposure: Yes Substance Use Type: Marijuana service: No Current occupational status: employed Current occupation: [employer] Current occupational exposures/hazards: No Cognitive needs: No Hearing needs: No Vision needs: No Review of Systems Const All systems reviewed & are unremarkable except as noted in HPI and below Physical Exam Vital Signs: Last Vital Signs Temp 98.1 F 10/03/24 13:50 Pulse 81 10/03/24 13:50 BP 132/74 10/03/24 13:50 Pulse Ox 97 10/03/24 13:50 BMI result Body Mass Index 40.6 Assessment & Plan Assessment & Plan (1) Cellulitis: Code(s): L03.90 - Cellulitis, unspecified Qualifiers: Site of cellulitis: other site Qualified Code(s): L03.818 - Cellulitis of other sites Plan: The patient presents with right-sided breast cellulitis. Keflex is prescribed to treat the cellulitis, with instructions to take it every six hours for one week. Improvement is expected within a few days, though ice is recommended to help with inflammation/pain. Heat should be avoided as it may worsen the condition. Patient was informed and verbally consented to the use of an ambient scribe for clinic note documentation during this visit. Medications: New cephalexin 500 mg PO Q6H 28 caps 0RF Coding Level of Care Code Est Pt Level 3 (71504) Diagnoses Cellulitis of other specified site L03.818 Site of cellulitis: other site
--- OUTSIDE RECORDS SUMMARY | 2024-10-03 13:51 | XMS_ITS | Clinical Summary ---
Author Organization [facility] Address [address] [place] [address] Care Team Providers Care Manager Of Manufacturing Name Role Phone Unavailable Primary Care Provider [...] Vaccine (2023-2 5 season) 2024 Influenza Vaccine (Season Ended) 2025 HIB Vaccines Aged Out No longer eligi [...] age to complete this topic Meningococcal B Vaccine Aged Out No l onger eligible based on patient's age to complete [...]
== END 2024-10-03 14:21 | disposition home or self-care (01) ==
PROVIDERS: PCP Nurse Practitioner Family; Visit Provider Physician Assistant
DX: L03.818 Cellulitis of other sites (principal)

== ENCOUNTER → 2024-10-03 13:45 | Outpatient (BNVA) | payer BC, SELFPAY | PROVIDERS: PCP Nurse Practitioner Family; Visit Provider Physician Assistant ==

== ENCOUNTER → 2024-10-10 08:36 | Outpatient (BNVA) | payer BC, SELFPAY | PROVIDERS: PCP Nurse Practitioner Family; Visit Provider Nurse Practitioner Family ==

== ENCOUNTER 2024-10-14 06:47 | Outpatient (AMB) | payer BC, SELFPAY ==
--- OUTSIDE RECORDS SUMMARY | 2024-10-14 06:50 | XMS_ITS | Clinical Summary ---
Author Organization [facility] Address [address] [place] [address] Care Team Providers Care Family Assessment Worker Name Role Phone Unavailable Primary Care Provider [...]
--- NOTE | 2024-10-14 07:38 | MHC.PC.OV ---
Intake Visit Reasons: Discuss Weight Med Allergies Sulfa (Sulfonamide Antibiotics) Allergy (Intermediate, Verified 10/14/24 07:40) hives sulfamethoxazole [From BACTRIM] Allergy (Intermediate, Verified 10/14/24 07:40) HIVES trimethoprim [From BACTRIM] Allergy (Intermediate, Verified 10/14/24 07:40) HIVES lisinopril Adverse Reaction (Mild, Verified 10/14/24 07:40) Cough Medication List - Last Reconciled 10/14/24 by John Wright [facility] albuterol sulfate 90 mcg/actuation 1 inh inhalation QID PRN blood sugar diagnostic (FreeStyle Lite Strips) test blood sugar once a day blood-glucose meter (FreeStyle Lite Meter kit) As directed bupropion HCl SR 100 mg PO BID 30 days cephalexin 500 mg PO Q6H lancets (FreeStyle Lancets) Test blood sugar once a day metformin 500 mg PO DAILY omeprazole 20 mg PO BID PRN phentermine 15 mg PO DAILY 30 days rosuvastatin 5 mg PO DAILY sertraline 100 mg PO DAILY 30 days sumatriptan succinate take 1 tab at onset of headache; if no relief may repeat 1 tab after at least 2 hrs; max = 4 tabs/24 hr PO Tobacco use date assessed: 07/10/24 Dental Screening Dental Screen Date: 07/10/24 HPI Discuss Weight Med HPI Details History of Present Illness The patient is a 38-year-old female presenting with a request for phentermine for weight management related to her condition of morbid obesity. She has attempted multiple diet and exercise strategies to mitigate her obesity but has not found them effective. The patient?s cardiovascular history indicates no contraindications for the use of phentermine, with a normal echocardiogram from 2021 and a recent EKG showing normal sinus rhythm. She is aware of the potential side effects linked to phentermine usage. No other symptoms or relevant medical conditions were reported, as she denied experiencing chest pain, breathing difficulties, or gastrointestinal disturbances. Review of Systems - Cardiovascular: Denies chest pain, shortness of breath. - Gastrointestinal: Denies abdominal pain, blood in stool, constipation, diarrhea. Plan The patient will start on phentermine to assist with weight loss, considering previous lifestyle modifications have been unsuccessful. Past cardiac evaluations have cleared her for this treatment. Phentermine?s benefits and risks were clearly explained and acknowledged by the patient. Regular monitoring will be performed, and a follow-up is planned in four months to assess efficacy and possible side effects. Discussion Notes I discussed with the patient the potential of using phentermine to aid in weight management due to her morbid obesity, having explored other methods unsuccessfully. I explained the positive aspects phentermine could bring as a weight loss aid, its potential risks, especially pertaining to cardiac health, and that it must be part of a broader lifestyle strategy. I emphasized that it is not a standalone solution for obesity but could support her weight loss efforts. We reviewed her recent normal cardiac evaluations and no contraindication was noted. She indicated her understanding and consented to proceed with the trial. I have arranged for a follow-up appointment in four months to appraise her progress and address any emerging concerns. Patient Instructions - Start using prescribed phentermine as discussed. - Continue with dietary and exercise efforts alongside medication. - Watch for any symptoms like chest pain or dizziness and report them immediately. - Return for a scheduled follow-up in four months or sooner if you experience any issues. [facility] Medical History Diabetes Anxiety PTSD (post-traumatic stress disorder) Anemia Panic attack History of PCOS History of anemia Surgical History S/P colonoscopy Hx of cholecystectomy History of myringotomy History of tonsillectomy Family History Father Acute [place] CVD (cardiovascular disease) Mental health disorder Mother HTN (hypertension) Diabetes mellitus Depression Mental health disorder Maternal Grandmother Lung cancer Mental health disorder Paternal Grandmother Brain aneurysm CVD (cardiovascular disease) Mental health disorder Maternal Grandfather Mental health disorder Paternal Grandfather Mental health disorder Sister Mental health disorder Social History Housing: Apartment Are you a primary patient care specialist to a significant other at home: No Do you presently have visiting nurse or other home services: No Alcohol intake: current Alcohol intake frequency: holidays/special occasions only Patient Tobacco Use Status: Former Tobacco user e-Cigarette/Vaping Use: Never Used Second Hand Smoke Exposure: Yes Substance Use Type: Marijuana service: No Current occupational status: employed Current occupation: [employer] Current occupational exposures/hazards: No Cognitive needs: No Hearing needs: No Vision needs: No Questionnaire Thrive Questionnaire Date Thrive assessed: 07/10/24 I am a: Patient What is your living situation today?: I have a steady place to live Within the past 12 months, did the food you bought not last and you didn't have the money to get more?: Never true Within the past 12 months, did you worry whether your food would run out before you got money to buy more?: Never true Do you have trouble paying for medicines?: No Do you have trouble getting transportation to medical appointments?: No Do you have trouble paying your heating and electricity bill?: No Do you have trouble taking care of your child, family member or friend?: No Do you have trouble with day-to-day activities such as bathing, preparing meals, shopping, managing finances, etc.?: Yes Are you currently unemployed and looking for a job?: No Are you interested in more education?: No Please select the resources that you would like help with: None THRIVE Score: 0 RORO-7 AMB Questionnaire RORO-7 Date RORO - 7 assessed: 07/10/24 Source: Developed by Drs. Onur Connors, Kimberly Oseguera, Juan Manuel Lara and colleagues, with an educational leah from [employer]. Physical exam (Primary Care) Tobacco/Smoking Status: Tobacco use Status Tobacco use date assessed 07/10/24 07/10/24 11:27 Patient Tobacco Use Status Former Tobacco user 10/03/24 13:51 e-Cigarette/Vaping Use Never Used 07/10/24 11:24 Thrive Assessment: Date of Thrive Assessment Date Thrive assessed 07/10/24 07/10/24 11:27 Telehealth Telehealth Telehealth Platform: [facility] Location of provider rendering services: practice address Location of patient: address on file Patient Identification confirmed using: Name, : Yes Telehealth method: video Patient verbally consented to treatment: Yes Patient verbally consented to billing insurance company: Yes Patient informed of any privacy concerns related to visit: Yes Minutes spent on Phone/Video with Pt.: 12 Coding Level of Care Code Tele Est Pt Level 3 (30085) Diagnoses Morbid obesity E66.01 Assessment & Plan Assessment & Plan (1) Morbid obesity: Code(s): E66.01 - Morbid (severe) obesity due to excess calories Category: Medical Plan . Medications: New phentermine must administer 2 hours after breakfast 15 mg PO DAILY 30 caps 1RF 30 days
== END 2024-10-14 07:51 | disposition home or self-care (01) ==
LOC: HO.HMCC 06:48
PROVIDERS: PCP Nurse Practitioner Family; Visit Provider Nurse Practitioner Family
DX: E66.01 Morbid (severe) obesity due to excess calories (principal)

== ENCOUNTER → 2024-10-14 06:47 | Outpatient (BNVA) | payer BC, SELFPAY | PROVIDERS: PCP Nurse Practitioner Family; Visit Provider Nurse Practitioner Family | DX: Z13.89 Encounter for screening for other disorder (principal) ==

== ENCOUNTER 2024-11-10 10:41 | Emergency (ER) | payer BC, SELFPAY ==
--- NOTE | ~2024-11-10 | XR_ITS ---
CLINICAL HISTORY: trauma, pain 3 view right shoulder Comparison: None provided Findings: Bones intact. No dislocations. No significant arthritic change. No erosions. No radiopaque foreign body. IMPRESSION: 1. No acute findings This document has been electronically signed by: Aubrey Zaidi MD on 11/10/2024 12:42:03
--- NOTE | ~2024-11-10 | XR_ITS ---
CLINICAL HISTORY: pain after fall, decreased ROM 3 view right elbow Comparison: None provided Findings: No acute fractures or dislocations. No significant loss of joint space, osteophytes, or erosions. No joint effusion. No radiopaque foreign body. IMPRESSION: 1. No acute findings. This document has been electronically signed by: Aubrey Zaidi MD on 11/10/2024 12:40:55
[2024-11-10 11:21] VITALS: BP 115/75; PULSE 73; RESP 16; TEMP 36.3; O2SAT 97; BMI 39.0
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
[2024-11-10 13:01] VITALS: BP 115/75; PULSE 73; RESP 16; TEMP 36.3; O2SAT 97
[2024-11-10 13:16] VITALS: BP 115/75; PULSE 73; RESP 16; TEMP 36.3; O2SAT 97
== END 2024-11-10 13:28 | disposition home or self-care (01) ==
PROVIDERS: Emergency Provider Emergency Medicine; PCP Nurse Practitioner Family
DX: S50.01XA Contusion of right elbow, initial encounter (principal); S46.911A Strain of unspecified muscle, fascia and tendon at shoulder and upper arm level, right arm, initial encounter; M79.601 Pain in right arm; X58.XXXA Exposure to other specified factors, initial encounter; W01.119A Fall on same level from slipping, tripping and stumbling with subsequent striking against unspecified sharp object, initial encounter; Y93.14 Activity, water aerobics and water exercise; Y92.9 Unspecified place or not applicable; Y99.8 Other external cause status
CPT/HCPCS: 73030; 73080; 99283; 99284

== ENCOUNTER → 2024-11-10 11:24 | Outpatient (BNV) | payer BC, SELFPAY | PROVIDERS: Emergency Provider Emergency Medicine; PCP Nurse Practitioner Family; Visit Provider Radiology Diagnostic Radiology | DX: M25.511 Pain in right shoulder (principal); M25.521 Pain in right elbow; W19.XXXA Unspecified fall, initial encounter | CPT/HCPCS: 73030; 73080 ==

== ENCOUNTER 2024-11-18 08:24 | Outpatient (AMB) | payer BC, SELFPAY ==
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
--- OUTSIDE RECORDS SUMMARY | 2024-11-18 08:29 | XMS_ITS | Clinical Summary ---
Author Organization [facility] Address [address] [place] [address] Care Team Providers Care General Office Associate Name Role Phone Unavailable Primary Care Provider [...] (2023-2 5 season) 2024 Influenza Vaccine (#1) 2025 HIB Vaccines Aged Out No longer [...] 5 Years) and At-Risk Patients (6 to 49 Years) Aged Out No longer eligible b ased on patient's age to complete this topic RSV Immunization Patients Un barbie 20 months Aged Out No longer eligible b ased on patient's age to complete this topic Varicella Vaccines Aged Out No longer eligible based on patient's age to complete this topic
--- OUTSIDE RECORDS SUMMARY | 2024-11-18 08:29 | XMS_ITS | Clinical Summary ---
Author Organization [facility] Address [address] [place] [phone] Phone Care Team Providers Care Sheet Metal Contractor Name Role Phone Yoana Carballo MD Primary [...] 11/29/2009 1999, 06/07/1998, 08/05/1997, Additional history exists COVID-19 Vaccine ( - season) 2024 Influenza Vaccines (#1) 2024 MMR Vaccines Completed 05/07/1998, 12/05/1997 HIB [...] age to complete this topic Care Teams Sheet Metal Contractor Relationship Specialty Start Date End Date Yoana Carballo MD PCP - General 12/16/16
[2024-11-18 08:38] VITALS: BMI 39.0
== END 2024-11-18 09:23 | disposition home or self-care (01) ==
LOC: HO.HOS 08:24
PROVIDERS: PCP Nurse Practitioner Family; Visit Provider Physician Assistant
DX: M77.8 Other enthesopathies, not elsewhere classified (principal)
CPT/HCPCS: 99203

== ENCOUNTER 2024-11-25 14:56 | Outpatient (AMB) | payer BC, SELFPAY ==
--- NOTE | 2024-11-25 14:58 | HO.SPINEOV ---
Vital Signs 11/25/24 14:59 Height 5 ft 3 in Weight 220 lb BMI 39.0 Intake Visit Reasons: cervical radiculopathy Intake Note: Ms. Willingham is here today c/o neck pain and numbness down the arms. Bone Char Puller Required: No Allergies Sulfa (Sulfonamide Antibiotics) Allergy (Intermediate, Verified 11/25/24 15:00) hives sulfamethoxazole (From BACTRIM) Allergy (Intermediate, Verified 11/25/24 15:00) HIVES trimethoprim (From BACTRIM) Allergy (Intermediate, Verified 11/25/24 15:00) HIVES lisinopril Adverse Reaction (Mild, Verified 11/25/24 15:00) Cough Physical Exam Vital Signs: BMI result Body Mass Index 39.0 Assessment & Plan Assessment & Plan (1) Cervical myelopathy with cervical radiculopathy: Code(s): G95.9 - Disease of spinal cord, unspecified; M54.12 - Radiculopathy, cervical region Category: Medical Plan Dear BRIGETTE Melchor, Thank you for referring Miya to our office today. She is a pleasant 38-year-old female comes in today for evaluation of posterior neck pain and shooting pains into her right upper extremity. She reports this has been ongoing for the past few years, and was previously treated/evaluated by our colleagues at [facility]. When describing the shooting pain into her right upper extremity she states it starts in the right side of her neck shoots over her right shoulder and down the ventral surface of her arm terminating near the wrist. In addition to this, she occasionally experiences shooting pains that go straight into her elbow and down toward the 5th phalanx. She reports some numbness/tingling diffusely in her right hand at baseline, but is unable to identify any other specific finger involvement. She reports occasional balance issues, and has fallen a few times due to being off balance, but states that it is not something that is significantly impacting her ability to ambulate. She denies any issues with hand financial analyst accountant strength, and dexterity (buttoning buttons, writing, zipping up zippers), or bowel/bladder incontinence. She is unable to identify any time throughout the day where her pain is worse, and rates it as a 7/10 constant pain with occasional flare ups of pain that cause shooting pains into her right arm. She also reports that she will occasionally wake up througout the night in pain. She does have a pertinent past medical history of a left-sided CVA causing some right-sided lower extremity strength deficits. Given this, she states she does not have many symptoms from the CVA she had back when she was 19. She has been to physical therapy multiple times in the past for this issue, and is currently engaging in a course of physical therapy now. She has attempted cortisone injections with our colleagues at [facility], however states that these also were generally unhelpful. She has attempted ywyb-ghv-rauaulx medications including Tylenol and ibuprofen, and is currently prescribed naproxen for the pain. PMH: Asthma, GERD, depression, hyperlipidemia, T2DM (last A1C 6.1, currently on Metformin). Migraines. Hx CVA as a teenager. Social hx: The patient does not smoke, reports no substance use. Medications: See [employer] list. No anticoagulants per patient despite CVA when she was 19. Allergies: Sulfa Physical exam: The patient has about 4/5 strength in her right lower extremity diffusely, when compared to the left lower extremity. She has about 3/5 strength with right-sided hand financial analyst accountant in about 4/5 strength with wrist extension/flexion and interossei testing. The rest of her strength is 5/5. Her proximal muscle groups are not particularly weak compared to her other muscle groups. She ambulates well without a spastic or antalgic gait. She has some sensational deficits reported over the right hand on light touch examination, but denies any other sensation related issues. She has diffuse 3+ hyperreflexia. (+) bilateral Sherman's, (+) bilateral clonus, worse in the right side with 4-5 beats of clonus. (+) bilateral Babinski with big toe flaring upwards on both feet. Imaging review: MRI of the cervical spine completed at [facility] in November of 2022 shows straightening of the normal cervical lordosis with posterior disc bulging at C5-6, C6-7. The posterior disc bulge at C6-7 is larger, and effacing the ventral surface of the cord. There appears to be some T2 signal change behind the C6-7 disc space, however this is not reported by radiology. There is also severe right sided and moderate left sided foraminal stenosis at this level. In addition to this there is severe right sided, moderate left sided foraminal stenosis noted at C5-6. Impression: Miya is a pleasant 38-year-old female comes in today for evaluation of neck pain and shooting pains into her right upper extremity. This has been ongoing for the last few years, and she has attempted conservative management ad nauseam with our colleagues at [facility]. She has exhausted dutb-fwm-sswavgd medications, and is currently in another round of physical therapy. I am significantly concerned for worsening spinal cord compression given that the patient is significantly myelopathic on examination today. Her last MRI was completed a little over 2 years ago at [facility]. I would like to order a repeat cervical MRI for the patient to ensure that the degeneration and compression seen at C5-6, C6-7 has not worsened at all. It is likely that she is going to need surgery to address the compression seen on MRI imaging. We discussed the possibility of C5-7 ACDF, depending on her new MRI imaging. I utilized the spine models in office to explain the procedure to the patient and answered all questions she had related to the procedure. I will call her when we obtain a radiology read for her MRI. I will order her imaging as STAT given her examination findings and review of previous MRI imaging. Thank you for allowing us to care for your patient. The total time spent with this visit with this patient was 45 minutes reviewing history, physical exam, MRI imaging review, and implementation of treatment plan or further diagnostic testing Nathaniel Davis MD,PhD [facility] Orders: Orders MR cervical spine wo con Today G95.9 - Disease of spinal cord, unspecified Coding Level of Care Code New Pt Level 4 (45319) Diagnoses Cervical myelopathy with cervical radiculopathy G95.9; M54.12
[2024-11-25 14:59] VITALS: BMI 39.0
--- OUTSIDE RECORDS SUMMARY | 2024-11-25 15:41 | XMS_ITS | Clinical Summary ---
Author Organization [facility] Address [address] [place] [phone] Phone Care Team Providers Care Temporary Administrative Assistant Name Role Phone Yoana Carballo MD Primary [...] age to complete this topic Care Teams Temporary Administrative Assistant Relationship Specialty Start Date End Date Yoana Carballo MD PCP - General 12/16/16
--- OUTSIDE RECORDS SUMMARY | 2024-11-25 15:41 | XMS_ITS | Clinical Summary ---
Author Organization [facility] Address [address] [place] [address] Care Team Providers Care Head Miller Name Role Phone Unavailable Primary Care Provider [...] Cervical Cancer Screening: P ap Smear 12/01/2007 HIV Screening 04/09/2022 Hepatitis C Screening 04/09/2022 Social Influencers of Health Screening 04/09/2022 COVID-19 Vaccine ( - 2023-2 5 season) 2024 Depression Screening 05/08/2024 Influenza Vaccine (#1) 2025 HIB Vaccines Aged [...]
== END 2024-11-25 15:36 | disposition home or self-care (01) ==
LOC: HO.HNS 14:57
PROVIDERS: PCP Nurse Practitioner Family; Referring Provider Physician Assistant; Visit Provider Physician Assistant
DX: G95.9 Disease of spinal cord, unspecified (principal); M54.12 Radiculopathy, cervical region
CPT/HCPCS: 99204

== ENCOUNTER 2024-11-26 14:14 | Outpatient (REF) | payer BC, SELFPAY ==
--- NOTE | ~2024-11-26 | MR_ITS ---
EXAMINATION: MR CERVICAL SPINE WITHOUT CONTRAST CLINICAL INFORMATION: G95.9 . Disease of spinal cord. COMPARISON: None available. TECHNIQUE: MRI of the cervical spine was obtained using routine sequences without contrast. FINDINGS: Craniocervical junction is intact. Normal position of the cerebellar tonsils. Hyperintense T2 STIR signal within the right cerebellum no fully included in the fqzhk-gm-cedp. No bone marrow STIR signal abnormality. Marginal osteophyte formation and disc desiccation at C5-6 and C6-7 levels. Grade 1 retrolisthesis C5-6 and C6-7. Grade 1 anterolisthesis C4-5. C2-3: No disc herniation. No neuroforamina stenosis. C3-4: No disc herniation. No neuroforamina stenosis. C4-5: Grade 1 anterolisthesis. No disc herniation. No neuroforamina stenosis. C5-6: Right subarticular and foraminal broad-based disc herniation resulting in ventral deformity of the spinal cord. No cord signal abnormality. There is bilateral neuroforamina narrowing on a degenerative basis. There is CSF effacement of the thecal sac. C6-7: There is a broad-based disc herniation resulting in flattening of the spinal cord and CSF effacement of the thecal sac. Bilateral neuroforamina stenosis on a degenerative basis. C7-T1: No disc herniation. No neuroforamina stenosis. T1-2: Normal. No prevertebral compartment hematoma, mass or fluid collection. Flow-void signal within the main vessels is normal. Codominant vertebral arteries. MR/MR cervical spine wo con IMPRESSION: Cervical spondylosis C5-6 and C6-7 levels resulting in right subarticular and foraminal broad-based disc herniation and cord compression without or edema and or myelopathy and right greater than left neuroforamina stenosis C5-6 and bilateral neuroforamina stenosis C6-7. Electronically signed by: Jorge A Prajapati MD 11/26/2024 03:41 PM EDT
--- OUTSIDE RECORDS SUMMARY | 2024-11-26 15:29 | XMS_ITS | Clinical Summary ---
Author Organization [facility] Address [address] [place] [phone] Phone Care Team Providers Care Manager Legal Name Role Phone Yoana Carballo MD Primary [...] age to complete this topic Care Teams Manager Legal Relationship Specialty Start Date End Date Yoana Carballo MD PCP - General 12/16/16
--- OUTSIDE RECORDS SUMMARY | 2024-11-26 15:29 | XMS_ITS | Clinical Summary ---
Author Organization [facility] Address [address] [place] [address] Care Team Providers Care Mechanical Maintenance Foreman Name Role Phone Unavailable Primary Care Provider [...]
== END 2024-11-26 14:15 | disposition home or self-care (01) ==
LOC: HO.MRI 14:14
PROVIDERS: PCP Nurse Practitioner Family; Visit Provider Physician Assistant
DX: G95.9 Disease of spinal cord, unspecified (principal)
CPT/HCPCS: 72141

== ENCOUNTER → 2024-11-26 14:22 | Outpatient (BNV) | payer BC, SELFPAY | PROVIDERS: PCP Nurse Practitioner Family; Visit Provider Radiology Diagnostic Radiology | DX: M50.122 Cervical disc disorder at C5-C6 level with radiculopathy (principal) | CPT/HCPCS: 72141 ==

== ENCOUNTER 2025-01-02 08:27 | Outpatient (AMB) | payer BC, SELFPAY ==
--- NOTE | 2025-01-02 08:30 | A.OFFVIS_ITS ---
Vital Signs 01/02/25 08:31 Height 5 ft 3 in Weight 227 lb BMI 40.2 BP 112/74 Blood Pressure Location Rt brachial Position Sitting Pulse 80 Pulse Source Pulse Oximeter Pulse Oximetry (%) 98 Oxygen Delivery Method Room Air Intake Visit Reasons: INP-Headache Intake Note: NPV for headaches- internal - referred by PCP John Wright Executive Pilot Required: No Accompanied by: Self / Same As Patient Allergies Sulfa (Sulfonamide Antibiotics) Allergy (Intermediate, Verified 01/04/25 11:35) hives sulfamethoxazole (From BACTRIM) Allergy (Intermediate, Verified 01/04/25 11:35) HIVES trimethoprim (From BACTRIM) Allergy (Intermediate, Verified 01/04/25 11:35) HIVES lisinopril Adverse Reaction (Mild, Verified 01/04/25 11:35) Cough Medication List - Last Reconciled 01/02/25 by Norma Carrero, LUZ albuterol sulfate 90 mcg/actuation 1 inh inhalation QID PRN blood sugar diagnostic (FreeStyle Lite Strips) test blood sugar once a day blood-glucose meter (FreeStyle Lite Meter kit) As directed bupropion HCl SR 100 mg PO BID 30 days ibuprofen 800 mg PO Q8H PRN 30 days lancets (FreeStyle Lancets) Test blood sugar once a day metformin 500 mg PO DAILY omeprazole 20 mg PO BID PRN phentermine 15 mg PO DAILY 30 days rosuvastatin 5 mg PO DAILY sertraline 100 mg PO DAILY 30 days sumatriptan succinate take 1 tab at onset of headache; if no relief may repeat 1 tab after at least 2 hrs; max = 4 tabs/24 hr PO HPI Comments Details: History of Present Illness The patient is a left-handed 39-year-old female presenting with chronic headaches. With PMH notable for h/o stroke in 2005, HTN, systolic murmur, HLD, DM, obesity, anxiety, PTSD, depression, ADHD, PCOS, GERD, anemia, fatigue, and insomnia, post-COVID chronic SOB, fatty liver disease, cervicalgia with/ cervical myelopathy/radiculopathy, right shoulder tendinitis, ws/p cholecystectomy in 2014. She began experiencing short-lasting recurrent headaches with intense stabbing pain in the temporal region as early as age 19, without a known provoking cause. Then, a few years ago, she began experiencing a new, more migraine-like headache. Over time, both headaches have become more frequent and severe. A comprehensive review of both headaches is outlined below. Patient provides an overview of her previous 2004 stroke. 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 Patient reports that no definite cause for the embolic stroke was identified, but she was an active smoker at the time and had just started using a contraceptive patch. After recovery, she discontinued blood thinners but was advised against the use of estrogen-containing contraceptives. She states she was seeing cardiology and neurology for some time after the stroke, but then was lost to care d/t an insurance lapse. However, recently saw [facility] [place], who was concerned regarding signs of hyperreflexia, clonus, positive Babinski sign. Paternal grandfather has a h/o of fatal stroke in his late 70s, Paternal grandmother had a fatal ruptured intracranial aneurysm in her late 70s. Results * Cervical Spine MRI (November 26, 2024): Demonstrated cervical spondylosis with herniation at C5-6 and C6-7, causing cord compression without edema or myelopathy; right greater than left foraminal stenosis at C5-6, and bilateral foraminal stenosis at C6-7. * Records of prior brain MRI following stroke in 2004 are not immediately available. Review of Systems * Neurological: Reports headaches; previous stroke with residual memory diffic ulties. Dizziness, Occasional hand tremor. * Ophthalmologic: Dry eyes, eye pain/photophobia during headache, glasses * Respiratory: Cough, wheezing * ENT: Reports phonophobia during tension headaches. * Cardiovascular: Denies chest pain. * Gastrointestinal: Reports GERD, nausea, bloating, and episodic diarrhea related to diet. * Musculoskeletal: Reports neck pain and some rightsided hand weakness, tremors, and motor function impairment. Back pain. Balance difficulties. Swollen joints. * Endocrine: History of obesity and diabetes, reports successful weight management recently. * Psychiatric: Reports anxiety, PTSD symptoms, and depression. * Skin: Rash, itching Pertinent denials: Denies kidney stones, constipation, history of concussion, thyroid disorders. Family History * Paternal Grandfather: Stroke * Paternal Grandmother: Aneurysm leading to * Patient denies the following past medical history: Denies Headache questionnaire: * Types of headache disorders: 2 1st Typical headache characteristics: Onset: Age 19 Preceding causes: denies Prodrome symptoms: denies Aura: denies Pain intensity: severe- stops her in her tracks Location, quality, characteristics: unilateral (right or left-sided) temporal severe sharp stabbing x's 5-30 seconds Associated symptoms: mild watery eyes Postdrome: denies Triggers: denies Time of day: No specific time of day Duration and Frequency: occurs sporadically, typically 4-5 days a month. Attacks may recur after a couple of minutes. More recently, she has had an increase in the number of attacks in 1 day- one day, right-sided attacks came and went all day. Headache impact on patient's quality of life: in the moment, she cannot f unction, but can do her usual activities. 2nd Typical headache characteristics: Onset: a few years ago Preceding causes: none Prodrome symptoms: pressure, tightness, fogginess in her head Aura: flashing lights Pain intensity: moderate-severe Location, quality, characteristics: Ache and throbbing in the bifrontal and bitemporal Associated symptoms: photophobia, phonophobia, osmophobia, nausea, not right in space dizziness, lightheadedness, cognitive difficulties, activity intolerance, Postdrome: lingers some Triggers: stress, heat, sustained exercise or strenuous activity, elevated blood pressure Time of day: No specific time of day Duration and Frequency: 1-2 x's per week, lasting hours to 3 days, Headache impact on patient's quality of life: tries to push through Current headache treatments: Current acute medication use/interventions: Sumatriptan 25mg, which does help if caught at the onset of the headache. Ibuprofen 800 mg can be helpful. Current preventative medication use: Bupropion SR 100 mg b.i.d. for mood in ADHD. Magnesium 400 mg daily at bedtime for general health. Current non-pharmacological interventions: rest if able Headache Lifestyle Factors Caffeine: Consumes two to three cups of coffee daily in the morning. Nutrition: * Recent shifts resulting from a liquid-based weight loss program and phentermine trial * She denies known food allergies but reports episodic diet-related diarrhea. Substance use: * Previously smoked, quit after a stroke. * Rarely consumes alcohol socially and avoids smoking. Exercise: * Exercises frequently at work with job functions involving regular physical activity and sporadic high-intensity bouts. Goals include maintaining regular exercise to support weight management and overall well-being. Reproductive health: * Previously advised to avoid estrogenic supplements due to h/o stroke on OCP. 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 * Reports high job demands and routine physical activity embedded in job tasks. Sleep * Reports going to bed between 10:00 and 12:00 p.m., typically takes 1 to 2 hours to fall asleep. * Wakes at 6:00?6:30 a.m. * Reports difficulties falling and staying asleep, as well as some daytime fatigue, snoring, witnessed apneas, bruxism, and occasional restless leg syndrome symptoms. * Consumes caffeine during the morning and avoids alcohol and late-day caffeine. * No naps; a regular work week contributes to a structured, regular sleep-wake cycle. [facility] Medical History Diabetes Anxiety PTSD (post-traumatic stress disorder) Anemia Panic attack History of PCOS History of anemia Surgical History S/P colonoscopy Hx of cholecystectomy History of myringotomy History of tonsillectomy Family History Father Acute PA CVD (cardiovascular disease) Mental health disorder Mother HTN (hypertension) Diabetes mellitus Depression Mental health disorder Maternal Grandmother Lung cancer Mental health disorder Paternal Grandmother Brain aneurysm CVD (cardiovascular disease) Mental health disorder Maternal Grandfather Mental health disorder Paternal Grandfather Mental health disorder Sister Mental health disorder Social History Housing: Apartment Are you a primary careers adviser to a significant other at home: No Do you presently have visiting nurse or other home services: No Alcohol intake: current Alcohol intake frequency: holidays/special occasions only Patient Tobacco Use Status: Former Tobacco user e-Cigarette/Vaping Use: Never Used Second Hand Smoke Exposure: Yes Substance Use Type: Marijuana service: No Current occupational status: employed Current occupation: [employer] Current occupational exposures/hazards: No Cognitive needs: No Hearing needs: No Vision needs: No Physical Exam Vital Signs: Last Vital Signs Pulse 80 01/02/25 08:31 BP 112/74 01/02/25 08:31 Pulse Ox 98 01/02/25 08:31 Oxygen Delivery Method Room Air 01/02/25 08:31 BMI result Body Mass Index 40.2 Const Orientation/consciousness: patient oriented x3 Resp Effort & Inspection: normal respiratory effort and able to speak in complete sentences Neuro Other: RUE gross MS: 5/5 with negative pronator drift RUE hand strength: 4+-5-/5 RLE MS: 5-/5 LLE MS: 5/5 RUE: Decreased peripheral sensation RLE: + Babinski sign BUE Keyla: Negative General: patient oriented x3 Cranial nerves: Yes Individual cranial nerve findings present II: normal, III: normal, IV: normal, V: normal, : normal, VII: abnormal (Mild right facial droop), VIII: normal, IX: normal, X: normal, XI: normal and XII: normal Cognition (Neuro): normal cognition Gait exam (Neuro): Normal gait present Motor exam (neuro): Pronator motor function not present and no tremor noted Deep tendon reflexes (DTR's): Right triceps reflex intensity grade: 3+, Left triceps reflex intensity grade: 2+, Rt Biceps (C5, C6): 3+, Left biceps reflex intensity grade: 2+, Right brachioradialis reflex intensity grade: 3+, Left brachioradialis reflex intensity grade: 2+, Right patellar reflex intensity grade: 4+ and Left patellar reflex intensity grade: 2+ Coordination: [id number] test normal, tandem gait normal and Romberg test negative Pupils: Normal pupillary reactivity/response: bilateral Psych Appearance: grossly normal Mental Status: mental status grossly normal Speech and movement: Clear speech present Affect: normal affect Attitude: cooperative Thought process: Normal thought process present Assessment & Plan Assessment & Plan (1) Worsening headaches: Code(s): R51.9 - Headache, unspecified Category: Medical (2) Family history of intracranial hemorrhage: Code(s): Z82.3 - Family history of stroke Category: Medical (3) Snoring: Code(s): R06.83 - Snoring Category: Medical (4) Fatigue: Code(s): R53.83 - Other fatigue Category: Medical Qualifiers: Fatigue type: unspecified Qualified Code(s): R53.83 - Other fatigue (5) Sleep difficulties: Comment: Rogers sleepiness scale- 11 Code(s): G47.9 - Sleep disorder, unspecified Category: Medical (6) Stabbing headache: Code(s): G44.85 - Primary stabbing headache Category: Medical (7) Migraine with aura, not intractable, without status migrainosus: Code(s): G43.109 - Migraine with aura, not intractable, without status migrainosus Category: Medical Plan Discussion Notes I discussed my concern regarding the worsening of patient's chronic headaches, a s well as physical exam showing RUE decreased sensation, right weakened hand grasp, asymmetric hyperreflexia with RLE clonus, which may potentially be symptomatic of past cerebrovascular events. I have recommended obtaining an updated brain MRI with MRA to assess for current vascular or structural lesions, given the patient's history of stroke and family history of cerebrovascular incidents. We discussed the option of trying propranolol for potential headache prevention as well as assisting with anxiety mitigation. Discussed continuing as low-dose sumatriptan, being mindful of the history of stroke. Emphasized the need for a sleep study to potentially address sleep apnea, which may be contributing to the frequency and severity of headaches. The patient acknowledged understanding of the discussed diagnostics and treatments and expressed interest in pursuing recommended interventions. Patient was informed and verbally consented to the use of an ambient scribe for clinic note documentation during this visit. You are advised to undergo the following: MRI brain with and without contrast MRA brain without contrast Home sleep study Headache Management Tips Combining good self-care with some helpful tools can make managing headaches much easier. Healthy Habits ? Eat a balanced diet ? Drink enough water throughout the day, typically at least 64 oz of fluid per day ? Get regular, adequate sleep consisting of 7-9 hours of sleep per night ? Stay active with routine physical activity, typically at least 30 minutes 5 days per week ? Stay connected with friends and family, enjoy meaningful activities, and take care of your mood Tracking Your Headaches ? Write down when headaches happen, what helps, and any side effects of new treatments ? Tracking is most important after changes in your treatment plan ? Options: - Apps such as Migraine Mickey - A simple paper calendar Non-Medication Strategies ? Light sensitivity: special glasses may help (blue-light or FL-41 filters, green lenses) or green-light therapy - Avoid wearing dark sunglasses indoors ? Sound sensitivity: noise-canceling earplugs can reduce bothersome noise ? Neuromodulation devices: certain medical devices can be used alone or with medications to lower headache frequency and severity ? Neuromodulation devices: specific medical devices can be used alone or with medications to lower headache frequency and severity These strategies may not stop every attack, but over time, they can reduce headache frequency, intensity, and impact. For acute (as needed) headache treatment: It is important to take acute medications at the first sign of headache. However, please be aware that frequently using most acute medications may increase the frequency of your headache attacks, as well as make your other treatments less effective. * Continue Sumatriptan 25 mg at onset of headache, may repeat in 2 hours. Max of 2 tabs (200mg) per 24 hours. * May take sumatriptan with OTC Tylenol 650-1,000mg every 4-6 hours, Ibuprofen (liquid gels) 600mg every 6 hours, or Naproxen (liquid gels) 440mg q 12 hrs prn. * Potential adverse effects of triptans, include but are not limited to nausea, fatigue, chest tightness/tingling (usually passes within a few minutes), medication overuse headaches. Previous acute migraine medication trials: Cyclobenzaprine ineffective, indomethacin-unsure of effect, prednisone/dexamethasone-unsure of effect Acute migraine medication contraindications: Would avoid DHE due to history of stroke For headache prevention medication: Preventative medications should be taken routinely as prescribed for best effect, it may take several weeks for full effect to take effect. * OTC Riboflavin 400mg daily in the morning * This is generally well tolerated, however some people may experience mild abdominal discomfort from use. * This will cause your urine to become bright yellow or orange, which is expected and not of any concern. * OTC Magnesium 400mg daily at bedtime * Magnesium comes in many subtypes, such as magnesium oxide, glycinate, citrate, and even try magnesium combinations. Additionally magnesium comes in many forms, including tablets, capsules, powders or even liquid formulations. There is not a specific magnesium subtype or form known to be significantly more effective than another. Rather, the magnesium subtype inform that you best tolerate, is the best version for you. * Possible side effects of magnesium include, but are not limited to, GI upset, abdominal cramping, loose stools, and diarrhea * OTC Co Q10 400 mg daily in the morning * Take with higher fat foods * Start Propranolol ER 60 mg daily at bedtime. * Potential side effects include but are not limited to fatigue, lightheadedness, low blood pressure, low heart rate, asthma/respiratory disease exacerbation, weight gain, hair loss, sexual dysfunction. Previous migraine prevention medication trials: Topamax- ineffective and not tolerated. Gabapentin ineffective Migraine prevention medication contraindications: Amitriptyline/TCAs due to phentermine use. We will follow-up upon review of above and with a follow-up clinic visit in 3-6 months or sooner as needed. Orders: Orders MR head/brain wo/w con 01/02/25 R51.9 - Headache, unspecified, Z82.3 - Family history of stroke, Z86.73 - Personal history of transient ischemic attack (TIA), and cerebral infarction without residual deficits, R29.2 - Abnormal reflex, E66.01 - Morbid (severe) obesity due to excess calories, E11.9 - Type 2 diabetes mellitus without complications MR head/brain wo con 01/02/25 R51.9 - Headache, unspecified, Z82.3 - Family history of stroke, Z86.73 - Personal history of transient ischemic attack (TIA), and cerebral infarction without residual deficits, R29.2 - Abnormal reflex, E66.01 - Morbid (severe) obesity due to excess calories, E11.9 - Type 2 diabetes mellitus without complications RT home sleep study 01/02/25 R06.83 - Snoring, R53.83 - Other fatigue, G47.9 - Sleep disorder, unspecified Medications: New propranolol ER 60 mg PO BEDTIME 30 caps 1RF 30 days Changed From sumatriptan succinate take 1 tab at onset of headache; if no relief may repeat 1 tab after at least 2 hrs; max = 4 tabs/24 hr PO 10 tabs 0RF To sumatriptan succinate take 1 tab at onset of headache; if no relief may repeat 1 tab after at least 2 hrs; max = 4 tabs/24 hr PO 12 tabs 1RF Coding Level of Care Code New Pt Level 4 (84482) Diagnoses Worsening headaches R51.9 Family history of intracranial hemorrhage Z82.3 Snoring R06.83 Fatigue, unspecified type R53.83 Fatigue type: unspecified Sleep difficulties G47.9 Stabbing headache G44.85 Migraine with aura, not intractable, without status migrainosus G43.109
[2025-01-02 08:31] VITALS: BP 112/74; PULSE 80; O2SAT 98; BMI 40.2
--- OUTSIDE RECORDS SUMMARY | 2025-01-02 09:05 | XMS_ITS | Clinical Summary ---
Author Organization [facility] Address [address] [place] [id number] Phone Care Team Providers Care Resume Specialist Name Role Phone Yoana Carballo MD Primary [...] 11/29/2009 1999, 06/07/1998, 08/05/1997, Additional history exists HPV Vaccines (1 - 3-dose SCDM series) 2013 COVID-19 Vaccine ( - season) 2024 Influenza Vaccines (#1) 2024 MMR Vaccines Completed 05/07/1998, 12/05/1997 HIB Vaccines Aged Out 06/07/1998 No longer eligi ble based on patient's age to complete this topic IPV Vaccines Completed 06/07/1998, 07/08, 06/07/1997, Additional history exists Hepatitis B Vaccines Completed 10/07/1998, 06/08/1998, 11/27/1997 Hepatitis A Vaccines Aged Out No long [...] age to complete this topic Care Teams Resume Specialist Relationship Specialty Start Date End Date Yoana Carballo MD PCP - General 12/16/16
--- OUTSIDE RECORDS SUMMARY | 2025-01-02 09:05 | XMS_ITS | Encounter Summary ---
Author Organization [facility] Address [address] [place] [phone] Phone Care Team Providers Care Zigzag Tunnel Elastic Operator Name Role Phone Yoana Carballo MD Primary Care Provider Unava ilable Encounter Details Date Type Department Care Team (Late st Contact Info) Description 12/22/2016 Conversion Encounter [facility] - [address] [phone] Social History Tobacco Use Types Packs/Day Years [...] on filedocumented in this encounter Care Teams Zigzag Tunnel Elastic Operator Relationship Specialty Start Date End Date Yoana Carballo MD PCP - General 12/16/16 documented as of this encounter
--- OUTSIDE RECORDS SUMMARY | 2025-01-02 09:05 | XMS_ITS | Clinical Summary ---
Author Organization [facility] Address [address] [place] [address] Care Team Providers Care Oiler Bander Name Role Phone Unavailable Primary Care Provider [...] Cervical Cancer Screening: P ap Smear 12/01/2007 COVID-19 Vaccine ( - 2023-2 5 season) [...]
== END 2025-01-02 10:02 | disposition home or self-care (01) ==
LOC: HO.HSMS 08:28
PROVIDERS: PCP Nurse Practitioner Family; Visit Provider Nurse Practitioner Family
DX: R51.9 Headache, unspecified (principal); Z82.3 Family history of stroke; R06.83 Snoring; R53.83 Other fatigue; G47.9 Sleep disorder, unspecified; G44.85 Primary stabbing headache; G43.109 Migraine with aura, not intractable, without status migrainosus
CPT/HCPCS: 99204

== ENCOUNTER 2025-01-04 09:59 | Outpatient (AMB) | payer BC, SELFPAY ==
--- OUTSIDE RECORDS SUMMARY | 2025-01-04 10:02 | XMS_ITS | Encounter Summary ---
Author Organization [facility] Address [address] [place] [phone] Phone Care Team Providers Care Management Trainer Name Role Phone Yoana Carballo MD Primary Care Provider Unava ilable Encounter Details Date Type Department Care Team (Late st Contact Info) Description 12/22/2016 Conversion Encounter [facility] - [address] [phone] Social History Tobacco Use Types Packs/Day Years [...] on filedocumented in this encounter Care Teams Management Trainer Relationship Specialty Start Date End Date Yoana Carballo MD PCP - General 12/16/16 documented as of this encounter
--- OUTSIDE RECORDS SUMMARY | 2025-01-04 10:02 | XMS_ITS | Clinical Summary ---
Author Organization [facility] Address [address] [place] [address] Care Team Providers Care Health Care Marketing Manager Name Role Phone Unavailable Primary Care Provider [...]
--- OUTSIDE RECORDS SUMMARY | 2025-01-04 10:02 | XMS_ITS | Clinical Summary ---
Author Organization [facility] Address [address] [place] [phone] Phone Care Team Providers Care Sole Splitter Name Role Phone Yoana Carballo MD Primary [...] age to complete this topic Care Teams Sole Splitter Relationship Specialty Start Date End Date Yoana Carballo MD PCP - General 12/16/16
[2025-01-04 11:11] VITALS: BP 110/80; PULSE 73; RESP 15; TEMP 36.8; O2SAT 98; BMI 40.0
--- NOTE | 2025-01-04 11:11 | MHC.OFFWIV ---
Intake Vital Signs 01/04/25 11:11 Height 5 ft 3 in Weight 226 lb BMI 40.0 BP 110/80 Blood Pressure Location Rt brachial Position Sitting Respiration 15 Pulse 73 Pulse Source Pulse Oximeter Temp 98.2 F Temp Source Oral Pulse Oximetry (%) 98 Oxygen Delivery Method Room Air Intake Visit Reasons: EP Burn Intake Note: Pt is here today c/o sunburn Lt lower buttocks since last week Patient Tobacco Use Status: Former Tobacco user Allergies Sulfa (Sulfonamide Antibiotics) Allergy (Intermediate, Verified 01/04/25 11:35) hives sulfamethoxazole (From BACTRIM) Allergy (Intermediate, Verified 01/04/25 11:35) HIVES trimethoprim (From BACTRIM) Allergy (Intermediate, Verified 01/04/25 11:35) HIVES lisinopril Adverse Reaction (Mild, Verified 01/04/25 11:35) Cough Medication List - Last Reconciled 01/04/25 by BRITTANY ShawP- albuterol sulfate 90 mcg/actuation 1 inh inhalation QID PRN blood sugar diagnostic (FreeStyle Lite Strips) test blood sugar once a day blood-glucose meter (FreeStyle Lite Meter kit) As directed bupropion HCl SR 100 mg PO BID 30 days ibuprofen 800 mg PO Q8H PRN 30 days lancets (FreeStyle Lancets) Test blood sugar once a day metformin 500 mg PO DAILY omeprazole 20 mg PO BID PRN phentermine 15 mg PO DAILY 30 days propranolol ER 60 mg PO BEDTIME 30 days rosuvastatin 5 mg PO DAILY sertraline 100 mg PO DAILY 30 days sumatriptan succinate take 1 tab at onset of headache; if no relief may repeat 1 tab after at least 2 hrs; max = 4 tabs/24 hr PO HPI HPI Comments History of Present Illness Details History - The patient is a 39-year-old female presenting with a persistent lesion from sunburn, L thigh - Sunburn occurred one week ago; the majority has resolved with the exception of one sore area. - Attempted treatments with aloe vera and creams provided no relief. - Singular blister appeared, now peeling; patient reports soreness. - Immunizations are up-to-date, including tetanus. Review of Systems General: denies fever, chills. - Integumentary: Reports persistent sore and peeling over sunburned area since one week, denies other dermatological issues. Physical Exam L lateral thigh is an erythematous tender area w/ breaks in the skin. Mild warmth. No drainage. Discussion Notes The patient and I discussed the diagnosis of persistent dermal irritation following sunburn. Various treatment strategies were reviewed, including the initiation of a course of steroids and a low-dose antibiotic (cefalexan) to manage the inflammation and prevent bacterial infection. I instructed the patient on using CeraVe or A&D ointment for moisturizing, as these lack drying ingredients that could worsen the lesion's condition. I explained the importance of wearing loose, soft fabrics to minimize irritation and advised the patient to avoid additional topical irritants. Furthermore, I provided guidance on the use of prednisone, emphasizing the need to take it with food to avoid gastrointestinal upset, and clarified dosing for cefalexan. My discussion included an agreement with the patient to follow up if symptoms persist or worsen. We confirmed that the patient is current with her tetanus immunization. Patient was given time to ask questions. All questions were answered to their satisfaction. Assessment and Plan 1. Sunburn - Prescribed prednisone and cefalexan. - Use CeraVe or A&D ointment topically. - Wear loose clothing to avoid irritation. Patient Instructions - Take prednisone once a day with food for 5 days. - Take cefalexan twice a day for 5 days. - Apply CeraVe or A&D ointment daily to the sore area. - Wear soft, loose clothes. - Avoid using lotions with drying agents. - Seek care if the area does not improve or worsens. Consent Patient was informed and verbally consented to the use of an ambient scribe for clinic note documentation during this visit. [facility] Medical History Diabetes Anxiety PTSD (post-traumatic stress disorder) Anemia Panic attack History of PCOS History of anemia Surgical History S/P colonoscopy Hx of cholecystectomy History of myringotomy History of tonsillectomy Family History Father Acute [place] CVD (cardiovascular disease) Mental health disorder Mother HTN (hypertension) Diabetes mellitus Depression Mental health disorder Maternal Grandmother Lung cancer Mental health disorder Paternal Grandmother Brain aneurysm CVD (cardiovascular disease) Mental health disorder Maternal Grandfather Mental health disorder Paternal Grandfather Mental health disorder Sister Mental health disorder Social History Housing: Apartment Are you a primary patient care representative to a significant other at home: No Do you presently have visiting nurse or other home services: No Alcohol intake: current Alcohol intake frequency: holidays/special occasions only Patient Tobacco Use Status: Former Tobacco user e-Cigarette/Vaping Use: Never Used Second Hand Smoke Exposure: Yes Substance Use Type: Marijuana service: No Current occupational status: employed Current occupation: [employer] Current occupational exposures/hazards: No Cognitive needs: No Hearing needs: No Vision needs: No Physical Exam Vital Signs: Last Vital Signs Temp 98.2 F 01/04/25 11:11 Pulse 73 01/04/25 11:11 Resp 15 01/04/25 11:11 BP 110/80 01/04/25 11:11 Pulse Ox 98 01/04/25 11:11 Oxygen Delivery Method Room Air 01/04/25 11:11 BMI result Body Mass Index 40.0 Skin Full body images:  1. area of concern Assessment & Plan Assessment & Plan (1) Cellulitis: Code(s): L03.90 - Cellulitis, unspecified Qualifiers: Site of cellulitis: other site Qualified Code(s): L03.818 - Cellulitis of other sites (2) Sunburn: Code(s): L55.9 - Sunburn, unspecified Plan . Medications: New prednisone 20 mg PO DAILY 5 tabs 0RF cephalexin 500 mg PO Q12H 10 caps 0RF 5 days Coding Level of Care Code Est Pt Level 3 (49882) Diagnoses Cellulitis of other specified site L03.818 Site of cellulitis: other site Sunburn L55.9
== END 2025-01-04 11:41 | disposition home or self-care (01) ==
LOC: HO.HMCWIC 09:59
PROVIDERS: PCP Nurse Practitioner Family; Visit Provider Nurse Practitioner Family
DX: L03.818 Cellulitis of other sites (principal); L55.9 Sunburn, unspecified

== ENCOUNTER 2025-01-14 15:00 | Outpatient (AMB) | payer OTHER, SELFPAY ==
[2025-01-14 15:09] VITALS: BP 118/84; PULSE 74; RESP 16; TEMP 36.8; O2SAT 97; BMI 39.7
--- NOTE | 2025-01-14 15:09 | MHC.PC.OV ---
Vital Signs 01/14/25 15:09 Height 5 ft 3 in Weight 224 lb BMI 39.7 BP 118/84 Blood Pressure Location Lt brachial Respiration 16 Pulse 74 Pulse Source Pulse Oximeter Temp 98.3 F Temp Source Oral Pulse Oximetry (%) 97 Intake Visit Reasons: PE Supervisor Intelligence Analyst Required: No Accompanied by: Self / Same As Patient Allergies Sulfa (Sulfonamide Antibiotics) Allergy (Intermediate, Verified 01/14/25 15:46) hives sulfamethoxazole (From BACTRIM) Allergy (Intermediate, Verified 01/14/25 15:46) HIVES trimethoprim (From BACTRIM) Allergy (Intermediate, Verified 01/14/25 15:46) HIVES lisinopril Adverse Reaction (Mild, Verified 01/14/25 15:46) Cough Medication List - Last Reconciled 01/14/25 by John Wright [facility] albuterol sulfate 90 mcg/actuation 1 inh inhalation QID PRN blood sugar diagnostic (FreeStyle Lite Strips) test blood sugar once a day blood-glucose meter (FreeStyle Lite Meter kit) As directed ibuprofen 800 mg PO Q8H PRN 30 days lancets (FreeStyle Lancets) Test blood sugar once a day metformin 500 mg PO DAILY omeprazole 20 mg PO BID PRN phentermine 15 mg PO DAILY 30 days rosuvastatin 5 mg PO DAILY sertraline 100 mg PO DAILY 30 days sumatriptan succinate take 1 tab at onset of headache; if no relief may repeat 1 tab after at least 2 hrs; max = 4 tabs/24 hr PO Tobacco use date assessed: 01/14/25 Dental Screening Dental Screen Date: 01/14/25 Did you have a dental visit in the last 12 months?: No Did you have a dental problem in the last 6 months where you did not have access to dental care?: No Was dental information given to patient?: No HPI PE HPI Details History of Present Illness The patient is a 39-year-old female presenting with a physical examination. She has a history of diabetes mellitus, with a current A1c of 6.2, indicating good glycemic control. She denies any symptoms of neuropathy, polyuria, or polydipsia, and reports positive sensation with monofilament testing. She is due for her annual eye exam this month and plans to schedule it with her dynamicist. The patient is also managing obesity, which was noted during the physical examination. She is currently going through a divorce but reports managing well without the need for therapy(declined). Pt is due for a repeat pap, training and development manager referral placed Health Maintenance - Annual eye exam due this month Social History - Family status: Currently going through a divorce, managing well without therapy. Review of Systems - General: Denies fever or chills. - Eyes: Denies blurred vision. - Cardiovascular: Denies chest pain. - Respiratory: Denies dyspnea. - Gastrointestinal: Denies abdominal pain, blood in stool, constipation, or diarrhea. - Neurological: Denies neuropathy. Physical Exam General: Cooperative, healthy appearing, comfortable, no acute distress and well developed, morbidly obese Orientation: Patient oriented x3 Limitations: No limitations Head: Normal to inspection Ears: Hearing grossly normal bilaterally Nose: Normal external nose present Face and sinus: Normal facial exam Eyes: Appearance normal, both eyes and all related structures Neck: Normal visual inspection and Yes full ROM Respiratory: Normal respiratory effort and able to speak in complete sentences. Clear to auscultation bilaterally Cardiovascular: Regular rate and rhythm. Normal S1 and S2 GI: Normal to inspection. Soft to palpation and nontender Skin: No rashes or lesions noted Neuro: Patient oriented x3 Extremities: Normal to inspection, positive sensation with use of monofilament, feet were intact Results - Labs: Hemoglobin A1c is 6.2%. Plan 1. Diabetes Mellitus The patient's diabetes mellitus is currently well-controlled with an A1c of 6.2%. She is advised to continue her current management plan and to schedule her annual eye exam this month. 2. Obesity The patient is noted to be morbidly obese, and lifestyle modifications should be encouraged to manage her weight. Discussion Notes During the visit, we discussed the importance of maintaining good glycemic control and the need for regular eye exams to monitor for diabetic retinopathy. We also addressed the patient's obesity and encouraged lifestyle modifications to aid in weight management. Patient Instructions - Continue current diabetes management plan. - Schedule and attend annual eye exam this month. - Consider lifestyle changes to manage weight. [facility] Medical History Diabetes Anxiety PTSD (post-traumatic stress disorder) Anemia Panic attack History of PCOS History of anemia Surgical History S/P colonoscopy Hx of cholecystectomy History of myringotomy History of tonsillectomy Family History (Reviewed 01/14/25 @ 15:36 by John Wright [facility]) Father Acute [place] CVD (cardiovascular disease) Mental health disorder Mother HTN (hypertension) Diabetes mellitus Depression Mental health disorder Maternal Grandmother Lung cancer Mental health disorder Paternal Grandmother Brain aneurysm CVD (cardiovascular disease) Mental health disorder Maternal Grandfather Mental health disorder Paternal Grandfather Mental health disorder Sister Mental health disorder Social History Housing: Apartment Are you a primary manager critical care unit to a significant other at home: No Do you presently have visiting nurse or other home services: No Alcohol intake: current Alcohol intake frequency: holidays/special occasions only Patient Tobacco Use Status: Former Tobacco user e-Cigarette/Vaping Use: Never Used Second Hand Smoke Exposure: Yes Substance Use Type: Marijuana service: No Current occupational status: employed Current occupation: [employer] Current occupational exposures/hazards: No Cognitive needs: No Hearing needs: No Vision needs: No Questionnaire PHQ-9 Over the last 2 weeks, how often have you been bothered by any of the following problems? 1. Little interest or pleasure in doing things: not at all 2. Feeling down, depressed, or hopeless: not at all 3. Trouble falling or staying asleep, or sleeping too much: not at all 4. Feeling tired or having little energy: not at all 5. Poor appetite or overeating: not at all 6. Feeling bad about yourself - or that you are a failure or have let yourself or your family down: not at all 7. Trouble concentrating on things, such as reading the newspaper or watching television: not at all 8. Moving or speaking so slowly that other people could have noticed. Or the opposite - being so fidgety or restless that you have been moving around a lot more than usual: not at all 9. Thoughts that you would be better off or of hurting yourself in some way: not at all Total score: 0 Depression Screening Interpretation: Negative Depression Screening Done: Yes 76073 - PHQ-9 Billing: Yes Source: Developed by Drs. Onur Connors, Juan Manuel Hannon and colleagues, with an educational leah from [employer]. Thrive Questionnaire Date Thrive assessed: 07/10/24 I am a: Patient What is your living situation today?: I have a steady place to live Within the past 12 months, did the food you bought not last and you didn't have the money to get more?: Never true Within the past 12 months, did you worry whether your food would run out before you got money to buy more?: Never true Do you have trouble paying for medicines?: No Do you have trouble getting transportation to medical appointments?: No Do you have trouble paying your heating and electricity bill?: No Do you have trouble taking care of your child, family member or friend?: No Do you have trouble with day-to-day activities such as bathing, preparing meals, shopping, managing finances, etc.?: Yes Are you currently unemployed and looking for a job?: No Are you interested in more education?: No Please select the resources that you would like help with: None THRIVE Score: 0 AUDIT C Alcohol Use Questionnaire (AUDIT-C) 2. How many drinks containing alcohol do you have on a typical day when you are drinking?: 1 or 2 3. How often do you have six or more drinks on one occasion?: Less than monthly Total Score: 1 Score Reviewed/Action Taken: Yes RORO-7 AMB Questionnaire RORO-7 Date RORO - 7 assessed: 01/14/25 Feeling nervous, anxious, or on edge: 0 = Not at all Not being able to stop or control worryin = Not at all Worrying too much about different things: 0 = Not at all Trouble relaxin = Not at all Being so restless that it is hard to sit still: 0 = Not at all Becoming easily annoyed or irritable: 0 = Not at all Feeling afraid as if something awful might happen: 0 = Not at all Total RORO-7 score (0-4 normal; 5-9 mild; 10-14 moderate; 15-21 severe): 0 Source: Developed by Drs. Onur Connors, Juan Manuel Hannon and colleagues, with an educational leah from [employer]. RORO-7 Assessment Billing RORO-7 Assessment Tool: RORO-7 Assessment 29096 Physical exam (Primary Care) Vital Signs: Last Vital Signs Temp 98.3 F 01/14/25 15:09 Pulse 74 01/14/25 15:09 Resp 16 01/14/25 15:09 BP 118/84 01/14/25 15:09 Pulse Ox 97 01/14/25 15:09 BMI result Body Mass Index 39.7 Tobacco/Smoking Status: Tobacco use Status Tobacco use date assessed 01/14/25 01/14/25 15:15 Patient Tobacco Use Status Former Tobacco user 01/14/25 15:15 e-Cigarette/Vaping Use Never Used 01/14/25 15:15 PHQ-9: PHQ-9 Score PHQ-9: Total score 0 01/14/25 15:15 Depression Screening Interpretation: Negative Thrive Assessment: Date of Thrive Assessment Date Thrive assessed 07/10/24 01/14/25 15:15 Coding Level of Care Code Est Pt Level 3 (12794) Est Pt Prev Care 18-39y(63743) Diagnoses Diabetes E11.9 Encounter for routine adult physical exam with abnormal findings Z00. Vitamin D deficiency E55.9 Additional Codes RORO-7 Assessment Billing - RORO-7 Assessment Tool: RORO-7 Assessment 96160 ([id number]) PHQ-9 - 46545 - PHQ-9 Billing: Yes ([id number]) Assessment & Plan Assessment & Plan (1) Diabetes: Code(s): E11.9 - Type 2 diabetes mellitus without complications Category: Medical (2) Encounter for routine adult physical exam with abnormal findings: Code(s): Z00.01 - Encounter for general adult medical examination with abnormal findings Category: Medical (3) Vitamin D deficiency: Code(s): E55.9 - Vitamin D deficiency, unspecified Category: Medical Plan . Orders: Orders Complete Blood Count Auto Diff Today E11.9 - Type 2 diabetes mellitus without complications, Z00.01 - Encounter for general adult medical examination with abnormal findings Lipid Panel Today E11.9 - Type 2 diabetes mellitus without complications, Z00.01 - Encounter for general adult medical examination with abnormal findings Vitamin D 25-OH Total Today E55.9 - Vitamin D deficiency, unspecified Comprehensive [place]. Panel Fast Today E11.9 - Type 2 diabetes mellitus without complications, Z00.01 - Encounter for general adult medical examination with abnormal findings TSH reflex Free T4 Today E11.9 - Type 2 diabetes mellitus without complications, Z00.01 - Encounter for general adult medical examination with abnormal findings UA CC w/rflx Micro + Cult Today E11.9 - Type 2 diabetes mellitus without complications, Z00.01 - Encounter for general adult medical examination with abnormal findings Referrals INFORMATICS APPLICATION ANALYST Referral E55.9 - Vitamin D deficiency, unspecified
--- OUTSIDE RECORDS SUMMARY | 2025-01-14 17:25 | XMS_ITS | Encounter Summary ---
Author Organization [facility] Address [address] [place] [phone] Phone Care Team Providers Care Radio Television Announcer Name Role Phone Yoana Carballo MD Primary Care Provider Unava ilable Encounter Details Date Type Department Care Team (Late st Contact Info) Description 12/22/2016 Conversion Encounter [facility] - [address] [phone] Social History Tobacco Use Types Packs/Day Years [...] on filedocumented in this encounter Care Teams Radio Television Announcer Relationship Specialty Start Date End Date Yoana Carballo MD PCP - General 12/16/16 documented as of this encounter
--- OUTSIDE RECORDS SUMMARY | 2025-01-14 17:25 | XMS_ITS | Clinical Summary ---
Author Organization [facility] Address [address] [place] [phone] Phone Care Team Providers Care Gem Technician Name Role Phone Yoana Carballo MD Primary [...] Vaccines (1 - 3-dose SCDM series) 2013 Influenza Vaccines (#1) 2024 COVID-19 Vaccine ( season) 2025 MMR Vaccines Completed 05/07/1998, 12/05/1997 HIB Vaccines [...] age to complete this topic Care Teams Gem Technician Relationship Specialty Start Date End Date Yoana Carballo MD PCP - General 12/16/16
--- OUTSIDE RECORDS SUMMARY | 2025-01-14 17:25 | XMS_ITS | Clinical Summary ---
Author Organization [facility] Address [address] [place] [address] Care Team Providers Care Principal Gifts Officer Name Role Phone Unavailable Primary Care Provider [...] Screening: P ap Smear 12/01/2007 Depression Screening 05/08/2024 COVID-19 Vaccine ( - 2023-2 5 season) 2025 Influenza Vaccine (#1) 2025 HIB Vaccines Aged [...]
== END 2025-01-14 15:46 | disposition home or self-care (01) ==
LOC: HO.HMCC 15:01
PROVIDERS: PCP Nurse Practitioner Family; Visit Provider Nurse Practitioner Family
DX: Z00.01 Encounter for general adult medical examination with abnormal findings (principal); E11.9 Type 2 diabetes mellitus without complications; E55.9 Vitamin D deficiency, unspecified

== ENCOUNTER → 2025-01-14 15:00 | Outpatient (BNVA) | payer BC, SELFPAY | PROVIDERS: PCP Nurse Practitioner Family; Visit Provider Nurse Practitioner Family | DX: Z00.01 Encounter for general adult medical examination with abnormal findings (principal); E11.9 Type 2 diabetes mellitus without complications; E66.9 Obesity, unspecified; E55.9 Vitamin D deficiency, unspecified; Z68.39 Body mass index [BMI] 39.0-39.9, adult | CPT/HCPCS: 83036; 96127; 99212; 99395 ==

== ENCOUNTER 2025-01-29 08:29 | Emergency (ER) | payer BC, SELFPAY ==
--- NOTE | ~2025-01-29 | CT_ITS ---
EXAMINATION: CT ANGIOGRAM ABDOMEN AND PELVIS CLINICAL INFORMATION: hx of CVA, r/o mesenteric/renal infarct COMPARISON: CT abdomen and pelvis without contrast performed same day TECHNIQUE: Multiple axial images were obtained through the abdomen and pelvis following the administration of 80 mL of Omnipaque 350 intravenous contrast. Images were reviewed on a dedicated 3-D workstation. This CT examination was performed using dose optimization techniques as appropriate, variously including the following: *Automated exposure control *Adjustment of mA and/or kV according to patient size (this includes techniques or standardized protocols for targeted exams where dose is matched to indication/reason for exam; i.e. extremities or head) *Use of iterative reconstruction technique FINDINGS: Vascular: There are no arterial vascular calcifications. There are no aneurysm. There is no dissection. Major mesenteric vasculature of the aorta appear patent without stenosis. Iliac arteries are also within normal limits. Liver is unremarkable. Cholecystectomy has been performed. Pancreas and spleen are unremarkable. Adrenal glands and kidneys are within normal limits. Redemonstrated is mild diverticulosis in the colon without acute inflammation. Right ovarian size is mildly prominent. There are likely multiple follicles and a dominant cyst. Uterus and left are unremarkable. There is no ascites. CT/CT angio abdomen pelvis IMPRESSION: No hemodynamically significant stenosis, aneurysm, or dissection involving the aorta or its mesenteric branches. Fleischner guidelines were followed. Electronically signed by: Earle Portillo MD 01/29/2025 01:26 PM EDT
--- NOTE | ~2025-01-29 | CT_ITS ---
EXAMINATION: CT ABDOMEN AND PELVIS WITHOUT CONTRAST CLINICAL INFORMATION: Right flank pain COMPARISON: Fibular 2021 TECHNIQUE: Multidetector volumetric imaging was performed from the superior aspect of the liver through the pubic symphysis. Sagittal and coronal reformatted images were obtained on the technologist's workstation. This CT examination was performed using dose optimization techniques as appropriate, variously including the following: *Automated exposure control *Adjustment of mA and/or kV according to patient size (this includes techniques or standardized protocols for targeted exams where dose is matched to indication/reason for exam; i.e. extremities or head) *Use of iterative reconstruction technique FINDINGS: LUNG BASES: The visualized lung bases are unremarkable. LIVER, GALLBLADDER, AND BILIARY TREE: The liver is normal in size, shape, and attenuation. No focal hepatic lesion or biliary ductal dilatation is present. Bladder is surgically absent. There are clips in the gallbladder fossa. There is no biliary ductal dilation. PANCREAS: Unremarkable. SPLEEN: Unremarkable. ADRENAL GLANDS: Unremarkable. KIDNEYS AND URETERS: The kidneys are normal in size, shape, and attenuation. No hydronephrosis, hydroureter, or calculi seen. No perinephric stranding. BLADDER: The bladder is incompletely distended. The bladder wall appears mildly thickened, but similar to the prior. GASTROINTESTINAL TRACT: A few scattered pseudodiverticula are present throughout the colon without signs of inflammation. The appendix is within normal limits. ABDOMINAL WALL: No significant hernia is appreciated. LYMPH NODES: Normal. VASCULAR: Unremarkable. PELVIC VISCERA: There is a right ovarian cyst measuring approximately 4 cm long axis. Left ovary and uterus are unremarkable. OSSEOUS STRUCTURES: Unremarkable. CT/CT abdomen pelvis wo IV con IMPRESSION: Suspected right ovarian cyst measuring up to 4 cm in length, incompletely characterized on CT without contrast. Mild chronic bladder wall thickening. The bladder is incompletely distended which may contribute to the thickened appearance. Diverticulosis without sign of infection. Fleischner guidelines were followed. Electronically signed by: Earle Portillo MD 01/29/2025 11:30 AM EDT
[2025-01-29 08:39] VITALS: BP 128/57; PULSE 84; RESP 18; TEMP 37.2; O2SAT 97; BMI 34.6
[2025-01-29 08:45] VITALS: BP 128/57; PULSE 89; RESP 16; TEMP 36.8; O2SAT 97
--- NOTE | 2025-01-29 08:48 | PC.NURSE ---
Patient reports to Ed c/o low right back pain rated 7/10 Pain started yesterday but has worsened since then Denies injury Patient reports being nauseous and vomited alittle this AM Patient reports incontinence with the back pain, patient typically continent VSS Provider in to see patient plan of care on going
--- NOTE | 2025-01-29 08:58 | ED_ITS ---
HPI - Back Pain/Injury General Chief Complaint: Back Pain/Injury Stated Complaint: Lower back sharp pain. Time Seen by Provider: 01/29/25 08:33 Source: patient and RN notes reviewed Mode of arrival: ambulatory Limitations: no limitations History of Present Illness ED Provider: Carla Birch PA-C HPI Narrative: This is a 39-year-old female, with a past medical history of CVA at age 19, HTN, systolic murmur, HLD, DM, obesity, anxiety, PTSD, depression, ADHD, PCOS, GERD, anemia, fatigue, and insomnia, post-COVID chronic SOB, fatty liver disease, cervicalgia with/ cervical myelopathy/radiculopathy, right shoulder tendinitis, ws/p cholecystectomy in 2015 who presents emergency department with concerns of right low back pain which started yesterday. She denies any known injury or trauma. She does report that she fell 2 months ago, did have back pain at that time however this resolved. She also reports difficulty with holding urine, and urinary frequency and urgency. She denies dysuria. She also reports nausea. She states that she has a history of similar symptoms, which turned out to be a kidney infection. She denies any fevers, chills, chest pain, shortness of breath. MD elicited complaint: back pain Location: right flank Radiation: none Exacerbating factors: none Relieving factors: none Related Data Previous Rx's ?Medication ?Instructions ?Recorded blood sugar diagnostic (FreeStyle #100 ea 09/30/22 Lite Strips) blood-glucose meter (FreeStyle #1 ea 09/30/22 Lite Meter kit) lancets 28 gauge (FreeStyle #100 ea 09/30/22 Lancets) albuterol sulfate 90 mcg/actuation 1 inh inhalation QI D PRN shortness 03/29/23 aerosol inhaler of breath or wheezing #8.5 g melania omeprazole 20 mg capsule,delayed 20 mg PO BID PRN refl ux #60 caps 06/20/24 release ibuprofen 800 mg tablet 800 mg PO Q8H PRN pain 30 da ys #90 11/18/24 tabs metformin 500 mg tablet 500 mg PO DAILY #90 tabs rosuvastatin 5 mg tablet 5 mg PO DAILY #90 tabs 12/12 sertraline 100 mg tablet 100 mg PO DAILY 30 days #30 tabs 12/24/24 sumatriptan succinate 25 mg tablet See Rx Instructions PO .COMPLEX 01/02/25 #12 tabs phentermine 30 mg capsule 30 mg PO DAILY 30 days #30 c aps 01/16/25 acetaminophen 500 mg tablet 1,000 mg (2 x 500 mg) PO Q 8H PRN 01/29/25 (Tylenol Extra Strength) pain #30 tabs carisoprodol 250 mg tablet (Soma) 250 mg PO TID PRN mu scle pain #10 01/29/25 tabs ibuprofen 600 mg tablet 600 mg PO Q6H PRN pain #30 t abs 01/29/25 Allergies Allergy/AdvReac Type Severity Reaction Status Date / Time Sulfa (Sulfonamide Allergy Intermediate hives Verified 01/29/25 08:40 Antibiotics) sulfamethoxazole (From Allergy Intermediate HIVES Verified 01/29/25 08:40 BACTRIM) trimethoprim (From BACTRIM) Allergy Intermediate HIVES Verified 01/29/25 08:40 lisinopril AdvReac Mild Cough Verified 01/29/25 08:40 Review of Systems 2 Review of Systems: Constitutional : No Fever, No Chills ENT/Mouth : No sore throat, No Rhinorrhea Eyes: No Eye Pain, No Swelling, No Redness Cardiovascular : No Chest Pain, No SOB Respiratory : No Cough, No Sputum Gastrointestinal : No Nausea, No Vomiting, No Diarrhea, No abdominal Pain Genitourinary : No Dysuria, No Hematuria Musculoskeletal : No joint pain, No Myalgias, No Joint Swelling Skin : No Skin Lesions Neuro : No Weakness, No Numbness, No Headache All other systems reviewed and are negative Yes all other systems are reviewed and are negative Constitutional: Constitutional: Reports as per HPI [facility] Past Medical History Medical History Diabetes Anxiety PTSD (post-traumatic stress disorder) Anemia Panic attack History of PCOS History of anemia Surgical History S/P colonoscopy Hx of cholecystectomy History of myringotomy History of tonsillectomy Family History Family History Father Acute LA CVD (cardiovascular disease) Mental health disorder Mother HTN (hypertension) Diabetes mellitus Depression Mental health disorder Maternal Grandmother Lung cancer Mental health disorder Paternal Grandmother Brain aneurysm CVD (cardiovascular disease) Mental health disorder Maternal Grandfather Mental health disorder Paternal Grandfather Mental health disorder Sister Mental health disorder Social History Social History Housing: Apartment Are you a primary child care nurse to a significant other at home: No Do you presently have visiting nurse or other home services: No Alcohol intake: current Alcohol intake frequency: holidays/special occasions only Patient Tobacco Use Status: Former Tobacco user e-Cigarette/Vaping Use: Never Used Second Hand Smoke Exposure: Yes Substance Use Type: Marijuana service: No Current occupational status: employed Current occupation: [employer] Current occupational exposures/hazards: No Cognitive needs: No Hearing needs: No Vision needs: No Physical Exam 2 Vital Signs: Vital Signs: Last Vital Signs Temp 97.9 F 01/29/25 14:47 Pulse 66 01/29/25 14:47 Resp 16 01/29/25 14:47 BP 109/65 01/29/25 14:47 Pulse Ox 96 01/29/25 14:47 O2 Del Method Room Air 01/29/25 14:47 BMI result Body Mass Index 34.6 Const: General: cooperative, comfortable and no acute distress O rientation/consciousness: patient oriented x3 Limitations: no limitations HEENT: Head: Yes normal to inspection, Yes normocephalic and Yes atraumatic Ears: hearing grossly normal bilaterally General nose exam: Normal external nose present Face and sinus: Yes normal facial exam Mouth: Normal oral and palatal mucosa present, oropharynx normal and moist mucous membranes Throat: Yes posterior oropharynx normal Eyes: General: appearance normal, both eyes and all related structures E yelids: Yes eyelids normal Conjunctivae: conjunctivae normal Sclerae: s clerae normal Pupils: Equal, round and reactive pupils present EOM: EOMs intact bilaterally Neck: Neck: Yes normal visual inspection, Yes full ROM and Yes no lymphadenopathy Lymphatic: no lymphadenopathy noted Chest: Chest palpation & inspection: normal inspection of the chest Resp: Effort & Inspection: normal respiratory effort and able to speak in complete sentences Auscultation: clear to auscultation bilaterally, no crackles, no rales, no rhonchi and no wheezes Cardio: Rate: regular rate Rhythm: regular rhythm Heart sounds: S1 normal heart sound present and S2 normal heart sound present GI: Other: Abd soft, nontender, nondistended Inspection: Yes normal to inspection Back/Spine/Pelvis: Other: mild cva tenderness, pain elicted with changing positions. Strength 5/5 in LE. sensation intact. Skin: General skin exam: no rashes or lesions noted Trauma: no lacerations or abrasions Wounds: no wounds Neuro: General: patient oriented x3 and moves all extremities Cranial nerves: Yes Equal, round and reactive pupils present Extrem: General: Yes normal to inspection Right upper extremity: normal to inspection Left upper extremity: normal to inspection Right lower extremity: normal to inspection Left lower extremity: normal to inspection Medications Administered Discontinued Medications Generic Name Dose Route Start Last Admin Trade Name Freq PRN Reason Stop Dose Admin Hydromorphone HCl 1 mg 01/29/25 11:18 01/29/25 11:39 Hydromorphone Hcl 1 Mg/Ml Syringe IVPUSH 01/29/25 11:19 1 mg ONCE ONE Administration Protocol Sodium Chloride 1,000 mls @ 999 mls/hr 01/29/25 09:10 01/29/25 11:41 Ns IV 01/29/25 10:10 Infused .Q1H1M ONE Infusion Iohexol 80 ml 01/29/25 13:02 01/29/25 13:03 Iohexol 350 Mg/Ml 100 Ml Infus..Btl IV 01/29/25 13:03 80 ml ONCE ONE Administration Ketorolac Tromethamine 15 mg 01/29/25 10:39 01/29/25 10:49 Ketorolac Tromethamine 15 Mg/Ml Vial IVPUSH 01/29/25 10:40 15 mg ONCE ONE Administration Morphine Sulfate 4 mg 01/29/25 09:09 01/29/25 10:01 Morphine Sulfate 4 Mg/Ml Cartridge IVPUSH 01/29/25 09:10 4 mg ONCE ONE Administration Protocol Ondansetron HCl 4 mg 01/29/25 09:09 01/29/25 10:02 Ondansetron Hcl 4 Mg/2 Ml Vial IVPUSH 01/29/25 09:10 4 mg ONCE ONE Administration Medical Decision Making Medical Decision Making MDM Narrative: This is a 39-year-old female, HTN, systolic murmur, HLD, DM, obesity, anxiety, PTSD, depression, ADHD, PCOS, GERD, anemia, fatigue, and insomnia, post-COVID chronic SOB, fatty liver disease, cervicalgia with/ cervical myelopathy/radiculopathy, right shoulder tendinitis, ws/p cholecystectomy in 2014 who presents emergency department with concerns of right low back pain which started yesterday. On arrival, patient tearful, appears to be uncomfortable secondary to pain. Vital signs within normal limits. She is speaking full sentences. Patient with positive right CVA tenderness. 11:20 AM 01/29/2025 (Carla Birch PA-C): Patient re-evaluated, her pain has improved however still reporting pretty significant pain in her right flank. She did go to CAT scan, awaiting the official report. Will order Dilaudid 1 mg IV. Labs returned, she has no leukocytosis, stable H&H, chemistry revealing no significant electrolyte derangement. No evidence of TEDDY 12:31 PM 01/29/2025 (Carla Birch PA-C): Patient continues to have right- sided flank pain. Patient was seen by Neurology in December. She did have a sargent whole clot in the brain with residual right-sided weakness and numbness and there is no definitive cause for the embolic stroke however she was an active smoker at that time and started using a contraceptive patch. She was discontinued on blood thinners and was advised to against the use of estrogen containing contraceptions. She was seen cardiology and neurology for some time after the stroke however lost to care due to insurance labs. Given level of discomfort persisting after receiving IV pain medication, and really unremarkable CT scan, I would like to ensure that there is not a renal or mesenteric infarct causing her to have this pain as this seems to be atypical in presentation. Discussed overall workup with patient. We will continue to monitor pending CTA. CTA negative. Unclear what is causing patient's symptoms, but may be MSK in nature given pain worsening with movement. She was given strict return precautions. Pt feeling better, vital stable. Pt stable for d/c. Differential Diagnosis Differential Diagnoses: The differential diagnosis associated with the presentation includes renal colic, pyelnephritis, UTI, renal infarct, lumbar strain/spasm Lab Data [facility] Lab Attestation statement: I reviewed the patient's lab results. see [facility] 01/29/25 09:29 01/29/25 09:29 Labs: Lab Results 01/29/25 01/29/25 01/29/25 Range/Units 09: 10:10 13:09 WBC 9.4 (4.8-10.8) X10*3/uL RBC 4.42 (4.20-5.50) X10*6/uL Hgb 13.2 (12.0-16.0) g/dl Hct 38.5 (37.0-47.0) % MCV 87.1 (80.0-98.0) fL MCH 29.9 (27.0-33.0) pg MCHC 34.3 (31.0-35.0) g/dl RDW 13.9 (11.0-16.0) % Plt Count 276 (160-400) X10*3/uL MPV 8.5 L (9.4-12.3) fL Immature Gran % (Auto) 0.2 (0.0-0.4) % Neut % (Auto) 73.3 H (45-73) % Lymph % (Auto) 19.1 L (20-40) % [place] % (Auto) 4.6 (2-11) % Eos % (Auto) 2.5 (0-4) % Baso % (Auto) 0.3 (0-2) % Lymph # (Auto) 1.8 (1.2-4.9) X10*3/uL [place] # (Auto) 0.4 (0.1-1.2) X10*3/uL Eos # (Auto) 0.2 (0.0-0.4) X10*3/uL Baso # (Auto) 0.0 (0.0-0.2) X10*3/uL Abs Immat Gran (auto) 0.02 (0.00-0.03) X10*3/uL Absolute Neuts (auto) 6.9 (2.0-8.3) x10*3/uL Absolute Nucleated RBC 0.000 (0.0-0.012) X10*3/uL Nucleated RBC % (auto) 0.0 (0.0-0.2) /100WBC Sodium 137 (135-145) mmol/L Potassium 4.2 (3.3-5.1) mmol/L Chloride 107 (96-108) mmol/L Carbon Dioxide 26 (22-29) mmol/L Anion Gap 8 L (12-20) BUN 12 (9-16) mg/dL Creatinine 0.84 (0.5-1.4) mg/dL Estim Creat Clear Calc 106.7 Estimated GFR > 60 Random Glucose 113 (60-115) mg/dL Lactic Acid 0.5 (0.5-2.0) mmol/L Calcium 9.3 (8.4-10.2) mg/dL Magnesium 2.0 (1.6-2.6) mg/dL Total Bilirubin 0.3 (0.0-1.0) mg/dL Direct Bilirubin 0.1 (0.0-0.5) mg/dL AST 29 (5-31) U/L ALT 30 (0-31) U/L Alkaline Phosphatase 115 (39-117) U/L Total Protein 6.8 (6.5-8.0) g/dL Albumin 4.6 (3.5-5.0) g/dL Lipase 23 (8-78) U/L Beta HCG, Quant < 2 mIU/mL Urine Color Yellow Urine Appearance Clear Urine pH 8.0 (5.0-9.0) Ur Specific [place] 1.010 (1.005-1.025) Urine Protein Negative (Neg-Trace) mg/dL Urine Glucose (UA) Negative (Negative) mg/dL Urine Ketones Negative (Negative) mg/dL Urine Blood Negative (Negative) Urine Nitrite Negative (Negative) Ur Leukocyte Esterase Negative (Negative) Radiology Impression Discussion of test interpretation with radiology: I have reviewed the radiologist's reading. Radiologist Impression: [place] [id number] CT Scan Report Signed Patient: Miya Willingham MR#: [id number] : 1985 Acct:[id number] Age/Sex: 39 / F ADM Date: 01/29/25 Loc: .ED Attending Dr: Ordering Physician: Carla Birch Date of Service: 01/29/25 Procedure(s): CT abdomen pelvis wo IV con Accession Number(s): [id number] cc: John Wright [facility]-; Carla Birch~ Report Number: [id number]: Total DLP = 0.00 mGy-cm Reason for Exam: R flank pain EXAMINATION: CT ABDOMEN AND PELVIS WITHOUT CONTRAST CLINICAL INFORMATION: Right flank pain COMPARISON: 2021 TECHNIQUE: Multidetector volumetric imaging was performed from the superior aspect of the liver through the pubic symphysis. Sagittal and coronal reformatted images were obtained on the technologist's workstation. This CT examination was performed using dose optimization techniques as appropriate, variously including the following: *Automated exposure control *Adjustment of mA and/or kV according to patient size (this includes techniques or standardized protocols for targeted exams where dose is matched to indication/reason for exam; i.e. extremities or head) *Use of iterative reconstruction technique FINDINGS: LUNG BASES: The visualized lung bases are unremarkable. LIVER, GALLBLADDER, AND BILIARY TREE: The liver is normal in size, shape, and attenuation. No focal hepatic lesion or biliary ductal dilatation is present. Bladder is surgically absent. There are clips in the gallbladder fossa. There is no biliary ductal dilation. PANCREAS: Unremarkable. SPLEEN: Unremarkable. ADRENAL GLANDS: Unremarkable. KIDNEYS AND URETERS: The kidneys are normal in size, shape, and attenuation. No hydronephrosis, hydroureter, or calculi seen. No perinephric stranding. BLADDER: The bladder is incompletely distended. The bladder wall appears mildly thickened, but similar to the prior. GASTROINTESTINAL TRACT: A few scattered pseudodiverticula are present throughout the colon without signs of inflammation. The appendix is within normal limits. ABDOMINAL WALL: No significant hernia is appreciated. LYMPH NODES: Normal. VASCULAR: Unremarkable. PELVIC VISCERA: There is a right ovarian cyst measuring approximately 4 cm long axis. Left ovary and uterus are unremarkable. OSSEOUS STRUCTURES: Unremarkable. CT/CT abdomen pelvis wo IV con IMPRESSION: Suspected right ovarian cyst measuring up to 4 cm in length, incompletely characterized on CT without contrast. Mild chronic bladder wall thickening. The bladder is incompletely distended which may contribute to the thickened appearance. Diverticulosis without sign of infection. Fleischner guidelines were followed. Electronically signed by: Earle Portillo MD 01/29/2025 11:30 AM EDT Dictated By: Earle Portillo MD Reason for Exam: hx of CVA, r/o mesenteric/renal infarct EXAMINATION: CT ANGIOGRAM ABDOMEN AND PELVIS CLINICAL INFORMATION: hx of CVA, r/o mesenteric/renal infarct COMPARISON: CT abdomen and pelvis without contrast performed same day TECHNIQUE: Multiple axial images were obtained through the abdomen and pelvis following the administration of 80 mL of Omnipaque 350 intravenous contrast. Images were reviewed on a dedicated 3-D workstation. This CT examination was performed using dose optimization techniques as appropriate, variously including the following: *Automated exposure control *Adjustment of mA and/or kV according to patient size (this includes techniques or standardized protocols for targeted exams where dose is matched to indication/reason for exam; i.e. extremities or head) *Use of iterative reconstruction technique FINDINGS: Vascular: There are no arterial vascular calcifications. There are no aneurysm. There is no dissection. Major mesenteric vasculature of the aorta appear patent without stenosis. Iliac arteries are also within normal limits. Liver is unremarkable. Cholecystectomy has been performed. Pancreas and spleen are unremarkable. Adrenal glands and kidneys are within normal limits. Redemonstrated is mild diverticulosis in the colon without acute inflammation. Right ovarian size is mildly prominent. There are likely multiple follicles and a dominant cyst. Uterus and left are unremarkable. There is no ascites. CT/CT angio abdomen pelvis IMPRESSION: No hemodynamically significant stenosis, aneurysm, or dissection involving the aorta or its mesenteric branches. Fleischner guidelines were followed. Electronically signed by: Earle Portillo MD 01/29/2025 01:26 PM EDT RP Dictated By: Earle Portillo MD Discharge Plan Discharge Clinical Impression: Back pain Patient Disposition: Home, Self-Care Instructions: Back Pain (ED) Additional Instructions: You were seen in the emergency department due to right-sided back pain. Your overall workup today was reassuring. You were found to have a right ovarian cyst, please follow-up with your OBGYN regarding this finding as they may need to monitor this. It is unclear what is causing you to have the symptoms however this could be musculoskeletal in nature. Take prescribed muscle relaxants as directed, please be advised that this can cause drowsiness, do not drink alcohol or drive while taking this medication. Alternate between ibuprofen and or Tylenol can the beneficial. If any new or worsening symptoms occur including but not limited to worsening pain, severe chest pain, shortness of breath, please seek emergent care. Prescriptions: New carisoprodol [Soma] 250 mg tablet 250 mg PO TID PRN (Reason: muscle pain) Qty: 10 0RF acetaminophen [Tylenol Extra Strength] 500 mg tablet 1,000 mg PO Q8H PRN (Reason: pain) Qty: 30 0RF ibuprofen 600 mg tablet 600 mg PO Q6H PRN (Reason: pain) Qty: 30 0RF No Action (DME) blood-glucose meter [FreeStyle Lite Meter] Kit See Rx Instructions .Route Qty: 1 0RF Rx Instructions: As directed (DME) FreeStyle Lite Strips Strip See Rx Instructions .Route Qty: 100 1RF Rx Instructions: test blood sugar once a day (DME) lancets [FreeStyle Lancets] 28 gauge misc See Rx Instructions .Route Qty: 100 1RF Rx Instructions: Test blood sugar once a day albuterol sulfate 90 mcg/actuation HFA aerosol inhaler 1 inh inhalation QID PRN (Reason: shortness of breath or wheezing) Qty: 8.5 2RF omeprazole 20 mg capsule,delayed release(DR/EC) 20 mg PO BID PRN (Reason: reflux) Qty: 60 3RF metformin 500 mg tablet 500 mg PO DAILY Qty: 90 1RF rosuvastatin 5 mg tablet 5 mg PO DAILY Qty: 90 1RF sertraline 100 mg tablet 100 mg PO DAILY 30 Days Qty: 30 4RF phentermine 30 mg capsule 30 mg PO DAILY 30 Days Qty: 30 1RF Rx Instructions: must administer 2 hours after breakfast sumatriptan succinate 25 mg tablet See Rx Instructions PO .COMPLEX Qty: 12 1RF Rx Instructions: take 1 tab at onset of headache; if no relief may repeat 1 tab after at least 2 hrs; max = 4 tabs/24 hr PO ibuprofen 800 mg tablet 800 mg PO Q8H PRN (Reason: pain) 30 Days Qty: 90 3RF Stand Alone Forms: Work/School Release Interventions: ED Discharge Assessment Last Done: 01/29/25 14:47 Discharge Date/Time: 01/29/25 14:59 Print Language: Martiniquais
[2025-01-29 09:47] LABS: MANUAL DIFF FLAG NO
[2025-01-29 09:49] LABS: Hematocrit 38.5 % (37.0-47.0); Hemoglobin 13.2 g/dl (12.0-16.0); Imm Gran Abs Auto 0.02 X10*3/uL (0.00-0.03); Imm Gran Pct Auto 0.2 % (0.0-0.4); Lymphocytes Absolute Auto 1.8 X10*3/uL (1.2-4.9); Mean Corpuscular HGB Conc 34.3 g/dl (31.0-35.0); Mean Corpuscular Hemoglobin 29.9 pg (27.0-33.0); Mean Corpuscular Volume 87.1 fL (80.0-98.0); NRBC Abs Auto 0.000 X10*3/uL (0.0-0.012); NRBC Pct Auto 0.0 /100WBC (0.0-0.2); Platelet Count 276 X10*3/uL (160-400); Red Blood Count 4.42 X10*6/uL (4.20-5.50); White Blood Count 9.4 X10*3/uL (4.8-10.8)
--- OUTSIDE RECORDS SUMMARY | 2025-01-29 09:50 | XMS_ITS | Clinical Summary ---
Author Organization [facility] Address [address] [place] [id number] Phone Care Team Providers Care Respiratory Therapy Manager Name Role Phone Yoana Carballo MD Primary [...] age to complete this topic Care Teams Respiratory Therapy Manager Relationship Specialty Start Date End Date Yoana Carballo MD PCP - General 12/16/16
--- OUTSIDE RECORDS SUMMARY | 2025-01-29 09:50 | XMS_ITS | Clinical Summary ---
Author Organization [facility] Address [address] [place] [address] Care Team Providers Care Planner Intern Name Role Phone Unavailable Primary Care Provider [...]
--- OUTSIDE RECORDS SUMMARY | 2025-01-29 09:50 | XMS_ITS | Encounter Summary ---
Author Organization [facility] Address [address] [place] [id number] Phone Care Team Providers Care Recovery Coach Name Role Phone Yoana Carballo MD Primary Care Provider Unava ilable Encounter Details Date Type Department Care Team (Late st Contact Info) Description 12/22/2016 Conversion Encounter [facility] - [address] [phone] Social History Tobacco Use Types Packs/Day Years [...] on filedocumented in this encounter Care Teams Recovery Coach Relationship Specialty Start Date End Date Yoana Carballo MD PCP - General 12/16/16 documented as of this encounter
[2025-01-29 10:02] LABS: Alanine Aminotransferase 30 U/L (0-31); Albumin Level 4.6 g/dL (3.5-5.0); Alkaline Phosphatase 115 U/L (39-117); Anion Gap 8 (12-20); Aspartate Amino Transferase 29 U/L (5-31); Blood Urea Nitrogen 12 mg/dL (9-16); Calcium 9.3 mg/dL (8.4-10.2); Carbon Dioxide 26 mmol/L (22-29); Chloride 107 mmol/L (96-108); Creatinine Clr Calc Pharmacy 106.7; Estimated Glomerular Filt Rate > 60; Lipase 23 U/L (8-78); Potassium 4.2 mmol/L (3.3-5.1); Sodium 137 mmol/L (135-145); Total Protein 6.8 g/dL (6.5-8.0)
[2025-01-29 10:07] LABS: Magnesium 2.0 mg/dL (1.6-2.6)
[2025-01-29 10:16] LABS: Appearance Urine Clear; Glucose Urine UA Negative (Negative); PH 8.0 (5.0-9.0); Specific Gravity - Urine 1.010 (1.005-1.025)
[2025-01-29 11:38] VITALS: BP 110/71; PULSE 60; RESP 14; TEMP 36.8; O2SAT 96
[2025-01-29] MEDS: iohexoL 350 MG/ML 100 ML INFUS..BTL 80 ML IV (13:03)
[2025-01-29 14:02] VITALS: BP 109/65; PULSE 66; TEMP 36.6; O2SAT 96
[2025-01-29 14:47] VITALS: BP 109/65; PULSE 66; RESP 16; TEMP 36.6; O2SAT 96
== END 2025-01-29 14:59 | disposition home or self-care (01) ==
PROVIDERS: Physician Assistant Medical; Emergency Provider Emergency Medicine; PCP Nurse Practitioner Family
DX: M54.50 Low back pain, unspecified (principal); I10 Essential (primary) hypertension; E11.9 Type 2 diabetes mellitus without complications; R11.0 Nausea; R10.2 Pelvic and perineal pain; R10.9 Unspecified abdominal pain; Z87.891 Personal history of nicotine dependence; Z79.84 Long term (current) use of oral hypoglycemic drugs; Z79.899 Other long term (current) drug therapy; Z86.73 Personal history of transient ischemic attack (TIA), and cerebral infarction without residual deficits
CPT/HCPCS: 36415; 74174; 74176; 80048; 80076; 81003; 83605; 83690; 83735; 84702; 85025; 96361; 96374; 96375; 99285; J1171; J1885; J2270; J2405; Q9967

== ENCOUNTER → 2025-01-29 10:47 | Outpatient (BNV) | payer BC, SELFPAY | PROVIDERS: Emergency Provider Emergency Medicine; PCP Nurse Practitioner Family; Visit Provider Radiology Diagnostic Radiology | DX: K57.30 Diverticulosis of large intestine without perforation or abscess without bleeding (principal); M54.50 Low back pain, unspecified | CPT/HCPCS: 74174 ==

== ENCOUNTER 2025-02-05 15:48 | Outpatient (REF) | payer BC, SELFPAY ==
--- NOTE | ~2025-02-05 | MR_ITS ---
EXAMINATION: MR ANGIOGRAPHY BRAIN WITHOUT CONTRAST CLINICAL INFORMATION: R 51.9. Headache. Prior stroke. COMPARISON: None available. TECHNIQUE: 3-D [id number]. Maximum intensity projections [place] without IV contrast. FINDINGS: Anterior cerebral circulation: ICAs: No flow signal gap or abrupt cut off. MCA's: No flow signal gap or abrupt cut off. ACAs: No flow signal gap or abrupt cut off. Ophthalmic arteries: Normal flow signal. Posterior communicating arteries: Normal flow signal with small caliber on the left and not clearly identify on the right side. Anterior communicating artery flow signal: Not present. Posterior cerebral circulation: V3/V4 segments: Normal flow signal. No flow signal gap or intimal flap. Posterior inferior cerebellar arteries flow signal is normal. Anterior inferior cerebellar arteries flow signal is normal. Basilar artery: Normal flow signal without intimal flap. Superior cerebellar arteries: Normal flow signal. 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 MR/MR angio head wo con IMPRESSION: No main cerebral artery occlusion or embolus. No gross cerebral aneurysm. Electronically signed by: Jorge A Prajapati MD 02/06/2025 07:19 AM EDT
--- NOTE | ~2025-02-05 | MR_ITS ---
EXAMINATION: MR BRAIN WITHOUT AND WITH CONTRAST CLINICAL INFORMATION: R 51.9. Headache. Prior stroke. COMPARISON: None available. TECHNIQUE: Multiplanar, multisequence MRI of the brain was obtained before and after the intravenous administration of 10.0 mL gadolinium based (Gadavist) without reported immediate complications. FINDINGS: No restricted diffusion. No acute intracranial hemorrhage. There is a focal, 9.7 mm intra-axial, intrinsic hyperintense T1 nonenhancing, nonrestricted signal abnormality, right cerebellar white matter with associated susceptibility. There is serpiginous vascular susceptibility enhancing signal abnormality in the right posterior cranial fossa extending from the extra-axial/peripheral right cerebellar, dorsal aspect of the right brachial pontis and extending into the right Luschka foramina and likely draining into the right jugular bulb. No mass effect, midline shift, hydrocephalus or herniation. Rosenthal-white matter differentiation is normal. 5 mm hyperintense FLAIR hypointense T2 susceptibility signal within the choroid plexus in the left atrium lateral ventricle. Sellar/suprasellar region is normal. Craniocervical junction demonstrates normal position of the cerebellar tonsils. Flow-void signal within the main cerebral vessels is normal. MR/MR head/brain wo/w con IMPRESSION: No acute stroke/nonhemorrhagic ischemia. 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 Electronically signed by: Jorge A Prajapati MD 02/06/2025 07:13 AM EDT
--- OUTSIDE RECORDS SUMMARY | 2025-02-05 16:30 | XMS_ITS | Clinical Summary ---
Author Organization [facility] Address [address] [place] [address] Care Team Providers Care Foreman/Pile Driving And Erection Name Role Phone Unavailable Primary Care Provider [...] Cervical Cancer Screening: P ap Smear 12/01/2007 HPV Vaccines (1 - 3-dose SCD M series) 2013 Depression Screening 05/08/2024 COVID-19 Vaccine ( - 2023-2 5 season) 2025 Influenza Vaccine (#1) 2025 RSV Immunization Adult Patie nts (1 - 1-dose 75+ series) 2061 HIB Vaccines Aged Out No longer eligi [...]
== END 2025-02-05 15:49 | disposition home or self-care (01) ==
LOC: HO.MRI 15:48
PROVIDERS: PCP Nurse Practitioner Family; Visit Provider Nurse Practitioner Family
DX: R51.9 Headache, unspecified (principal); R29.2 Abnormal reflex; E66.01 Morbid (severe) obesity due to excess calories; E11.9 Type 2 diabetes mellitus without complications; Z86.73 Personal history of transient ischemic attack (TIA), and cerebral infarction without residual deficits; Z82.3 Family history of stroke
CPT/HCPCS: 70544; 70553; A9585

== ENCOUNTER → 2025-02-05 15:54 | Outpatient (BNV) | payer BC, SELFPAY | PROVIDERS: PCP Nurse Practitioner Family; Visit Provider Radiology Diagnostic Radiology | DX: R51.9 Headache, unspecified (principal); D18.02 Hemangioma of intracranial structures | CPT/HCPCS: 70544; 70553 ==

== ENCOUNTER 2025-02-20 08:14 | Outpatient (REF) | payer BC, SELFPAY ==
--- OUTSIDE RECORDS SUMMARY | 2025-02-20 08:24 | XMS_ITS | Clinical Summary ---
Author Organization [facility] Address [address] [place] [address] Care Team Providers Care Baker Bench Name Role Phone Unavailable Primary Care Provider [...]
--- OUTSIDE RECORDS SUMMARY | 2025-02-20 08:24 | XMS_ITS | Encounter Summary ---
Author Organization [facility] Address [address] [place] [phone] Phone Care Team Providers Care Senior Java J2Ee Developer Name Role Phone Yoana Carballo MD Primary Care Provider Unava ilable Encounter Details Date Type Department Care Team (Late st Contact Info) Description 12/22/2016 Conversion Encounter [facility] - [address] [phone] Social History Tobacco Use Types Packs/Day Years [...] on filedocumented in this encounter Care Teams Senior Java J2Ee Developer Relationship Specialty Start Date End Date Yoana Carballo MD PCP - General 12/16/16 documented as of this encounter
--- OUTSIDE RECORDS SUMMARY | 2025-02-20 08:24 | XMS_ITS | Clinical Summary ---
Author Organization [facility] Address [address] [place] [phone] Phone Care Team Providers Care Regional Education Coordinator Name Role Phone Yoana Carballo MD Primary [...] 2013 Influenza Vaccines (#1) 2024 COVID-19 Vaccine (2024- season) 2025 MMR Vaccines Completed 05/07/1998, 12/05/1997 [...] age to complete this topic Care Teams Regional Education Coordinator Relationship Specialty Start Date End Date Yoana Carballo MD PCP - General 12/16/16
[2025-02-20 10:09] LABS: MANUAL DIFF FLAG NO
[2025-02-20 10:10] LABS: Hematocrit 40.9 % (37.0-47.0); Hemoglobin 13.3 g/dl (12.0-16.0); Imm Gran Abs Auto 0.02 X10*3/uL (0.00-0.03); Imm Gran Pct Auto 0.2 % (0.0-0.4); Lymphocytes Absolute Auto 1.9 X10*3/uL (1.2-4.9); Mean Corpuscular HGB Conc 32.5 g/dl (31.0-35.0); Mean Corpuscular Hemoglobin 29.1 pg (27.0-33.0); Mean Corpuscular Volume 89.5 fL (80.0-98.0); NRBC Abs Auto 0.000 X10*3/uL (0.0-0.012); NRBC Pct Auto 0.0 /100WBC (0.0-0.2); Platelet Count 327 X10*3/uL (160-400); Red Blood Count 4.57 X10*6/uL (4.20-5.50); White Blood Count 8.7 X10*3/uL (4.8-10.8)
[2025-02-20 11:21] LABS: Alanine Aminotransferase 22 U/L (0-31); Albumin Level 4.4 g/dL (3.5-5.0); Alkaline Phosphatase 111 U/L (39-117); Anion Gap 10 (12-20); Aspartate Amino Transferase 21 U/L (5-31); Blood Urea Nitrogen 11 mg/dL (9-16); Calcium 8.9 mg/dL (8.4-10.2); Carbon Dioxide 24 mmol/L (22-29); Chloride 109 mmol/L (96-108); Cholesterol 129 mg/dL (<200); Estimated Glomerular Filt Rate > 60; HDL Cholesterol 40 mg/dL (>40); Potassium 4.0 mmol/L (3.3-5.1); Sodium 139 mmol/L (135-145); Total Protein 6.6 g/dL (6.5-8.0); Triglycerides 154 mg/dL (<150)
== END 2025-02-20 08:15 | disposition home or self-care (01) ==
LOC: HO.HMGCLDS 08:14
PROVIDERS: PCP Nurse Practitioner Family; Visit Provider Nurse Practitioner Family
DX: Z00.01 Encounter for general adult medical examination with abnormal findings (principal); E11.9 Type 2 diabetes mellitus without complications; E55.9 Vitamin D deficiency, unspecified; F41.0 Panic disorder [episodic paroxysmal anxiety]; F41.9 Anxiety disorder, unspecified
CPT/HCPCS: 36415; 80053; 80061; 82306; 84443; 85025; 96127

== ENCOUNTER 2025-02-20 08:25 | Outpatient (AMB) | payer BC, SELFPAY ==
--- NOTE | 2025-02-20 08:28 | MHC.PC.OV ---
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 Required: No Accompanied by: Self / Same As Patient Allergies Sulfa (Sulfonamide Antibiotics) Allergy (Intermediate, Verified 01/29/25 08:40) hives sulfamethoxazole (From BACTRIM) Allergy (Intermediate, Verified 01/29/25 08:40) HIVES trimethoprim (From BACTRIM) Allergy (Intermediate, Verified 01/29/25 08:40) HIVES lisinopril Adverse Reaction (Mild, Verified 01/29/25 08:40) Cough Medication List - Last Reconciled 02/20/25 by LAUREEN Carey acetaminophen (Tylenol Extra Strength) 1,000 mg (2 x 500 mg) PO Q8H PRN albuterol sulfate 90 mcg/actuation 1 inh inhalation QID PRN blood sugar diagnostic (FreeStyle Lite Strips) test blood sugar once a day blood-glucose meter (FreeStyle Lite Meter kit) As directed carisoprodol (Soma) 250 mg PO TID PRN ibuprofen 800 mg PO Q8H PRN 30 days lancets (FreeStyle Lancets) Test blood sugar once a day metformin 500 mg PO DAILY omeprazole 20 mg PO BID PRN phentermine 30 mg PO DAILY 30 days rosuvastatin 5 mg PO DAILY sertraline 100 mg PO DAILY 30 days sumatriptan succinate take 1 tab at onset of headache; if no relief may repeat 1 tab after at least 2 hrs; max = 4 tabs/24 hr PO Tobacco use date assessed: 02/20/25 Dental Screening Dental Screen Date: 01/14/25 HPI Anxiety HPI Details Chief Complaint The patient presents with anxiety and daily panic attacks. History of Present Illness The patient is a 39-year-old female presenting with anxiety and panic attacks. She experiences panic attacks on a daily basis, exacerbated by personal stressors such as a divorce and managing a child entering puberty. She denies suicidal or homicidal ideation and reports satisfaction with her job. The panic attacks are severe and distressing. Previous treatments included hydroxyzine and buspirone, which were ineffective. A low-dose benzodiazepine has been prescribed with instructions to avoid daily use, sharing, and driving while on the medication. 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 She plans to follow up with a therapist and psychiatrist, starting with the therapist soon. 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 Denies suicidal or homicidal ideation. Physical Exam General: Cooperative, healthy appearing, comfortable, no acute distress and well developed, tear eyed Orientation: Patient oriented x3 Limitations: No limitations Head: Normal to inspection Ears: Hearing grossly normal bilaterally Nose: Normal external nose present Face and sinus: Normal facial exam Eyes: Appearance normal, both eyes and all related structures Neck: Normal visual inspection and Yes full ROM Respiratory: Normal respiratory effort and able to speak in complete sentences. Clear to auscultation bilaterally Cardiovascular: Regular rate and rhythm. Normal S1 and S2 GI: Normal to inspection. Soft to palpation and nontender Skin: No rashes or lesions noted Neuro: Patient oriented x3 Extremities: Normal to inspection Results Plan 1. Anxiety The patient will continue with therapy and psychiatric follow-up to manage anxiety. A low-dose benzodiazepine has been prescribed with instructions to avoid daily use, sharing, and driving while on the medication. 2. Panic Attacks The patient has been prescribed a low-dose benzodiazepine for panic attacks, with clear instructions on its use. She will also follow up with a therapist and psychiatrist for further management. Discussion Notes I discussed with the patient the use of a low-dose benzodiazepine for her panic attacks, emphasizing the importance of not using it daily, not sharing it, and avoiding driving while on the medication due to its habit-forming potential. 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 She will follow up with a therapist and psychiatrist for ongoing management. Patient Instructions - Take the prescribed benzodiazepine only as needed and not daily. - Do not share the medication with others. - Avoid driving while taking the medication. - Follow up with a therapist and psychiatrist as planned. [facility] Medical History (Updated 02/20/25 @ 09:00 by REINALDO Carey) Diabetes Anxiety PTSD (post-traumatic stress disorder) Anemia Panic attack History of PCOS History of anemia Surgical History S/P colonoscopy Hx of cholecystectomy History of myringotomy History of tonsillectomy Family History Father Acute AL CVD (cardiovascular disease) Mental health disorder Mother HTN (hypertension) Diabetes mellitus Depression Mental health disorder Maternal Grandmother Lung cancer Mental health disorder Paternal Grandmother Brain aneurysm CVD (cardiovascular disease) Mental health disorder Maternal Grandfather Mental health disorder Paternal Grandfather Mental health disorder Sister Mental health disorder Social History Housing: Apartment Are you a primary home care nurse to a significant other at home: No Do you presently have visiting nurse or other home services: No Alcohol intake: current Alcohol intake frequency: holidays/special occasions only Patient Tobacco Use Status: Former Tobacco user e-Cigarette/Vaping Use: Never Used Second Hand Smoke Exposure: Yes Substance Use Type: Marijuana service: No Current occupational status: employed Current occupation: [employer] Current occupational exposures/hazards: No Cognitive needs: No Hearing needs: No Vision needs: No Questionnaire Thrive Questionnaire Date Thrive assessed: 07/10/24 I am a: Patient What is your living situation today?: I have a steady place to live Within the past 12 months, did the food you bought not last and you didn't have the money to get more?: Never true Within the past 12 months, did you worry whether your food would run out before you got money to buy more?: Never true Do you have trouble paying for medicines?: No Do you have trouble getting transportation to medical appointments?: No Do you have trouble paying your heating and electricity bill?: No Do you have trouble taking care of your child, family member or friend?: No Do you have trouble with day-to-day activities such as bathing, preparing meals, shopping, managing finances, etc.?: Yes Are you currently unemployed and looking for a job?: No Are you interested in more education?: No Please select the resources that you would like help with: None THRIVE Score: 0 RORO-7 AMB Questionnaire RORO-7 Date RORO - 7 assessed: 02/20/25 Source: Developed by Drs. Onur L. WaylonKimberly abraham, Juan Manuel Lara and colleagues, with an educational leah from [employer]. Physical exam (Primary Care) Vital Signs: Last Vital Signs Pulse 103 H 02/20/25 08:36 Resp 16 02/20/25 08:36 BP 112/78 02/20/25 08:36 Pulse Ox 98 02/20/25 08:36 Oxygen Delivery Method Room Air 02/20/25 08:36 Tobacco/Smoking Status: Tobacco use Status Tobacco use date assessed 02/20/25 02/20/25 08:37 Patient Tobacco Use Status Former Tobacco user 02/20/25 08:37 e-Cigarette/Vaping Use Never Used 02/20/25 08:37 Thrive Assessment: Date of Thrive Assessment Date Thrive assessed 07/10/24 02/20/25 08:37 Coding Level of Care Code Est Pt Level 3 (68762) Diagnoses Anxiety F41.9 Panic attack F41.0 Assessment & Plan Assessment & Plan (1) Anxiety: Code(s): F41.9 - Anxiety disorder, unspecified Category: Medical (2) Panic attack: Code(s): F41.0 - Panic disorder [episodic paroxysmal anxiety] Category: Medical Plan . Medications: New lorazepam 0.5 mg PO DAILY PRN 30 tabs 0RF anxiety 30 days Discontinued alprazolam Discontinued Reason: Doctor's Order (1 - 2 x 0.25 mg) 0.25 - 0.5 mg orally 30 minutes prior to MRI, may repeat x's 1; PRN; 1 day 4 tabs 0RF anxiety MDD 4 tabs
[2025-02-20 08:36] VITALS: BP 112/78; PULSE 103; RESP 16; O2SAT 98
== END 2025-02-20 09:22 | disposition home or self-care (01) ==
LOC: HO.HMCC 08:26
PROVIDERS: PCP Nurse Practitioner Family; Visit Provider Nurse Practitioner Family
DX: F41.9 Anxiety disorder, unspecified (principal); F41.0 Panic disorder [episodic paroxysmal anxiety]

== ENCOUNTER 2025-04-02 07:15 | Outpatient (AMB) | payer BC, SELFPAY ==
--- NOTE | 2025-04-02 07:04 | A.OFFVIS_ITS ---
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 Required: No Accompanied by: Self / Same As Patient Allergies Sulfa (Sulfonamide Antibiotics) Allergy (Intermediate, Verified 04/02/25 07:07) hives sulfamethoxazole (From BACTRIM) Allergy (Intermediate, Verified 04/02/25 07:07) HIVES trimethoprim (From BACTRIM) Allergy (Intermediate, Verified 04/02/25 07:07) HIVES lisinopril Adverse Reaction (Mild, Verified 04/02/25 07:07) Cough Medication List - Last Reconciled 04/02/25 by LUZ Alonso albuterol sulfate 90 mcg/actuation 1 inh inhalation QID PRN blood sugar diagnostic (FreeStyle Lite Strips) test blood sugar once a day blood-glucose meter (FreeStyle Lite Meter kit) As directed ibuprofen 800 mg PO Q8H PRN 30 days lancets (FreeStyle Lancets) Test blood sugar once a day lorazepam 0.5 mg PO DAILY PRN 30 days metformin 500 mg PO DAILY omeprazole 20 mg PO BID PRN phentermine 30 mg PO DAILY 30 days rosuvastatin 5 mg PO DAILY sertraline 100 mg PO DAILY 30 days sumatriptan succinate take 1 tab at onset of headache; if no relief may repeat 1 tab after at least 2 hrs; max = 4 tabs/24 hr PO ubrogepant (Ubrelvy) 50 - 100 mg (0.5 - 1 x 100 mg) PO ONCE PRN 30 days HPI Comments Details: Left-handed 39-year-old female presents for follow-up visit for chronic headaches- via tele video visit. 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 Considering patient's history, of known history of CVA, late subacute hemorrhage is favored. Upon review, we had referred patient to be seen medical neurosurgery, however patient has not received an appointment from them yet. She continues to have least 1-2 headache days per week, she has had 1 severe migraine with visual aura of flashing lights sensory last visit here. She notes that she also is having shooting pain in the right shoulder region, and states that she has had an extensive workup and done PT, without much benefit. However, she feels that gabapentin can be helpful. She continues on phentermine for weight loss, which is effective for her. She tried and stopped Propranolol, as it made her feel terrible. She is compliant with the OTC riboflavin, magnesium and Co Q10 Sumatriptan is still helpful She missed the home sleep study appointment, noted that she did not receive any messages regarding this. 02/05/25, MR/MR angio head wo con IMPRESSION: No main cerebral artery occlusion or embolus. No gross cerebral aneurysm. 02/05/25, MR/MR head/brain wo/w con IMPRESSION: No acute stroke/nonhemorrhagic ischemia. 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 01/02/2025, initial HPI: The patient is a left-handed 39-year-old female presenting with chronic headaches. With PMH notable for h/o stroke in 2004, HTN, systolic murmur, HLD, DM, obesity, anxiety, PTSD, depression, ADHD, PCOS, GERD, anemia, fatigue, and insomnia, post-COVID chronic SOB, fatty liver disease, cervicalgia with/ cervical myelopathy/radiculopathy, right shoulder tendinitis, ws/p cholecystectomy in 2014. She began experiencing short-lasting recurrent headaches with intense stabbing pain in the temporal region as early as age 19, without a known provoking cause. Then, a few years ago, she began experiencing a new, more migraine-like headache. Over time, both headaches have become more frequent and severe. A comprehensive review of both headaches is outlined below. Patient provides an overview of her previous 2005 stroke. 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 Patient reports that no definite cause for the embolic stroke was identified, but she was an active smoker at the time and had just started using a contraceptive patch. After recovery, she discontinued blood thinners but was advised against the use of estrogen-containing contraceptives. She states she was seeing cardiology and neurology for some time after the stroke, but then was lost to care d/t an insurance lapse. However, recently saw [facility] [place] [place] neurosurgery, who was concerned regarding signs of hyperreflexia, clonus, positive Babinski sign. Paternal grandfather has a h/o of fatal stroke in his late 70s, Paternal grandmother had a fatal ruptured intracranial aneurysm in her late 70s. Results * Cervical Spine MRI (November 26, 2024): Demonstrated cervical spondylosis with herniation at C5-6 and C6-7, causing cord compression without edema or myelopathy; right greater than left foraminal stenosis at C5-6, and bilateral foraminal stenosis at C6-7. * Records of prior brain MRI following stroke in 2004 are not immediately available. Review of Systems * Neurological: Reports headaches; previous stroke with residual memory difficulties. Dizziness, Occasional hand tremor. * Ophthalmologic: Dry eyes, eye pain/photophobia during headache, glasses * Respiratory: Cough, wheezing * ENT: Reports phonophobia during tension headaches. * Cardiovascular: Denies chest pain. * Gastrointestinal: Reports GERD, nausea, bloating, and episodic diarrhea related to diet. * Musculoskeletal: Reports neck pain and some rightsided hand weakness, tremors, and motor function impairment. Back pain. Balance difficulties. Swollen joints. * Endocrine: History of obesity and diabetes, reports successful weight management recently. * Psychiatric: Reports anxiety, PTSD symptoms, and depression. * Skin: Rash, itching Pertinent denials: Denies kidney stones, constipation, history of concussion, thyroid disorders. Family History * Paternal Grandfather: Stroke * Paternal Grandmother: Aneurysm leading to * Patient denies the following past medical history: Denies Headache questionnaire: * Types of headache disorders: 2 1st Typical headache characteristics: Onset: Age 19 Preceding causes: denies Prodrome symptoms: denies Aura: denies Pain intensity: severe- stops her in her tracks Location, quality, characteristics: unilateral (right or left-sided) temporal severe sharp stabbing x's 5-30 seconds Associated symptoms: mild watery eyes Postdrome: denies Triggers: denies Time of day: No specific time of day Duration and Frequency: occurs sporadically, typically 4-5 days a month. Attacks may recur after a couple of minutes. More recently, she has had an increase in the number of attacks in 1 day- one day, right-sided attacks came and went all day. Headache impact on patient's quality of life: in the moment, she cannot function, but can do her usual activities. 2nd Typical headache characteristics: Onset: a few years ago Preceding causes: none Prodrome symptoms: pressure, tightness, fogginess in her head Aura: flashing lights Pain intensity: moderate-severe Location, quality, characteristics: Ache and throbbing in the bifrontal and bitemporal Associated symptoms: photophobia, phonophobia, osmophobia, nausea, not right in space dizziness, lightheadedness, cognitive difficulties, activity intolerance, Postdrome: lingers some Triggers: stress, heat, sustained exercise or strenuous activity, elevated blood pressure Time of day: No specific time of day Duration and Frequency: 1-2 x's per week, lasting hours to 3 days, Headache impact on patient's quality of life: tries to push through Current headache treatments: Current acute medication use/interventions: Sumatriptan 25mg, which does help if caught at the onset of the headache. Ibuprofen 800 mg can be helpful. Current preventative medication use: Bupropion SR 100 mg b.i.d. for mood in ADHD. Magnesium 400 mg daily at bedtime for general health. Current non-pharmacological interventions: rest if able Headache Lifestyle Factors Caffeine: Consumes two to three cups of coffee daily in the morning. Nutrition: * Recent shifts resulting from a liquid-based weight loss program and phentermine trial * She denies known food allergies but reports episodic diet-related diarrhea. Substance use: * Previously smoked, quit after a stroke. * Rarely consumes alcohol socially and avoids smoking. Exercise: * Exercises frequently at work with job functions involving regular physical activity and sporadic high-intensity bouts. Goals include maintaining regular exercise to support weight management and overall well-being. Reproductive health: * Previously advised to avoid estrogenic supplements due to h/o stroke on OCP. 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 * Reports high job demands and routine physical activity embedded in job tasks. Sleep * Reports going to bed between 10:00 and 12:00 p.m., typically takes 1 to 2 hours to fall asleep. * Wakes at 6:00?6:30 a.m. * Reports difficulties falling and staying asleep, as well as some daytime fatigue, snoring, witnessed apneas, bruxism, and occasional restless leg syndrome symptoms. * Consumes caffeine during the morning and avoids alcohol and late-day caffeine. * No naps; a regular work week contributes to a structured, regular sleep-wake cycle. [facility] Medical History (Updated 02/20/25 @ 09:00 by John Wright [facility]) Diabetes Anxiety PTSD (post-traumatic stress disorder) Anemia Panic attack History of PCOS History of anemia Surgical History S/P colonoscopy Hx of cholecystectomy History of myringotomy History of tonsillectomy Family History Father Acute MA CVD (cardiovascular disease) Mental health disorder Mother HTN (hypertension) Diabetes mellitus Depression Mental health disorder Maternal Grandmother Lung cancer Mental health disorder Paternal Grandmother Brain aneurysm CVD (cardiovascular disease) Mental health disorder Maternal Grandfather Mental health disorder Paternal Grandfather Mental health disorder Sister Mental health disorder Social History Housing: Apartment Are you a primary acute care assistant to a significant other at home: No Do you presently have visiting nurse or other home services: No Alcohol intake: current Alcohol intake frequency: holidays/special occasions only Patient Tobacco Use Status: Former Tobacco user e-Cigarette/Vaping Use: Never Used Second Hand Smoke Exposure: Yes Substance Use Type: Marijuana service: No Current occupational status: employed Current occupation: [employer] Current occupational exposures/hazards: No Cognitive needs: No Hearing needs: No Vision needs: No Physical Exam Const Orientation/consciousness: patient oriented x3 Resp Effort & Inspection: normal respiratory effort and able to speak in complete sentences Neuro General: patient oriented x3 Cognition (Neuro): normal cognition Gait exam (Neuro): Normal gait present Pupils: Normal pupillary reactivity/response: bilateral Psych Appearance: grossly normal Mental Status: mental status grossly normal Speech and movement: Clear speech present Affect: normal affect Attitude: cooperative Thought process: Normal thought process present Telehealth Telehealth Telehealth Platform: Scopely Location of provider rendering services: practice address Location of patient: address on file Patient Identification confirmed using: Name, : Yes Telehealth method: video Patient verbally consented to treatment: Yes Patient verbally consented to billing insurance company: Yes Patient informed of any privacy concerns related to visit: Yes Minutes spent on Phone/Video with Pt.: 23 Assessment & Plan Assessment & Plan (1) Worsening headaches: Code(s): R51.9 - Headache, unspecified Category: Medical (2) Family history of intracranial hemorrhage: Code(s): Z82.3 - Family history of stroke Category: Medical (3) Snoring: Code(s): R06.83 - Snoring Category: Medical (4) Fatigue: Code(s): R53.83 - Other fatigue Category: Medical Qualifiers: Fatigue type: unspecified Qualified Code(s): R53.83 - Other fatigue (5) Sleep difficulties: Comment: [place] sleepiness scale- 11 Code(s): G47.9 - Sleep disorder, unspecified Category: Medical (6) Stabbing headache: Code(s): G44.85 - Primary stabbing headache Category: Medical (7) Migraine with aura, not intractable, without status migrainosus: Code(s): G43.109 - Migraine with aura, not intractable, without status migrainosus Category: Medical Plan Discussion Notes Reviewed interval brain MRI and MRA results, as per HPI. Therefore, patient is advised to avoid all triptans and DHE due to history of CVA, which is evidenced on the recent head imaging. We will follow-up on the neurosurgery consult order and home sleep study order. You are advised to undergo the following: Neurosurgery consult as ordered Home sleep study as ordered Headache Management Tips Combining good self-care with some helpful tools can make managing headaches much easier. Healthy Habits ? Eat a balanced diet ? Drink enough water throughout the day, typically at least 64 oz of fluid per day ? Get regular, adequate sleep consisting of 7-9 hours of sleep per night ? Stay active with routine physical activity, typically at least 30 minutes 5 days per week ? Stay connected with friends and family, enjoy meaningful activities, and take care of your mood Tracking Your Headaches ? Write down when headaches happen, what helps, and any side effects of new treatments ? Tracking is most important after changes in your treatment plan ? Options: - Apps such as Migraine Mickey - A simple paper calendar Non-Medication Strategies ? Light sensitivity: special glasses may help (blue-light or FL-41 filters, green lenses) or green-light therapy - Avoid wearing dark sunglasses indoors ? Sound sensitivity: noise-canceling earplugs can reduce bothersome noise ? Neuromodulation devices: certain medical devices can be used alone or with medications to lower headache frequency and severity ? Neuromodulation devices: specific medical devices can be used alone or with medications to lower headache frequency and severity These strategies may not stop every attack, but over time, they can reduce headache frequency, intensity, and impact. For acute (as needed) headache treatment: It is important to take acute medications at the first sign of headache. However, please be aware that frequently using most acute medications may increase the frequency of your headache attacks, as well as make your other treatments less effective. * Stop Sumatriptan 25 mg d/t h/o CVA * Trial Ubrogepant (Ubrelvy) 100mg tab, 1/2 - 1 tab (50-100mg) at onset of headache, may repeat in 2 hours. Max of 2 tabs (200mg) per 24 hours. * May adjunct with OTC Tylenol 650mg q 4 hours, Ibuprofen 600mg q 6 hours, or Naproxen 440mg q 12 hrs prn. * Potential adverse effects, include but are not limited to fatigue, nausea, dry mouth, constipation Previous acute migraine medication trials: Cyclobenzaprine ineffective, indomethacin-unsure of effect, prednisone/dexamethasone-unsure of effect Acute migraine medication contraindications: Avoid all triptans and DHE due to history of stroke For headache prevention medication: Preventative medications should be taken routinely as prescribed for best effect, it may take several weeks for full effect to take effect. * OTC Riboflavin 400mg daily in the morning * This is generally well tolerated, however some people may experience mild abdominal discomfort from use. * This will cause your urine to become bright yellow or orange, which is expected and not of any concern. * OTC Magnesium 400mg daily at bedtime * Magnesium comes in many subtypes, such as magnesium oxide, glycinate, citrate, and even try magnesium combinations. Additionally magnesium comes in many forms, including tablets, capsules, powders or even liquid formulations. There is not a specific magnesium subtype or form known to be significantly more effective than another. Rather, the magnesium subtype inform that you best tolerate, is the best version for you. * Possible side effects of magnesium include, but are not limited to, GI upset, abdominal cramping, loose stools, and diarrhea * OTC Co Q10 400 mg daily in the morning * Take with higher fat foods * Stop Propranolol ER 60 mg daily at bedtime- not tolerated * Start Gabapentin 300mg 3 x's per day- this may help arm pain as well. Previous migraine prevention medication trials: Topamax- ineffective and not tolerated. Gabapentin ineffective Migraine prevention medication contraindications: Amitriptyline/TCAs due to phentermine use. Propranolol- not tolerated. We will follow-up upon review of above and with a follow-up clinic visit in 3-6 months or sooner as needed. Medications: New ubrogepant (Ubrelvy) take at onset of migraine, may repeat in 2hrs (may take w/ Ibuprofen) 50 - 100 mg (0.5 - 1 x 100 mg) PO ONCE PRN 16 tabs 3RF migraine headache 30 days gabapentin 300 mg PO TID 90 caps 6RF 30 days Coding Level of Care Code Tele Est Pt Level 4 (61922) Diagnoses Worsening headaches R51.9 Family history of intracranial hemorrhage Z82.3 Snoring R06.83 Fatigue, unspecified type R53.83 Fatigue type: unspecified Sleep difficulties G47.9 Stabbing headache G44.85 Migraine with aura, not intractable, without status migrainosus G43.109
--- OUTSIDE RECORDS SUMMARY | 2025-04-02 07:18 | XMS_ITS | Clinical Summary ---
Author Organization [facility] Address [address] [place] [id number] Phone Care Team Providers Care Security System Analyst Name Role Phone Yoana Carballo MD [...] age to complete this topic Care Teams Security System Analyst Relationship Specialty Start Date End Date Yoana Carballo MD PCP - General 12/16/16
--- OUTSIDE RECORDS SUMMARY | 2025-04-02 07:18 | XMS_ITS | Clinical Summary ---
Author Organization [facility] Address [address] [place] [address] Care Team Providers Care Table Games Manager Name Role Phone Unavailable Primary Care [...] series) 2013 Depression Screening 05/08/2024 COVID-19 Vaccine (1 - 2024-2 6 season) 2025 Influenza Vaccine (#1) 2025 RSV [...]
--- OUTSIDE RECORDS SUMMARY | 2025-04-02 07:18 | XMS_ITS | Encounter Summary ---
Author Organization [facility] Address [address] [place] [id number] Phone Care Team Providers Care Store Hand Name Role Phone Yoana Carballo MD Primary Care Provider Unava ilable Encounter Details Date Type Department Care Team (Late st Contact Info) Description 12/22/2016 Conversion Encounter [facility] - [address] [phone] Social History Tobacco Use Types Packs/Day Years [...] on filedocumented in this encounter Care Teams Store Hand Relationship Specialty Start Date End Date Yoana Carballo MD PCP - General 12/16/16 documented as of this encounter
== END 2025-04-02 14:11 | disposition home or self-care (01) ==
LOC: HO.HSMS 07:15
PROVIDERS: PCP Nurse Practitioner Family; Visit Provider Nurse Practitioner Family
DX: G44.85 Primary stabbing headache (principal); Z82.3 Family history of stroke; R06.83 Snoring; R53.83 Other fatigue; G47.9 Sleep disorder, unspecified; G43.109 Migraine with aura, not intractable, without status migrainosus
CPT/HCPCS: 99214